=== PATIENT | female | born 1995 | race Caucasian/White ===

== ENCOUNTER → 2017-01-15 | Outpatient (CLI) | payer BC ==
[~2017-01-15] MED LIST: BCPILLS PO; ESCI1TAB10 PO
--- NOTE | 2017-01-15 09:39 | DIAGNOSTIC IMAGING REPORT ---
EXAMINATION: PELVIC ULTRASOUND CLINICAL HISTORY: AMENORRHEA PELVIC PAIN COMPARISON STUDY: None FINDINGS: The uterus measured 5.9 cm. It is retroflexed in configuration.. The endometrial stripe measured 8 mm. The right ovary measured 4.0 cm maximum with a 2.5 cm cyst. Normal vascular flow. The left ovary measured 3.2 cm with normal vascular flow. There is no ultrasonographic evidence of ovarian torsion. It should be noted that ovarian torsion can be present with normal Doppler ultrasonographic findings. There was no evidence of pathologic free pelvic fluid. IMPRESSION: 2.5 cm right ovarian cyst. Retroflexed uterus. Otherwise negative study Electronically signed by: Shailesh Rawls M.D. 01/15/2017 9:37 AM Dictated Date/Time: 01/15/2017 9:36 AM
== END | disposition home or self-care (01) ==
LOC: C.ULTR 08:56
PROVIDERS: ATTEND Nurse Practitioner Family
DX: N91.2 Amenorrhea, unspecified (principal); N94.10 Unspecified dyspareunia; N83.201 Unspecified ovarian cyst, right side; N85.4 Malposition of uterus

== ENCOUNTER → 2017-03-05 | Outpatient (CLI) | payer BC ==
--- NOTE | 2017-03-05 08:35 | DIAGNOSTIC IMAGING REPORT ---
EXAMINATION: PELVIC ULTRASOUND CLINICAL HISTORY: OVARIAN CYST CYST COMPARISON STUDY: 01/15/2017 FINDINGS: The uterus measured 5.5 cm. Retroflexed configuration.. The endometrial stripe measured 6 mm. The right ovary measured 3.2 cm with several small sub-5 mm follicular cyst.. The left ovary measured 3.3 cm with a complex 1.7 x 2.0 cm cyst. There is no ultrasonographic evidence of ovarian torsion. It should be noted that ovarian torsion can be present with normal Doppler ultrasonographic findings. There was no evidence of pathologic free pelvic fluid. IMPRESSION: 1. Near complete resolution of the patient's previous described right ovarian cyst. Several small follicular cyst. 2. Interval development of a 2 cm complex left ovarian cyst. 3. A retroflexed uterus Electronically signed by: Shailesh Rawls M.D. 03/05/2017 8:33 AM Dictated Date/Time: 03/05/2017 8:31 AM
== END | disposition home or self-care (01) ==
LOC: C.ULTR 07:52
PROVIDERS: ATTEND Nurse Practitioner Family
DX: N83.201 Unspecified ovarian cyst, right side (principal)

== ENCOUNTER → 2017-03-24 | Outpatient (CLI) | payer BC ==
--- NOTE | 2017-03-24 13:49 | DIAGNOSTIC IMAGING REPORT ---
PELVIC ULTRASOUND CLINICAL HISTORY: Ovarian cyst. COMPARISON STUDY: Pelvic ultrasound March 05, 2017. TECHNIQUE: Transabdominal and transvaginal sonography of the pelvis was performed. FINDINGS: The uterus measures 6.8 x 3.1 x 3.9 cm. Endometrium measures 5 mm in thickness. The right ovary measures 2.9 x 1.8 x 1.7 cm and the left ovary measures 2.4 x 1.6 x 1.7 cm. The left ovarian cystic lesion shown on exam of March 05, 2017 has resolved. There is color flow within each ovary. IMPRESSION: Normal pelvic ultrasound. Electronically signed by: Petye Jones M.D. 03/24/2017 1:48 PM Dictated Date/Time: 03/24/2017 1:45 PM
== END | disposition home or self-care (01) ==
LOC: C.ULTR 13:12
PROVIDERS: ATTEND Nurse Practitioner Family
DX: N83.202 Unspecified ovarian cyst, left side (principal); R10.32 Left lower quadrant pain; N94.10 Unspecified dyspareunia

== ENCOUNTER 2020-08-05 07:39 | Inpatient (IN) ==
[2020-08-05] MEDS ORDERED: MAGNESIUM SULFATE / D5W 1 GM/100 ML BAG IV ONE (07:52)
[2020-08-05] MEDS ORDERED: methylPREDNISolone 125 MG/2 ML VIAL IV STA (07:54)
[2020-08-05] MEDS ORDERED: LEVALBUTEROL TARTRATE 15 GM HFA.AER.AD INH STA (08:01)
[2020-08-05] MEDS ORDERED: TIOTROPIUM BROMIDE 5 PUFF/90 MCG INH INH STA (08:01)
[2020-08-05 08:34] LABS: Basophils # (auto) 0.02 K/uL (0-0.2); Basophils % (auto) 0.1 %; Eosinophils # (auto) 0.07 K/uL (0-0.5); Eosinophils % (auto) 0.3 %; Hemoglobin 15.7 g/dL (12.0-16.0); Immature Granulocytes # (auto) 0.06 K/uL (0.00-0.02); Immature Granulocytes % (auto) 0.3 %; Lymphocytes # (auto) 1.85 K/uL (1.2-3.4); Lymphocytes % (auto) 8.9 %; Mean Corpuscular Hemoglobin 31.5 pg (25-34); Mean Corpuscular Hgb Conc 34.1 g/dL (32-36); Mean Corpuscular Volume 92.2 fL (80-100); Mean Platelet Volume 10.5 fL (7.4-10.4); Monocytes # (auto) 2.58 K/uL (0.11-0.59); Monocytes % (auto) 12.4 %; Neutrophils # (auto) 16.26 K/uL (1.4-6.5); Platelet Count 264 K/uL (130-400); RDW Coefficient of Variation 13.7 % (11.5-14.5); RDW Standard Deviation 46.1 fL (36.4-46.3); Red Blood Count 4.99 M/uL (4.2-5.4); White Blood Count 20.84 K/uL (4.8-10.8)
[2020-08-05] MEDS ORDERED: UMECLIDINIUM BROMIDE 62.5MCG/BLISTER 7 PUFFS/INHALER INH STA (08:41)
[2020-08-05 08:45] LABS: INR 1.1 (0.9-1.1); Partial Thromboplastin Ratio 0.9; Partial Thromboplastin Time 24.6 Seconds (21.0-31.0); Prothrombin Time 11.5 Seconds (9.0-12.0)
--- NOTE | 2020-08-05 08:48 | XRay Report ---
XR chest 1V portable HISTORY: 24 years-old Female SEPSIS acute sepsis COMPARISON: Chest radiograph 01/31/2020 TECHNIQUE: Portable AP view of the chest FINDINGS: Cardiomediastinal and hilar silhouettes are within normal limits. No pneumothorax, pleural effusion, airspace consolidation or overt pulmonary edema. Bones of the chest appear grossly intact. Mid thorac ic dextroscoliosis. IMPRESSION: No acute process. ACT 112: Negative or not required by law. The above report was generated using voice recognition software. It may contain grammatical, syntax o r spelling errors. Electronically signed by: Nikhil Godinez M.D. 08/05/2020 8:46 AM
[2020-08-05 08:57] LABS: Alanine Aminotransferase 30 U/L (12-78); Albumin Level 4.3 gm/dl (3.4-5.0); Aspartate Aminotransferase 30 U/L (15-37); BUN Creatinine Ratio 19.7 (10-20); Blood Urea Nitrogen 17 mg/dl (7-18); Calcium 9.7 mg/dl (8.5-10.1); Carbon Dioxide 24 mmol/L (21-32); Chloride 107 mmol/L (98-107); Creatinine Clr Calc Pharmacy 89.3 ml/min; Est GFR (African American) 108.1; Est GFR (Non-African American) 93.2; Glucose 81 mg/dl (70-99); Magnesium 2.3 mg/dl (1.8-2.4); Potassium 3.9 mmol/L (3.5-5.1); Sodium 139 mmol/L (136-145)
[2020-08-05 09:01] LABS: Albumin Globulin Ratio 1.2 (0.9-2); Alkaline Phosphatase 53 U/L (45-117); Bilirubin,Total 0.7 mg/dl (0.2-1); Globulin 3.6 gm/dl (2.5-4.0); Total Protein 7.9 gm/dl (6.4-8.2); Troponin I < 0.015 ng/ml (0-0.045)
[2020-08-05] MEDS ORDERED: ALBUT/IPRATROP 3MG/0.5MG NEB 3 ML VIAL NEB ONE (09:27)
--- NOTE | 2020-08-05 10:52 | History & Physical Report ---
Date of Service August 05, 2020 Assessment & Plan (1) Acute respiratory failure with hypoxia: 2nd to severe asthma exacerbation. NC O2 to keep sats 92% or greater. Steroids. nebs. pulmonary toilet. COVID negative. Check rapid flu and rapid RSV. (2) Asthma with exacerbation: Severe exacerbation. Underlying allergies likely playing a role. Occupational exposure to various solvents also likely contributing. Tobacco exposure (father) at home likely worsening her symptoms. Can't rule out viral process. Plan - * 2mg/kg/day of IV solumedrol (40mg IV q8h) * duonebs q4h * mucinex BID * flutter valve * incentive spirometry * defer on antibiotics -- procalcitonin negative, cxr negative for complicating pneumonia * place on telemetry (3) Uncontrolled severe persistent asthma: As mentioned above numerous triggers are present at home and her workplace. She will need referral to pulmonary and allergy post-d/c for regular asthma care, allergy testing, etc. 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 Start controller agent with fluticasone/vilanterol. Continue singulair. Scheduled nebs. Pulmonary toilet. If she does not improve with above measures then pulmonary consult while hospitalized. (4) Allergic rhinitis: Continue singulair. Consider antihistamine. (5) Occupational exposure to chemicals: see above (6) Anxiety disorder: Cont fluoxetine. Cont buspar. add xanax 0.25mg q8h prn for hospital use only. (7) Leukocytosis: 2nd to IM steroids given at local urgent care yesterday? Procalcitonin negative. no Pneumonia on cxr. afebrile. follow. (8) DVT prophylaxis: heparin 5000 BID check urine HCG IV fluids - NS w/ KCL repeat labs am father updated by phone this evening History of Present Illness Chief Complaint: difficulty breathing Primary Care Provider: ZACHARY Martinez 24yo female with history of asthma dating back to age 3 and allergic rhinitis presents with cough productive of yellow sputum and increasing shortness of breathing with wheezing. Has been ill with asthma symptoms for about 1 month, but much worse in the last 2-3 days. No fevers or chills. No obvious COVID exposures or travel. Saw a local urgent care yesterday for the same symptoms - given IM steroids and sent home on PO steroids but never started the latter. Has been using albuterol on a daily basis since a visit for her asthma in our ER in 06/2020. Records show she received a short prednisone course at that time. Has nocturnal cough which prompts her to use the albuterol at night, but also uses albuterol frequently during the day time. Records also show another ER visit in January 2020 for her asthma. She does not smoke, but her father smokes cigarettes. She states he does so outside the home. The family does have a dog. Allergies Allergy/AdvReac Type Severity Reaction Status Date / Time CATS,DOGS,DUST Allergy Unknown HIVES Uncoded 07/05/20 13:45 Home Medications Medication Instructions Recorded Confirmed Type albuterol sulfate 2 puffs INH Q4H PRN #8 gm 01/31/20 08/05/20 Rx fluoxetine 40 mg PO QAM 01/31/20 08/05/20 History buspirone 10 mg tablet 10 mg PO BID 05/14/20 08/05/20 History albuterol sulfate 2.5 mg INHALATION UD 07/05/20 08/05/20 History L. acidophilus-L. rhamnosus 1 cap PO DAILY 08/05/20 08/05/20 History [Probiotic] montelukast 10 mg PO HS 08/05/20 08/05/20 History multivitamin 1 tab PO QAM 08/05/20 08/05/20 History Past Med/Surg History Medical History (Updated 08/05/20 @ 21:14 by Herminio Nieves) Allergic rhinitis Anxiety disorder Asthma Surgical History (Updated 08/05/20 @ 11:05 by Herminio Nieves) H/O wisdom tooth extraction Family History (Updated 08/05/20 @ 11:07 by Herminio Nieves) Father Dyslipidemia Myxoma of heart Tobacco dependency Denies family history of Asthma Social History (Updated 08/05/20 @ 11:08 by Herminio Nieves) Smoking Status: Never smoker Hx Alcohol Use: Yes Alcohol type: wine Alcohol Intake Frequency: Monthly or Less Hx Substance Use: No Communication Ability: Effective Director Of Software Development Required: No Beliefs That Will Affect Care: None marital status: Single Current Living Situation: Parent Current Living Situation Comment: father - in [place] current occupational status: employed current occupation: works at [employer]. Uses solvents at work. How many Children do You have: 0 Other Information That Helps Us Care for You: No Feels Safe at Home: Yes Safety Concerns: Feels Safe At This Time Assistive Devices: Oxygen - Continuous Review of Systems Constitutional: no fever, no chills, no body aches, no fatigue and no anorexia Eyes: no worsening vision Ear, Nose, Mouth, Throat: + nasal congestion; no sore throat no loss of taste or smell Respiratory: + cough, + dyspnea, + dyspnea on exertion, + sputum production and + wheezing Cardiovascular: + chest pain; no edema Gastrointestinal: + abdominal pain (with coughing); no nausea and no vomiting Genitourinary: LMP 3 weeks ago Musculoskeletal: no myalgia Integumentary: no rash Neurologic: no localized weakness Psychiatric: + anxiety Endocrine: denies diabetes Hematologic / Lymphatic: no easy bleeding Physical Exam Constitutional: + acute distress (mild tachypnea, but can talk in complete sentences ); not obese and no altered mental status Eyes: PERRL ENMT: Mouth: + oropharynx abnormality (cobblestoning posterior wall ) Neck: trachea midline, no thyromegaly Respiratory: + cough and + tachypneic; no retractions Auscultation: + diminished lung sounds (bases ) and + wheezes (extensive b/l, all lung segments); no crackles expiratory phase prolonged Cardiovascular: Rate/Rhythm: regular rhythm and + tachycardic Heart Sounds: normal S1 and normal S2; no murmur Vessels: posterior tibial pulses present and dorsalis pedis pulses present; no JVD Extremities: no edema Gastrointestinal (Abdomen): normal bowel sounds, soft, nontender, no hepatosp lenomegaly Musculoskeletal: no cyanosis or clubbing, extremities motor strength 5/5 Skin: no rashes, warm and dry Neurologic: moves all extremities; no focal motor deficits Psychiatric: Orientation: alert and oriented x 3 Lymphatic: no cervical lymphadenopathy Results & Data Results & Data ([facility]) Vital Signs (Past 12 Hours) Vital Signs Temp Pulse Pulse Resp BP Pulse Ox 08/05/20 10:31 135 H 22 96 08/05/20 10:30 122 H 20 152/85 H 95 08/05/20 10:01 104 H 22 97 08/05/20 10:00 100 H 20 132/88 96 08/05/20 09:52 88 18 91 08/05/20 09:31 108 H 24 93 08/05/20 09:30 112 H 20 158/97 H 92 08/05/20 09:01 130 H 23 93 08/05/20 09:00 20 133/89 93 08/05/20 08:38 97 08/05/20 08:37 104 H 22 94 08/05/20 08:31 119 H 22 94 08/05/20 08:30 114 H 20 132/109 H 93 08/05/20 08:29 23 154/102 H 94 08/05/20 08:27 104 H 20 95 08/05/20 07:47 37.2 C 116 H 24 133/87 87 L Laboratory Results Laboratory Results - last 24 hr 08/05/20 08/05/20 08/05/20 08:18 08:18 08:18 WBC 20.84 H RBC 4.99 Hgb 15.7 Hct 46.0 MCV 92.2 MCH 31.5 MCHC 34.1 RDW Std Deviation 46.1 RDW Coeff of Noé 13.7 Plt Count 264 MPV 10.5 H Immature Gran % (Auto) 0.3 Neut % (Auto) 78.0 Lymph % (Auto) 8.9 [place] % (Auto) 12.4 Eos % (Auto) 0.3 Baso % (Auto) 0.1 Neut # (Auto) 16.26 H Lymph # (Auto) 1.85 [place] # (Auto) 2.58 H Eos # (Auto) 0.07 Baso # (Auto) 0.02 Immature Gran # (Auto) 0.06 H PT 11.5 INR 1.1 APTT 24.6 PTT Ratio 0.9 Sodium 139 Potassium 3.9 Chloride 107 Carbon Dioxide 24 Anion Gap 8.0 BUN 17 Creatinine 0.86 Est Cr Clr Drug Dosing 89.3 Est GFR ( Amer) 108.1 Est GFR (Non-Af Amer) 93.2 BUN/Creatinine Ratio 19.7 Glucose 81 Lactate Calcium 9.7 Magnesium 2.3 Total Bilirubin 0.7 AST 30 ALT 30 Alkaline Phosphatase 53 Troponin I < 0.015 Total Protein 7.9 Albumin 4.3 Globulin 3.6 Albumin/Globulin Ratio 1.2 Procalcitonin COVID-19 Eval Order SARS-CoV-2, RNA, NAAT 08/05/20 08/05/20 08/05/20 08:18 08:18 08:30 WBC RBC Hgb Hct MCV MCH MCHC RDW Std Deviation RDW Coeff of Noé Plt Count MPV Immature Gran % (Auto) Neut % (Auto) Lymph % (Auto) [place] % (Auto) Eos % (Auto) Baso % (Auto) Neut # (Auto) Lymph # (Auto) [place] # (Auto) Eos # (Auto) Baso # (Auto) Immature Gran # (Auto) PT INR APTT PTT Ratio Sodium Potassium Chloride Carbon Dioxide Anion Gap BUN Creatinine Est Cr Clr Drug Dosing Est GFR ( Amer) Est GFR (Non-Af Amer) BUN/Creatinine Ratio Glucose Lactate 1.3 Calcium Magnesium Total Bilirubin AST ALT Alkaline Phosphatase Troponin I Total Protein Albumin Globulin Albumin/Globulin Ratio Procalcitonin < 0.05 COVID-19 Eval [facility] SARS-CoV-2, RNA, NAAT 08/05/20 08:30 WBC RBC Hgb Hct MCV MCH MCHC RDW Std Deviation RDW Coeff of Noé Plt Count MPV Immature Gran % (Auto) Neut % (Auto) Lymph % (Auto) [place] % (Auto) Eos % (Auto) Baso % (Auto) Neut # (Auto) Lymph # (Auto) [place] # (Auto) Eos # (Auto) Baso # (Auto) Immature Gran # (Auto) PT INR APTT PTT Ratio Sodium Potassium Chloride Carbon Dioxide Anion Gap BUN Creatinine Est Cr Clr Drug Dosing Est GFR ( Amer) Est GFR (Non-Af Amer) BUN/Creatinine Ratio Glucose Lactate Calcium Magnesium Total Bilirubin AST ALT Alkaline Phosphatase Troponin I Total Protein Albumin Globulin Albumin/Globulin Ratio Procalcitonin COVID-19 Eval Order SARS-CoV-2, RNA, NAAT NEGATIVE Diagnostic Findings cxr: no infiltrates EKG: NSR, no ST changes Code Status & VTE Plan Code Status full VTE Prophylaxis Plan VTE Prophylaxis will be ordered: Yes PG Care Time/CCT Total # of Minutes Spent Total Time Spent with Patient: Total time spent is greater than 50% in coordi nation of care (as documented) at patient's floor/unit and/or counseling patient: Coding Level of Care Code 85791 Initial Inpt Care Lvl 3 Diagnoses Acute respiratory failure with hypoxia J96.01 Asthma with exacerbation J45.51 Asthma severity: severe Asthma persistence: persistent Uncontrolled severe persistent asthma J45.50 Allergic rhinitis J30.89 Allergic rhinitis trigger: other Allergic rhinitis seasonality: unspecified Occupational exposure to chemicals Z77.098 Anxiety disorder F41.9 Leukocytosis D72.829 DVT prophylaxis Z29.9 (1) Asthma with exacerbation Asthma severity: severe Asthma persistence: persistent Qualified Code(s): J45.51 - Severe persistent asthma with (acute) exacerbation (2) Allergic rhinitis Allergic rhinitis trigger: other Allergic rhinitis seasonality: unspecified Qualified Code(s): J30.89 - Other allergic rhinitis
--- NOTE | 2020-08-05 11:11 | Electrocardiogram Report ---
Test Reason : Blood Pressure : / mmHG Vent. Rate : 089 BPM Atrial Rate : 089 BPM P-R Int : 108 ms QRS Dur : 070 ms QT Int : 352 ms P-R-T Axes : 048 058 056 degrees QTc Int : 428 ms Poor data quality, interpretation may be adversely affected Sinus rhythm with sinus arrhythmia Otherwise normal ECG When compared with ECG of 31-JAN-2020 13:34, No significant change was found Confirmed by Christiano Dos Santos ([id number]) on 08/05/2020 11:11:04 AM Referred By: REFERRED SELF Confirmed By:Vaughn Dos Santos
[2020-08-05] MEDS ORDERED: ALBUTEROL HFA 8 GM INHALER INH PRN (12:33)
[2020-08-05] MEDS ORDERED: ACETAMINOPHEN 325 MG TAB PO PRN (12:33)
[2020-08-05] MEDS: ALBUT/IPRATROP 3MG/0.5MG NEB 3 ML VIAL NEB SCH ×3 (13:58→20:35)
[2020-08-05] MEDS: methylPREDNISolone 40 MG in SYRINGE 0 ML IV SCH ×2 (14:02→21:20)
[2020-08-05] MEDS: NSS + 20MEQ KCL 20 MEQ/1,000 ML BAG IV SCH ×2 (14:02→23:46)
[2020-08-05] MEDS: guaiFENesin 600 MG TABCR PO SCH ×2 (16:55→22:24)
[2020-08-05] MEDS: FAMOTIDINE 20 MG TAB PO SCH ×2 (16:55→22:24)
[2020-08-05 17:47] LABS: Appearance Urine Clear (Clear); Bilirubin Urine Negative (Negative); Blood Urine Negative (Negative); Color Urine Yellow; Glucose Urine UA Negative (Negative); Ketones Urine 1+ (Negative); Leukocyte Esterase Urine Negative (Negative); Nitrite Urine Negative (Negative); Protein Urine Negative (Negative); Specific Gravity Urine 1.008 (1.000-1.030); Urobilinogen Urine Negative (Negative)
[2020-08-05 17:48] LABS: Pregnancy Test, Urine Negative (Negative)
[2020-08-05 18:52] LABS: Influenza A virus by PCR Negative (Negative); Influenza B virus by PCR Negative (Negative); RSV by PCR Negative (Negative)
[2020-08-05] MEDS ORDERED: LEVALBUTEROL 1.25MG/0.5ML NEB NEB SCH (19:30)
[2020-08-05] MEDS: LEVALBUTEROL HCL 1.25 MG/3 ML NEB NEB SCH (20:15)
[2020-08-05] MEDS ORDERED: busPIRone 5 MG TAB PO SCH (21:00)
[2020-08-05] MEDS: HEPARIN SOD 5,000 UNIT/0.5 ML VIAL SQ SCH (21:19)
[2020-08-05] MEDS: FLUTICASONE/VILANTEROL 200/25MCG 14 PUFFS/INHALER INH SCH (21:19)
[2020-08-05] MEDS: MONTELUKAST SODIUM 10 MG TABLET PO SCH (21:20)
[2020-08-06] MEDS: LEVALBUTEROL HCL 1.25 MG/3 ML NEB NEB SCH ×4 (00:17→20:21)
[2020-08-06] MEDS: methylPREDNISolone 40 MG in SYRINGE 0 ML IV SCH ×3 (06:08→20:49)
[2020-08-06 06:53] LABS: Hematocrit (blood only) 44.2 % (37-47); Hemoglobin 14.7 g/dL (12.0-16.0); Mean Corpuscular Hemoglobin 31.1 pg (25-34); Mean Corpuscular Hgb Conc 33.3 g/dL (32-36); Mean Corpuscular Volume 93.6 fL (80-100); Mean Platelet Volume 10.3 fL (7.4-10.4); Platelet Count 228 K/uL (130-400); RDW Coefficient of Variation 13.8 % (11.5-14.5); RDW Standard Deviation 47.6 fL (36.4-46.3); Red Blood Count 4.72 M/uL (4.2-5.4); White Blood Count 10.56 K/uL (4.8-10.8)
[2020-08-06 07:18] LABS: BUN Creatinine Ratio 16.4 (10-20); Creatinine Clr Calc Pharmacy 90.4 ml/min; Est GFR (African American) 109.6; Est GFR (Non-African American) 94.6; Potassium 4.1 mmol/L (3.5-5.1)
[2020-08-06] MEDS: FLUTICASONE/VILANTEROL 200/25MCG 14 PUFFS/INHALER INH SCH (08:15)
[2020-08-06] MEDS: FAMOTIDINE 20 MG TAB PO SCH ×2 (08:16→20:50)
[2020-08-06] MEDS: MULTIVITAMIN TAB PO SCH (08:16)
[2020-08-06] MEDS: busPIRone 5 MG TAB PO SCH ×3 (08:16→20:50)
[2020-08-06] MEDS: guaiFENesin 600 MG TABCR PO SCH ×2 (08:16→20:49)
[2020-08-06] MEDS: ADVANCED PROBIOTIC 1250 MG CAPSULE PO SCH (08:17)
[2020-08-06] MEDS: FLUoxetine HCL 20 MG CAP PO SCH (08:17)
[2020-08-06] MEDS: HEPARIN SOD 5,000 UNIT/0.5 ML VIAL SQ SCH ×2 (08:19→20:06)
--- NOTE | 2020-08-06 11:12 | Emergency Department Note ---
History of Present Illness General Chief complaint: Respiratory Problems Stated complaint: ASTHMA FLARE UP Time Seen by Provider: 08/05/20 07:51 Source: patient, RN notes reviewed and old records reviewed Mode of arrival: ambulatory Limitations: no limitations History of Present Illness Provider complaint: Asthma excaerbation Onset (ago): day(s) 3 Location: chest Radiation: non-radiation Severity: moderate Pain Consistency: + intermittent Maximum Pain Intensity: 2 Current Pain Intensity: 2 Quality: + aching Relieved By: + immobilization Exacerbated By: + movement Associated symptoms: no fever/chills, no headaches, no nausea/vomiting and no weakness Treatments prior to arrival: other (Solumedrol) This is a 24-year-old female who presents emergency department with an asthma exacerbation. The patient reports she went to [facility] yesterday and received Solu-Medrol for her asthma exacerbation. She reports she was to start prednisone today however became short of breath before she could fill at the pharmacy. Patient reports exertion makes the shortness of breath worse however rest makes it better. Home Medications Medication Instructions Recorded Confirmed Type albuterol sulfate 2 puffs INH Q4H PRN #8 gm 01/31/20 08/05/20 Rx fluoxetine 40 mg PO QAM 01/31/20 08/05/20 History buspirone 10 mg tablet 10 mg PO BID 05/14/20 08/05/20 History albuterol sulfate 2.5 mg INHALATION UD 07/05/20 08/05/20 History L. acidophilus-L. rhamnosus 1 cap PO DAILY 08/05/20 08/05/20 History [Probiotic] montelukast 10 mg PO HS 08/05/20 08/05/20 History multivitamin 1 tab PO QAM 08/05/20 08/05/20 History Allergies Allergy/AdvReac Type Severity Reaction Status Date / Time CATS,DOGS,DUST Allergy Unknown HIVES Uncoded 07/05/20 13:45 Past Med/Surg History Medical History Allergic rhinitis Anxiety disorder Asthma Surgical History H/O wisdom tooth extraction Family History Father Dyslipidemia Myxoma of heart Tobacco dependency Denies family history of Asthma Social History Smoking Status: Never smoker Hx Alcohol Use: Yes Alcohol type: wine Alcohol Intake Frequency: Monthly or Less Hx Substance Use: No Communication Ability: Effective Stopboard Assembler Required: No Beliefs That Will Affect Care: None marital status: Single Current Living Situation: Parent Current Living Situation Comment: father - in [place] current occupational status: employed current occupation: works at [employer]. Uses solvents at work. How many Children do You have: 0 Other Information That Helps Us Care for You: No Feels Safe at Home: Yes Safety Concerns: Feels Safe At This Time Assistive Devices: Oxygen - Continuous Review of Systems A total of 10 systems reviewed and were otherwise negative Physical Exam VITAL SIGNS - Vital signs and nursing notes were reviewed. GENERAL - 24-year-old female appearing stated age who is in moderate distress. Communicates well with provider and answers questions appropriately. SKIN - Without rashes. HEAD - NC/AT. EYES - PERRL with EOMI bilaterally. Sclera anicteric. Palpebral conjunctiva pink and moist with no injection noted. EARS - No deformities of external structures noted on gross examination bilaterally. No pain elicited with palpation of the tragus bilaterally. External auditory canals without discharge or otorrhea. Tympanic membranes pearly honeycutt without retraction or bulging. No fluid or purulent material visualized behind the TM. Handle of malleus, umbo, cone of light, pars tensa/flaccid all easily visualized. NOSE - Midline and without cyanosis. No epistaxis or purulent drainage noted. Septum midline without deviation or septal hematoma noted. MOUTH/OROPHARYNX - Without perioral cyanosis. Buccal mucosa pink and moist and without leukoplakia. Tongue midline with equal elevation of palate bilaterally. No tonsillar hypertrophy, erythema, or exudates noted. dentition noted. NECK - Neck with FROM. Supple to palpation. lymphadenopathy noted. No nuchal rigidity. LUNGS -diffuse wheezing present in all lung george. CARDIAC - RRR with S1/S2. No murmur, rubs, or gallops appreciated. ABDOMEN - Abdominal contour without pulsations or visible masses. BS normoactive all four quadrants. No tenderness, palpable masses, hepatosplenomegaly, or ascites noted. EXTREMITIES - No clubbing or peripheral cyanosis. No pretibial edema present. +3/5 radial, posterior tibial, and dorsalis pedis pulses palpated throughout. +5/5 strength noted in UE/LE bilaterally. NEUROLOGIC - Cranial nerves II through XII grossly intact. Sensory intact to light touch throughout. Patellar reflexes +2/4. PSYCH - A&Ox3 and cooperates fully with examiner. Pt is very pleasant and interacts well with examiner. Course Administered Medications Acetaminophen (Acetaminophen 325 Mg Tab) 650 mg PO Q4H PRN PRN Reason: Pain or Fever Stop: 09/04/20 12:32 Last Admin: 08/05/20 14:07 Dose: 650 mg Documented by: [id number] Buspirone HCl (Buspirone 5 Mg Tab) 10 mg PO TID [facility] Stop: 09/05/20 08:59 Last Admin: 08/06/20 08:16 Dose: 10 mg Documented by: [id number] Famotidine (Famotidine 20 Mg Tab) 20 mg PO BID [facility] Stop: 09/04/20 12:32 Last Admin: 08/06/20 08:16 Dose: 20 mg Documented by: [id number] Admin: 08/05/20 22:24 Dose: 20 mg Documented by: [id number] Admin: 08/05/20 16:55 Dose: 20 mg Documented by: [id number] Fluoxetine HCl (Fluoxetine Hcl 20 Mg Cap) 40 mg PO QAM [facility] Stop: 09/05/20 08:59 Last Admin: 08/06/20 08:17 Dose: 40 mg Documented by: [id number] Fluticasone/Vilanterol (Fluticasone/Vilanterol 200/25mcg 14 Puffs/Inhaler) 1 puffs INH DAILY [facility] Stop: 09/04/20 20:59 Last Admin: 08/06/20 08:15 Dose: 1 puffs Documented by: [id number] Admin: 08/05/20 21:19 Dose: 1 puffs Documented by: [id number] Guaifenesin (Guaifenesin 600 Mg Tabcr) 1,200 mg PO Q12 [facility] Stop: 09/04/20 12:32 Last Admin: 08/06/20 08:16 Dose: 1,200 mg Documented by: [id number] Admin: 08/05/20 22:24 Dose: 1,200 mg Documented by: [id number] Admin: 08/05/20 16:55 Dose: 1,200 mg Documented by: [id number] Heparin Sodium (Porcine) (Heparin Sod 5,000 Unit/0.5 Ml Vial) 5,000 units SQ Q12 [facility] Stop: 09/04/20 20:59 Last Admin: 08/06/20 08:19 Dose: Not Given Documented by: [id number] Admin: 08/05/20 21:19 Dose: Not Given Documented by: [id number] Methylprednisolone 40 mg/ (Syringe) 0.64 mls @ 1.5 mls/min IV Q8H [facility] Stop: 09/04/20 14:29 Last Admin: 08/06/20 06:08 Dose: 1.5 mls/min Documented by: [id number] Admin: 08/05/20 21:20 Dose: 1.5 mls/min Documented by: [id number] Admin: 08/05/20 14:02 Dose: 1.5 mls/min Documented by: [id number] Lactobacillus Acidoph/Casei/Rhamnos (Advanced Probiotic 1250 Mg Capsule) 2 cap PO DAILY [facility] Stop: 09/05/20 08:59 Last Admin: 08/06/20 08:17 Dose: 2 cap Documented by: [id number] Levalbuterol HCl (Levalbuterol Hcl 1.25 Mg/3 Ml Neb) 1.25 mg NEB Q6R [facility] Stop: 09/04/20 19:29 Last Admin: 08/06/20 06:59 Dose: 1.25 mg Documented by: [id number] Admin: 08/06/20 00:17 Dose: 1.25 mg Documented by: [id number] Admin: 08/05/20 20:15 Dose: 1.25 mg Documented by: [id number] Montelukast Sodium (Montelukast Sodium 10 Mg Tablet) 10 mg PO HS [facility] Stop: 09/04/20 20:59 Last Admin: 08/05/20 21:20 Dose: 10 mg Documented by: [id number] Multivitamins (Multivitamin Tab) 1 tab PO QAM [facility] Stop: 09/05/20 08:59 Last Admin: 08/06/20 08:16 Dose: 1 tab Documented by: [id number] Discontinued Medications Albuterol (Albut/Ipratrop 3mg/0.5mg Neb 3 Ml Vial) 12 ml NEB ONE ONE Stop: 08/05/20 09:28 Last Admin: 08/05/20 09:52 Dose: 12 ml Documented by: [id number] Albuterol (Albut/Ipratrop 3mg/0.5mg Neb 3 Ml Vial) 3 ml NEB Q4R [facility] Stop: 09/04/20 13:59 Last Admin: 08/05/20 20:35 Dose: Not Given Documented by: [id number] Admin: 08/05/20 14:07 Dose: Not Given Documented by: [id number] Admin: 08/05/20 13:58 Dose: 3 ml Documented by: [id number] Buspirone HCl (Buspirone 5 Mg Tab) 10 mg PO BID [facility] Stop: 09/04/20 20:59 Last Admin: 08/05/20 19:10 Dose: 10 mg Documented by: [id number] Magnesium Sulfate/Dextrose (Magnesium Sulfate / D5w) 1 gm in 100 mls @ 50 mls/hr IV ONE ONE Stop: 08/05/20 09:51 Last Infusion: 08/05/20 10:41 Dose: 0 mls/hr Documented by: [id number] Admin: 08/05/20 08:25 Dose: 50 mls/hr Documented by: [id number] Potassium Chloride/Sodium Chloride (Normal Saline W/20 Meq Kcl) 20 meq in 1,000 mls @ 100 mls/hr IV .Q10H [facility] Stop: 08/06/20 08:59 Last Infusion: 08/06/20 09:59 Dose: 0 mls/hr Documented by: [id number] Admin: 08/05/20 23:46 Dose: 100 mls/hr Documented by: [id number] Infusion: 08/05/20 23:46 Dose: 100 mls/hr Documented by: [id number] Admin: 08/05/20 14:02 Dose: 100 mls/hr Documented by: [id number] Levalbuterol HCl (Levalbuterol Tartrate 15 Gm Hfa.Aer.Ad) 2 puffs INH NOW STA Stop: 08/05/20 08:02 Last Admin: 08/05/20 09:01 Dose: 2 puffs Documented by: [id number] Levalbuterol HCl (Levalbuterol 1.25mg/0.5ml Neb) 1.25 mg NEB Q6R [facility] Stop: 09/04/20 19:29 Last Admin: 08/05/20 20:36 Dose: Not Given Documented by: [id number] Methylprednisolone (Methylprednisolone 125 Mg/2 Ml Vial) 125 mg IV NOW STA Stop: 08/05/20 07:55 Last Admin: 08/05/20 08:24 Dose: 125 mg Documented by: [id number] Tiotropium [place] (Tiotropium [place] 5 Puff/90 Mcg Inh) 1 puffs INH NOW STA Stop: 08/05/20 08:02 Last Admin: 08/05/20 09:01 Dose: Not Given Documented by: [id number] Umeclidinium [place] (Umeclidinium [place] 62.5mcg/Blister 7 Puffs/Inhaler) 1 puffs INH NOW STA Stop: 08/05/20 08:42 Last Admin: 08/05/20 09:02 Dose: 1 puffs Documented by: [id number] Medical Decision Making Differential Diagnosis Reactive airway disease, pneumonia, pneumothorax, COPD, CHF, infections, cardiac ischemia, pulmonary embolism, musculoskeletal, gastrointestinal, as well as other pathologies. Medical Records Attestation: I reviewed the patient's medical records. Home Medications Current Medication List: was personally reviewed by me Laboratory Data Attestation: I reviewed the patient's lab results. Result diagrams: 08/06/20 06:27 08/06/20 06:27 Lab Results 08/05/20 08/05/20 08/05/20 Range/Units 08:18 08:18 08:18 WBC 20.84 H (4.8-10.8) K/uL RBC 4.99 (4.2-5.4) M/uL Hgb 15.7 (12.0-16.0) g/dL Hct 46.0 (37-47) % MCV 92.2 (80-100) fL MCH 31.5 (25-34) pg MCHC 34.1 (32-36) g/dL RDW Std Deviation 46.1 (36.4-46.3) fL RDW Coeff of Noé 13.7 (11.5-14.5) % Plt Count 264 (130-400) K/uL MPV 10.5 H (7.4-10.4) fL Immature Gran % (Auto) 0.3 % Neut % (Auto) 78.0 % Lymph % (Auto) 8.9 % [place] % (Auto) 12.4 % Eos % (Auto) 0.3 % Baso % (Auto) 0.1 % Neut # (Auto) 16.26 H (1.4-6.5) K/uL Lymph # (Auto) 1.85 (1.2-3.4) K/uL [place] # (Auto) 2.58 H (0.11-0.59) K/uL Eos # (Auto) 0.07 (0-0.5) K/uL Baso # (Auto) 0.02 (0-0.2) K/uL Immature Gran # (Auto) 0.06 H (0.00-0.02) K/uL PT 11.5 (9.0-12.0) Seconds INR 1.1 (0.9-1.1) APTT 24.6 (21.0-31.0) Seconds PTT Ratio 0.9 Sodium 139 (136-145) mmol/L Potassium 3.9 (3.5-5.1) mmol/L Chloride 107 (98-107) mmol/L Carbon Dioxide 24 (21-32) mmol/L Anion Gap 8.0 (3-11) BUN 17 (7-18) mg/dl Creatinine 0.86 (0.6-1.2) mg/dl Est Cr Clr Drug Dosing 89.3 ml/min Est GFR ( Amer) 108.1 Est GFR (Non-Af Amer) 93.2 BUN/Creatinine Ratio 19.7 (10-20) Glucose 81 (70-99) mg/dl Lactate (0.4-2.0) mmol/L Calcium 9.7 (8.5-10.1) mg/dl Magnesium 2.3 (1.8-2.4) mg/dl Total Bilirubin 0.7 (0.2-1) mg/dl AST 30 (15-37) U/L ALT 30 (12-78) U/L Alkaline Phosphatase 53 (45-117) U/L Troponin I < 0.015 (0-0.045) ng/ml Total Protein 7.9 (6.4-8.2) gm/dl Albumin 4.3 (3.4-5.0) gm/dl Globulin 3.6 (2.5-4.0) gm/dl Albumin/Globulin Ratio 1.2 (0.9-2) Procalcitonin (0-0.5) ng/ml COVID-19 Eval Order SARS-CoV-2, RNA, NAAT (NEGATIVE) 08/05/20 08/05/20 08/05/20 Range/Units 08:18 08:18 08:30 WBC (4.8-10.8) K/uL RBC (4.2-5.4) M/uL Hgb (12.0-16.0) g/dL Hct (37-47) % MCV (80-100) fL MCH (25-34) pg MCHC (32-36) g/dL RDW Std Deviation (36.4-46.3) fL RDW Coeff of Noé (11.5-14.5) % Plt Count (130-400) K/uL MPV (7.4-10.4) fL Immature Gran % (Auto) % Neut % (Auto) % Lymph % (Auto) % [place] % (Auto) % Eos % (Auto) % Baso % (Auto) % Neut # (Auto) (1.4-6.5) K/uL Lymph # (Auto) (1.2-3.4) K/uL [place] # (Auto) (0.11-0.59) K/uL Eos # (Auto) (0-0.5) K/uL Baso # (Auto) (0-0.2) K/uL Immature Gran # (Auto) (0.00-0.02) K/uL PT (9.0-12.0) Seconds INR (0.9-1.1) APTT (21.0-31.0) Seconds PTT Ratio Sodium (136-145) mmol/L Potassium (3.5-5.1) mmol/L Chloride (98-107) mmol/L Carbon Dioxide (21-32) mmol/L Anion Gap (3-11) BUN (7-18) mg/dl Creatinine (0.6-1.2) mg/dl Est Cr Clr Drug Dosing ml/min Est GFR ( Amer) Est GFR (Non-Af Amer) BUN/Creatinine Ratio (10-20) Glucose (70-99) mg/dl Lactate 1.3 (0.4-2.0) mmol/L Calcium (8.5-10.1) mg/dl Magnesium (1.8-2.4) mg/dl Total Bilirubin (0.2-1) mg/dl AST (15-37) U/L ALT (12-78) U/L Alkaline Phosphatase (45-117) U/L Troponin I (0-0.045) ng/ml Total Protein (6.4-8.2) gm/dl Albumin (3.4-5.0) gm/dl Globulin (2.5-4.0) gm/dl Albumin/Globulin Ratio (0.9-2) Procalcitonin < 0.05 (0-0.5) ng/ml COVID-19 Eval [facility] SARS-CoV-2, RNA, NAAT (NEGATIVE) 08/05/20 Range/Units 08:30 WBC (4.8-10.8) K/uL RBC (4.2-5.4) M/uL Hgb (12.0-16.0) g/dL Hct (37-47) % MCV (80-100) fL MCH (25-34) pg MCHC (32-36) g/dL RDW Std Deviation (36.4-46.3) fL RDW Coeff of Noé (11.5-14.5) % Plt Count (130-400) K/uL MPV (7.4-10.4) fL Immature Gran % (Auto) % Neut % (Auto) % Lymph % (Auto) % [place] % (Auto) % Eos % (Auto) % Baso % (Auto) % Neut # (Auto) (1.4-6.5) K/uL Lymph # (Auto) (1.2-3.4) K/uL [place] # (Auto) (0.11-0.59) K/uL Eos # (Auto) (0-0.5) K/uL Baso # (Auto) (0-0.2) K/uL Immature Gran # (Auto) (0.00-0.02) K/uL PT (9.0-12.0) Seconds INR (0.9-1.1) APTT (21.0-31.0) Seconds PTT Ratio Sodium (136-145) mmol/L Potassium (3.5-5.1) mmol/L Chloride (98-107) mmol/L Carbon Dioxide (21-32) mmol/L Anion Gap (3-11) BUN (7-18) mg/dl Creatinine (0.6-1.2) mg/dl Est Cr Clr Drug Dosing ml/min Est GFR ( Amer) Est GFR (Non-Af Amer) BUN/Creatinine Ratio (10-20) Glucose (70-99) mg/dl Lactate (0.4-2.0) mmol/L Calcium (8.5-10.1) mg/dl Magnesium (1.8-2.4) mg/dl Total Bilirubin (0.2-1) mg/dl AST (15-37) U/L ALT (12-78) U/L Alkaline Phosphatase (45-117) U/L Troponin I (0-0.045) ng/ml Total Protein (6.4-8.2) gm/dl Albumin (3.4-5.0) gm/dl Globulin (2.5-4.0) gm/dl Albumin/Globulin Ratio (0.9-2) Procalcitonin (0-0.5) ng/ml COVID-19 Eval Order SARS-CoV-2, RNA, NAAT NEGATIVE (NEGATIVE) Imaging Data Radiologist's Impression: [facility], [id number] XRay Report Patient: SUMEET GREER Date: 08/05/20#: [id number][address] ID:[id number]: Date: 1995[facility] Zip: [place], [place] [address]Utd: 24Location: EDSex: FRoom/Bed:Att Phy:Diagnosis: ASTHMA FLARE UPPri Phy: Kat Orta CRNPService Date: 08/05/20Fa Phy:Interpreting Phy: Brodie GodinezAdmit Phy: Ordering Phy: Dru Felipe MD cc: ~ XR chest 1V portable HISTORY: 24 years-old Female SEPSIS acute sepsis COMPARISON: Chest radiograph 01/31/2020 TECHNIQUE: Portable AP view of the chest FINDINGS: Cardiomediastinal and hilar silhouettes are within normal limits. No pneumothorax, pleural effusion, airspace consolidation or overt pulmonary edema. Bones of the chest appear grossly intact. Mid thoracic dextroscoliosis. IMPRESSION: No acute process. ACT 112: Negative or not required by law. The above report was generated using voice recognition software. It may contain grammatical, syntax or spelling errors. Electronically signed by: Nikhil Godinez M.D. 08/05/2020 8:46 AM Dictated: 08/05/20844Transcribed: 08/05/20844 ECG Data Attestation: I personally reviewed and interpreted this ECG as follows: Indication: + SOB/dyspnea Rate (beats per minute): 89 Rhythm: + sinus with SA ECG Intervals/blocks: + Normal QT-c (428) ECG [place]: + Normal ECG ST segments: no ST depression and no ST elevation Comparison ECG Date: from (01/31/2020) Change: no significant change MDM Narrative Patient was seen and evaluated as above in room A3. Review was performed of nursing notes and vital signs. I did review pertinent previous visits and patient history. After obtaining a thorough history and physical examination the above work up was performed. This is a 24-year-old female who presents the emergency department with inc reasing shortness of breath. Patient was unable to get her prednisone filled. She is hypoxic and is currently on oxygen here in the emergency department. She was given an hour-long breathing treatment as well as Xopenex breathing treatments. She was started on Solu-Medrol here as well as magnesium. Due to the patient still having difficulties I did discuss the case with the hospitalist service who did agreed admit the patient. She does not have an elevation in troponin her EKG shows no evidence of ischemia. An order was placed for continuous cardiac monitoring. The monitor shows a rate of 100 with Normal SInus rhythm. The patient was evaluated during a period of high volume and high acuity while the hospital was at overcapacity during the global COVID-19 pandemic, and that diagnosis was suspected/considered upon their initial presentation. Their evaluation, treatment and testing was consistent with current guidelines for patients who present with complaints or symptoms that may be related to COVID- 19. Impression & Plan Asthma with exacerbation, Uncontrolled severe persistent asthma Discharge Plan Visit Data Chief Complaint: Respiratory Problems Stated Complaint: ASTHMA FLARE UP ED Provider: Dru Felipe Discharge Problem: Asthma with exacerbation, Uncontrolled severe persistent asthma Patient Disposition: Admitted As Inpatient Discharge Instructions Interventions: ED Discharge Assessment Last Done: 08/05/20 12:24 Discharge Problem: Asthma with exacerbation Qualifiers: Asthma severity: unspecified severity Asthma persistence: unspecified Qualified Code(s): J45.901 - Unspecified asthma with (acute) exacerbation
[2020-08-06] MEDS: ONDANSETRON INJ 2 MG/ML 2 ML VIAL IV PRN (20:49)
[2020-08-06] MEDS: ALPRAZolam 0.25 MG TABLET PO PRN (20:49)
[2020-08-06] MEDS: MONTELUKAST SODIUM 10 MG TABLET PO SCH (20:50)
--- NOTE | 2020-08-06 22:31 | Hospitalist Progress Note ---
Date of Service August 06, 2020 Assessment & Plan (1) Acute respiratory failure with hypoxia: 2nd to severe asthma exacerbation. Patient does not appear to be taking mainatance asthma meds at home. She would like benfit from not being around smokers. Unsure if father is interested in quiting. NC O2 to keep sats 92% or greater. will continue Steroids. nebs. continue maintanence inhaler: steroid and beta agonist pulmonary toilet. COVID negative. (2) Asthma with exacerbation: Severe exacerbation. Underlying allergies likely playing a role. Occupational exposure to various solvents also likely contributing. Tobacco exposure (father) at home likely worsening her symptoms. Can't rule out viral process. Plan - * 2mg/kg/day of IV solumedrol (40mg IV q8h) * duonebs q4h * mucinex BID * flutter valve * incentive spirometry * defer on antibiotics -- procalcitonin negative, cxr negative for complicating pneumonia * place on telemetry (3) Uncontrolled severe persistent asthma: As mentioned above numerous triggers are present at home and her workplace. She will need referral to pulmonary and allergy post-d/c for regular asthma care, allergy testing, etc. 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 Start controller agent with fluticasone/vilanterol. Continue singulair. Scheduled nebs. Pulmonary toilet. Patient appears to be improving. (4) Allergic rhinitis: Continue singulair. Consider antihistamine. (5) Occupational exposure to chemicals: see above (6) Anxiety disorder: Cont fluoxetine. Cont buspar. add xanax 0.25mg q8h prn for hospital use only. (7) Leukocytosis: 2nd to IM steroids given at local urgent care yesterday? Procalcitonin negative. no Pneumonia on cxr. afebrile. follow. (8) DVT prophylaxis: heparin 5000 BID check urine HCG IV fluids - NS w/ KCL repeat labs am father updated by phone this evening Admission and Anticipated Discharge Date Admission Date: August 05, 2020 Subjective This is a pleasant 24 yo female who reports feeling better. She states her chest feels somewhat congestive and it is diffuclt for her to bring things up. She reports her father does not smoke in the house, but the house does smell like smoke. She continues to require oxygen via nasal cannula. She does not take resuce inhalers. She reports she goes to the ER about 3 times in past year and this is her first admission. Review of Systems Review of Systems: All systems reviewed & are unremarkable except as noted in HPI & below Physical Exam Physical Exam: Constitutional: not obese and no altered mental status Eyes: PERRL ENMT: Mouth: + oropharynx abnormality (cobblestoning posterior wall ) Neck: trachea midline, no thyromegaly Respiratory: Auscultation: + diminished lung sounds (bases ) and + wheezes: mild bilaterally ; no crackles expiratory phase prolonged Cardiovascular: Rate/Rhythm: regular rhythm and + tachycardic Heart Sounds: normal S1 and normal S2; no murmur Vessels: posterior tibial pulses present and dorsalis pedis pulses present; no JVD Extremities: no edema Gastrointestinal (Abdomen): normal bowel sounds, soft, nontender, no hepatosplenomegaly Musculoskeletal: no cyanosis or clubbing, extremities motor strength 5/5 Skin: no rashes, warm and dry Neurologic: moves all extremities; no focal motor deficits Psychiatric: Orientation: alert and oriented x 3 Lymphatic: no cervical lymphadenopathy Results & Data Results & Data ([facility]) Vital Signs (Past 12 Hours) Vital Signs Temp Pulse Pulse Pulse Resp BP Pulse Ox 08/06/20 20:24 70 18 97 08/06/20 19:37 37.0 C 79 20 134/86 94 08/06/20 16:00 36.8 C 75 18 150/91 H 95 08/06/20 15:50 82 08/06/20 13:24 115 H 18 96 08/06/20 11:52 36.8 C 78 18 138/86 95 PG Care Time/CCT Total # of Minutes Spent Total Time Spent with Patient: Total time spent is greater than 50% in coordination of care (as documented) at patient's floor/unit and/or counseling patient: Coding Level of Care Code 95332 Subseq Hosp Care Lvl 3 Diagnoses Acute respiratory failure with hypoxia J96.01 Asthma with exacerbation J45.901 Asthma persistence: unspecified Asthma severity: unspecified severity Uncontrolled severe persistent asthma J45.50 Allergic rhinitis J30.89 Allergic rhinitis seasonality: unspecified Allergic rhinitis trigger: other Occupational exposure to chemicals Z77.098 Anxiety disorder F41.9 Leukocytosis D72.829 DVT prophylaxis Z29.9 (1) Asthma with exacerbation Asthma persistence: unspecified Asthma severity: unspecified severity Misael lified Code(s): J45.901 - Unspecified asthma with (acute) exacerbation (2) Allergic rhinitis Allergic rhinitis seasonality: unspecified Allergic rhinitis trigger: other Qualified Code(s): J30.89 - Other allergic rhinitis
[2020-08-07] MEDS: LEVALBUTEROL HCL 1.25 MG/3 ML NEB NEB SCH ×4 (01:01→19:50)
[2020-08-07] MEDS: methylPREDNISolone 40 MG in SYRINGE 0 ML IV SCH ×3 (05:59→21:49)
[2020-08-07] MEDS: FLUTICASONE/VILANTEROL 200/25MCG 14 PUFFS/INHALER INH SCH (08:24)
[2020-08-07] MEDS: guaiFENesin 600 MG TABCR PO SCH ×2 (08:24→20:29)
[2020-08-07] MEDS: HEPARIN SOD 5,000 UNIT/0.5 ML VIAL SQ SCH ×2 (08:24→20:29)
[2020-08-07] MEDS: busPIRone 5 MG TAB PO SCH ×3 (08:24→20:29)
[2020-08-07] MEDS: FLUoxetine HCL 20 MG CAP PO SCH (08:25)
[2020-08-07] MEDS: MULTIVITAMIN TAB PO SCH (08:25)
[2020-08-07] MEDS: ADVANCED PROBIOTIC 1250 MG CAPSULE PO SCH (08:25)
[2020-08-07] MEDS: FAMOTIDINE 20 MG TAB PO SCH ×2 (08:25→20:29)
[2020-08-07] MEDS: ONDANSETRON INJ 2 MG/ML 2 ML VIAL IV PRN ×2 (13:43→22:19)
[2020-08-07] MEDS: ALPRAZolam 0.25 MG TABLET PO PRN (19:09)
[2020-08-07] MEDS: MONTELUKAST SODIUM 10 MG TABLET PO SCH (20:29)
--- NOTE | 2020-08-07 23:15 | Hospitalist Progress Note ---
Date of Service August 07, 2020 Assessment & Plan (1) Acute respiratory failure with hypoxia: 2nd to severe asthma exacerbation. Patient appears to have 2-3 episodes in the past year of oral glucocorticoid. It appears she only takes intermittent doses of her asthma meds. She may beneift from inhaled steroid and LABA. She would like benefit from not being around smokers. er father smokes. Unsure if father is interested in quiting. May provide informtation to daughter so she can show to her father in regards to smoking. NC O2 to keep sats 92% or greater. will continue Steroids. nebs. continue maintanence inhaler: steroid and beta agonist pulmonary toilet. COVID negative. (2) Asthma with exacerbation: Severe exacerbation. Underlying allergies likely playing a role. Occupational exposure to various solvents also likely contributing. Tobacco exposure (father) at home likely worsening her symptoms. Can't rule out viral process. Plan - * 2mg/kg/day of IV solumedrol (40mg IV q8h) * duonebs q4h * mucinex BID * flutter valve * incentive spirometry * defer on antibiotics -- procalcitonin negative, cxr negative for complicating pneumonia * place on telemetry (3) Uncontrolled severe persistent asthma: would consider this mild persistent asthma. As mentioned above numerous triggers are present at home and her workplace. She will need referral to pulmonary and allergy post-d/c for regular asthma care, allergy testing, etc. 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 Start controller agent with fluticasone/vilanterol. Continue singulair. Scheduled nebs. Pulmonary toilet. Patient appears to be improving. (4) Allergic rhinitis: Continue singulair. Consider antihistamine. (5) Occupational exposure to chemicals: see above (6) Anxiety disorder: Cont fluoxetine. Cont buspar. add xanax 0.25mg q8h prn for hospital use only. (7) Leukocytosis: 2nd to IM steroids given at local urgent care yesterday? Procalcitonin negative. no Pneumonia on cxr. afebrile. follow. (8) DVT prophylaxis: heparin 5000 BID Admission and Anticipated Discharge Date Admission Date: August 05, 2020 Subjective Patient reports to be breathing better today. She has no new complaints. She is still wheezing and not back to her baseline Review of Systems Review of Systems: All systems reviewed & are unremarkable except as noted in HPI & below Physical Exam Physical Exam: Constitutional: not obese and no altered mental status Eyes: PERRL ENMT: Mouth: + oropharynx abnormality (cobblestoning posterior wall ) Neck: trachea midline, no thyromegaly Respiratory: Auscultation: + diminished lung sounds (bases ) and + decreased wheezes: mild bilaterally ; no crackles expiratory phase prolonged Cardiovascular: Rate/Rhythm: regular rhythm and + tachycardic Heart Sounds: normal S1 and normal S2; no murmur Vessels: posterior tibial pulses present and dorsalis pedis pulses present; no JVD Extremities: no edema Gastrointestinal (Abdomen): normal bowel sounds, soft, nontender, no hepatosplenomegaly Musculoskeletal: no cyanosis or clubbing, extremities motor strength 5/5 Skin: no rashes, warm and dry Neurologic: moves all extremities; no focal motor deficits Psychiatric: Orientation: alert and oriented x 3 Lymphatic: no cervical lymphadenopathy Results & Data Results & Data ([facility]) Vital Signs (Past 12 Hours) Vital Signs Temp Pulse Pulse Pulse Resp BP BP 08/07/20 23:11 36.9 C 59 L 18 142/77 H 08/07/20 16:30 36.8 C 75 20 142/90 H 08/07/20 16:18 36.9 C 74 20 138/84 08/07/20 16:17 64 08/07/20 13:11 86 18 08/07/20 11:37 36.8 C 68 16 126/77 Pulse Ox 08/07/20 23:11 97 08/07/20 16:30 96 08/07/20 16:18 98 08/07/20 16:17 08/07/20 13:11 95 08/07/20 11:37 98 PG Care Time/CCT Total # of Minutes Spent Total Time Spent with Patient: Total time spent is greater than 50% in coordination of care (as documented) at patient's floor/unit and/or counseling patient: Coding Level of Care Code 81020 Subseq Hosp Care Lvl 3 Diagnoses Acute respiratory failure with hypoxia J96.01 Asthma with exacerbation J45.901 Asthma severity: unspecified severity Asthma persistence: unspecified Uncontrolled severe persistent asthma J45.50 Allergic rhinitis J30.89 Allergic rhinitis trigger: other Allergic rhinitis seasonality: unspecified Occupational exposure to chemicals Z77.098 Anxiety disorder F41.9 Leukocytosis D72.829 DVT prophylaxis Z29.9 (1) Asthma with exacerbation Asthma severity: unspecified severity Asthma persistence: unspecified Qualified Code(s): J45.901 - Unspecified asthma with (acute) exacerbation (2) Allergic rhinitis Allergic rhinitis trigger: other Allergic rhinitis seasonality: unspecified Qualified Code(s): J30.89 - Other allergic rhinitis
[2020-08-08] MEDS: methylPREDNISolone 40 MG in SYRINGE 0 ML IV SCH ×2 (06:22→14:15)
[2020-08-08 07:00] LABS: Hematocrit (blood only) 47.4 % (37-47); Hemoglobin 15.9 g/dL (12.0-16.0); Mean Corpuscular Hemoglobin 31.3 pg (25-34); Mean Corpuscular Hgb Conc 33.5 g/dL (32-36); Mean Corpuscular Volume 93.3 fL (80-100); Mean Platelet Volume 10.9 fL (7.4-10.4); Platelet Count 218 K/uL (130-400); RDW Coefficient of Variation 13.2 % (11.5-14.5); RDW Standard Deviation 45.2 fL (36.4-46.3); Red Blood Count 5.08 M/uL (4.2-5.4); White Blood Count 7.42 K/uL (4.8-10.8)
[2020-08-08] MEDS: LEVALBUTEROL HCL 1.25 MG/3 ML NEB NEB SCH ×4 (07:12→20:23)
[2020-08-08 07:23] LABS: BUN Creatinine Ratio 25.6 (10-20); Creatinine Clr Calc Pharmacy 88.2 ml/min; Est GFR (African American) 117.9; Est GFR (Non-African American) 101.8; Potassium 4.2 mmol/L (3.5-5.1)
[2020-08-08] MEDS: FLUTICASONE/VILANTEROL 200/25MCG 14 PUFFS/INHALER INH SCH (08:13)
[2020-08-08] MEDS: FLUoxetine HCL 20 MG CAP PO SCH (08:13)
[2020-08-08] MEDS: busPIRone 5 MG TAB PO SCH ×3 (08:13→21:04)
[2020-08-08] MEDS: MULTIVITAMIN TAB PO SCH (08:14)
[2020-08-08] MEDS: HEPARIN SOD 5,000 UNIT/0.5 ML VIAL SQ SCH ×2 (08:14→21:06)
[2020-08-08] MEDS: FAMOTIDINE 20 MG TAB PO SCH ×2 (08:14→21:04)
[2020-08-08] MEDS: ADVANCED PROBIOTIC 1250 MG CAPSULE PO SCH (08:14)
[2020-08-08] MEDS: guaiFENesin 600 MG TABCR PO SCH ×2 (08:14→21:04)
[2020-08-08] MEDS: ONDANSETRON INJ 2 MG/ML 2 ML VIAL IV PRN (12:59)
--- NOTE | 2020-08-08 15:05 | Hospitalist Progress Note ---
Date of Service August 08, 2020 Assessment & Plan (1) Asthma with exacerbation: Severe exacerbation. Underlying allergies likely playing a role. Occupational exposure to various solvents also likely contributing. Tobacco exposure (father) at home likely worsening her symptoms. Can't rule out viral process. - Continue: * Prednisone 40 mg daily * Xopenex Q6h * Mucinex BID * Flutter valve & incentive spirometry * Defer on antibiotics - procalcitonin was negative on 08/05 & 08/08. CXR was negative on 08/05. (2) Uncontrolled severe persistent asthma: Would consider this mild persistent asthma. As mentioned above numerous triggers are present at home and her workplace. - She will need referral to pulmonary and allergy post-d/c for regular asthma care, allergy testing, etc. - Occupational exposure will be challenging to eliminate - she will need to mask, speak with her [employer] officer, etc. - Start controller agent with fluticasone/vilanterol. - Continue Singulair. (3) Allergic rhinitis: - Continue Singulair. - Consider antihistamine. (4) Occupational exposure to chemicals: See above (5) Anxiety disorder: No anxiety noted in interview today. - Continue fluoxetine & buspirone - Added Xanax PRN for hospital use only. (6) DVT prophylaxis: Heparin 5,000 units SQ Q12h Admission and Anticipated Discharge Date Admission Date: August 05, 2020 Subjective Feeling better today. Still with shortness of breath and wheezing, but improved. Reports no fevers/chills, chest pain, abdominal pain, nausea, or vomiting. Physical Exam Constitutional: WD/WN, vitals as above Eyes: EOM intact bilaterally; no conjunctival abnormality ENMT: external ear and nose normal, oropharynx normal Neck: trachea midline, no thyromegaly normal visual inspection Respiratory: no respiratory distress Auscultation: + wheezes Cardiovascular: RRR, no murmur, no edema Gastrointestinal (Abdomen): Inspection/Auscultation: abdomen normal to inspection; abdomen not distended Musculoskeletal: no cyanosis or clubbing, extremities motor strength 5/5 Skin: no rashes, warm and dry Neurologic: moves all extremities and awake Psychiatric: Orientation: alert, oriented to person and cooperative Results & Data Results & Data ([facility]) Vital Signs (Past 12 Hours) Vital Signs Temp Pulse Pulse Resp BP Pulse Ox 08/08/20 14:26 67 18 95 08/08/20 11:37 36.8 C 75 18 149/90 H 95 08/08/20 10:39 58 L 08/08/20 08:04 36.8 C 65 16 150/89 H 97 08/08/20 07:13 91 H 16 97 08/08/20 03:00 36.7 C 76 18 132/77 96 PG Care Time/CCT Total # of Minutes Spent Total Time Spent with Patient: Total time spent is greater than 50% in coordination of care (as documented) at patient's floor/unit and/or counseling patient: Coding Level of Care Code 26124 Subseq Hosp Care Lvl 2 Diagnoses Asthma with exacerbation J45.901 Asthma severity: unspecified severity Asthma persistence: unspecified Uncontrolled severe persistent asthma J45.50 Allergic rhinitis J30.89 Allergic rhinitis trigger: other Allergic rhinitis seasonality: unspecified Occupational exposure to chemicals Z77.098 Anxiety disorder F41.9 DVT prophylaxis Z29.9 (1) Asthma with exacerbation Asthma severity: unspecified severity Asthma persistence: unspecified Qualified Code(s): J45.901 - Unspecified asthma with (acute) exacerbation (2) Allergic rhinitis Allergic rhinitis trigger: other Allergic rhinitis seasonality: unspecified Qualified Code(s): J30.89 - Other allergic rhinitis
[2020-08-08] MEDS ORDERED: ONDANSETRON INJ 2 MG/ML 2 ML VIAL IV STA (16:41)
[2020-08-08] MEDS ORDERED: Nursing to Pharmacy Communication SCH (16:45)
[2020-08-08] MEDS: MONTELUKAST SODIUM 10 MG TABLET PO SCH (21:04)
[2020-08-08] MEDS: ALPRAZolam 0.25 MG TABLET PO PRN (21:17)
[2020-08-09] MEDS: LEVALBUTEROL HCL 1.25 MG/3 ML NEB NEB SCH ×2 (00:55→07:14)
[2020-08-09] MEDS ORDERED: predniSONE 50 MG TAB PO SCH (09:00)
[2020-08-09] MEDS: FLUTICASONE/VILANTEROL 200/25MCG 14 PUFFS/INHALER INH SCH (09:17)
[2020-08-09] MEDS: ADVANCED PROBIOTIC 1250 MG CAPSULE PO SCH (09:18)
[2020-08-09] MEDS: FLUoxetine HCL 20 MG CAP PO SCH (09:18)
[2020-08-09] MEDS: busPIRone 5 MG TAB PO SCH (09:19)
[2020-08-09] MEDS: guaiFENesin 600 MG TABCR PO SCH (09:19)
[2020-08-09] MEDS: MULTIVITAMIN TAB PO SCH (09:19)
[2020-08-09] MEDS: FAMOTIDINE 20 MG TAB PO SCH (09:20)
[2020-08-09] MEDS: HEPARIN SOD 5,000 UNIT/0.5 ML VIAL SQ SCH (09:20)
--- NOTE | 2020-08-09 16:03 | Discharge Summary ---
Date of Service August 09, 2020 Admission HPI Per Admitting Provider 24yo female with history of asthma dating back to age 3 and allergic rhinitis presents with cough productive of yellow sputum and increasing shortness of breathing with wheezing. Has been ill with asthma symptoms for about 1 month, but much worse in the last 2-3 days. No fevers or chills. No obvious COVID exposures or travel. Saw a local urgent care yesterday for the same symptoms - given IM steroids and sent home on PO steroids but never started the latter. Has been using albuterol on a daily basis since a visit for her asthma in our ER in 06/2020. Records show she received a short prednisone course at that time. Has nocturnal cough which prompts her to use the albuterol at night, but also uses albuterol frequently during the day time. Records also show another ER visit in January 2020 for her asthma. She does not smoke, but her father smokes cigarettes. She states he does so outside the home. The family does have a dog. Principal Diagnosis Asthma exacerbation Discharge Exam Constitutional WD/WN, vitals as above Eyes EOM intact bilaterally; no conjunctival abnormality ENMT external ear and nose normal, oropharynx normal Neck trachea midline, no thyromegaly normal visual inspection Respiratory no respiratory distress Auscultation: + wheezes Cardiovascular RRR, no murmur, no edema Gastrointestinal (Abdomen) Inspection/Auscultation: abdomen normal to inspection; abdomen not distended Musculoskeletal no cyanosis or clubbing, extremities motor strength 5/5 Skin no rashes, warm and dry Neurologic moves all extremities and awake Psychiatric Orientation: alert, oriented to person and cooperative Discharge Data Allergies Allergy/AdvReac Type Severity Reaction Status Date / Time CATS,DOGS,DUST Allergy Unknown HIVES Uncoded 07/05/20 13:45 Consultations 08/05/20 10:12 ED Decision to Admit Stat Hospital Course (1) Asthma with exacerbation: Severe exacerbation. Underlying allergies likely playing a role. Occupational exposure to various solvents also likely contributing. Tobacco exposure (father) at home likely worsening her symptoms. Can't rule out viral process. - Continue: * Prednisone 40 mg daily taper on discharge. * Xopenex Q6h * Mucinex BID * Flutter valve & incentive spirometry * Defer on antibiotics - procalcitonin was negative on 08/05 & 08/08. CXR was negative on 08/05. Long discussion with patient regarding asthma therapy. First, she needs to be on a maintenance inhaler. Discussed multiple times that this is to be used every day and is NOT a rescue medication. Also discussed reducing triggers such as cigarette smoke, candles in the home, and work-place exposure to solder and solvents. She was given 2 N95s to use and asked to discuss further prevention with her work. - Will follow up with pulmonary and allergy. (2) Uncontrolled severe persistent asthma: Would consider this mild persistent asthma. As mentioned above numerous triggers are present at home and her workplace. - She will need referral to pulmonary and allergy post-d/c for regular asthma care, allergy testing, etc. - Occupational exposure will be challenging to eliminate - she will need to mask, speak with her [employer]SHA officer, etc. - Start controller agent with fluticasone/vilanterol. - Continue Singulair. (3) Allergic rhinitis: - Continue Singulair. - Consider antihistamine. (4) Occupational exposure to chemicals: See above (5) Anxiety disorder: No anxiety noted in interview today. - Continue fluoxetine & buspirone - Added Xanax PRN for hospital use only. (6) DVT prophylaxis: Heparin 5,000 units SQ Q12h Total Time Total Time Spent Total Time Spent (In Minutes): 35 Discharge Plan Discharge Items Patient Disposition: Home - Self-Care Reason For Visit: ACUTE HYPOXIC RESP FAILURE,2ND ASTHMA EXACERBATION Discharge Diagnosis: Asthma exacerbation Activity: Resume your previous activity Non-emergency contact: Primary Care Provider and Senior Reliability Engineer Call non-emergency contact if: your symptoms worsen Follow-up/Referrals: Zenon Roger MD [Physician] - (Please see Dr. Roger in the next week or two to get established with pulmonology and to be sure your asthma symptoms are improving. Dr. Roger's office will contact patient to schedule appointment.) Kat Orta CRNP [Primary Care Provider] - 08/13/20 2:50 pm Jacki Mcgovern MD [Physician] - 08/21/20 11:15 am (Please see Dr. Mcgovern in the next month or so for allergy testing.) Diet: Regular Addtl Attending Provider Instructions: You were admitted to the hospital with an asthma exacerbation. This has been occurring more frequently, possibly due to many possible reasons. I think that your solvents at work, home candles, father's smoking, and outdoor allergens are all playing a role. I would like you to start taking a daily maintenance inhaler. This is called Breo and is used once a day EVERY DAY. It is meant to make every day a little better. It is NOT a rescue inhaler, so if you are short of breath, you will still need to use your albuterol inhaler or Xopenex nebulizer. Please talk with your work about wearing an N95 mask. This is a mask that helps filter out more particles and should more effectively block the solvent from getting to your lungs and causing inflammation. Additionally, burning the candles less in your room, and staying away from any second-hand smoke will all also be important. There are also masks that are certified as "KN95." This is a [place] standard and are presently authorized by the FDA during the pandemic. You will have to use your best judgement when looking for N95 or KN95 masks because there are lots out there right now that seem to be coming from less reputable sites. Please talk with your work first. They should have a reputable supplier and be willing to accommodate a reason request to protect your lungs and health while at work. Finally, there are PAPR machines that are available online. These machines filter the air with an electronic system; however, they are quite expensive. Pending Studies at Discharge: No Stand-Alone Forms: My [facility], Work/School Release (Inpt), Smoking Cessation Medications and DC Order Prescriptions: New levalbuterol HCl 1.25 mg/3 mL Solution For Nebulization 1.25 mg NEB Q6R PRN (Reason: shortness of breath or wheezing) Qty: 90 RF: 0 Breo Ellipta 200-25 mcg/dose Blister With Device 1 ea inhalation DAILY Qty: 28 RF: 0 prednisone 20 mg tablet 20 mg PO DAILY Qty: 11 RF: 0 Continued buspirone 10 mg tablet 10 mg PO BID RF: 0 multivitamin Tablet 1 tab PO QAM RF: 0 montelukast 10 mg tablet 10 mg PO HS RF: 0 Probiotic 15 billion cell Capsule 1 cap PO DAILY RF: 0 fluoxetine 40 mg capsule 40 mg PO QAM RF: 0 albuterol sulfate 90 mcg/actuation HFA aerosol inhaler 2 puffs INH Q4H PRN (Reason: shortness of breath or wheezing) Qty: 8 RF: 0 Discontinued albuterol sulfate 2.5 mg /3 mL (0.083 %) solution for nebulization 2.5 mg inhalation UD RF: 0 Discharge Orders: Discharge Order (Routine); Ordered 08/09/20 Ordered By: Lane Purvis Admission Data Admit Date/Time: 08/05/20 11:16 Attending Provider: Lane Purvis Admit Provider: Herminio Nieves Primary Care Provider: Kat Orta Other Providers: Herminio Nieves Other Interventions: Discharge Summary Assessment (RN) Last Done: 08/09/20 09:23 Coding Level of Care Code D/C Day Management >30 mins Diagnoses Asthma with exacerbation J45.901 Asthma severity: unspecified severity Asthma persistence: unspecified Uncontrolled severe persistent asthma J45.50 Allergic rhinitis J30.89 Allergic rhinitis trigger: other Allergic rhinitis seasonality: unspecified Occupational exposure to chemicals Z77.098 Anxiety disorder F41.9 DVT prophylaxis Z29.9
== END 2020-08-09 09:51 | disposition home or self-care (01) | DRG 202 ==
LOC: ED 07:39 → SUATTDRO 11:16 → 2N 11:16

== ENCOUNTER 2021-11-18 14:45 | Inpatient (IN) ==
[2021-11-18] MEDS ORDERED: ALBUT/IPRATROP 3MG/0.5MG NEB 3 ML VIAL ONE (15:02)
[2021-11-18] MEDS ORDERED: ALBUT/IPRATROP 3MG/0.5MG NEB 3 ML VIAL INH STA (15:04)
[2021-11-18] MEDS ORDERED: LORazepam 0.5 MG TAB ONE (15:08)
--- NOTE | 2021-11-18 15:18 | Emergency Department Note ---
History of Present Illness General Chief complaint: Asthma Stated complaint: ASTHMA ATTACK Time Seen by Provider: 11/18/21 15:05 History of Present Illness This is a 26-year-old female that presents to the emergency department via private vehicle accompanied by mother with complaints of "asthma attack". The patient has a history of asthma which was diagnosed at age 3. Patient notes that this past Wednesday while at work a coworker accidentally spilled De-limer which was a liquid. She states that she was helping clean this up. She was wearing gloves. Shortly thereafter she began with an asthma exacerbation. She was seen here and evaluated. She was discharged home and doing well. Then today around 2 PM she notes return of symptoms. This was associated with wheezing and shortness of breath. She has tried her rescue inhaler without relief. She feels increasingly anxious now noting the rescue inhaler use. She is requesting something for her anxiety as well as to help her breathe. Patient denies any chest pain. No fevers or chills. Patient denies chance of . Mother at bedside does much of the talking as the patient is conversationally dyspneic. Patient is answering with her hands and in 1-2 word sentences. Home Medications Medication Instructions Recorded Confirmed Type multivitamin 1 tab PO QAM 08/05/20 11/18/21 History montelukast 10 mg tablet 10 mg PO HS #90 tab 08/25/21 11/18/21 Rx levalbuterol HCl 1.25 mg/3 mL 1.25 mg INHALATION Q4H PRN #75 ml 09/16/21 11/18/21 Rx solution for nebulization duloxetine 20 mg capsule,delayed 20 mg PO DAILY cap 10/23/21 11/18/21 History release (Cymbalta) lorazepam 0.5 mg tablet (Ativan) 0.5 mg PO DAILY PRN #30 tab 10/23/21 11/18/21 Rx albuterol sulfate 90 mcg/actuation 2 inh INH Q4H PRN #8 gm 10/28/21 11/18/21 Rx aerosol inhaler Allergies Allergy/AdvReac Type Severity Reaction Status Date / Time CATS,DOGS,DUST Allergy Unknown HIVES Uncoded 11/18/21 16:55 Past Med/Surg History Medical History Allergic rhinitis Allergic rhinitis Anxiety disorder Asthma Depression Idiopathic scoliosis Peripheral eosinophilia Surgical History H/O wisdom tooth extraction Family History Father Dyslipidemia Myxoma of heart Tobacco dependency Other Cancer Diabetes Heart disease Lung disease Denies family history of Asthma Social History Smoking Status: Never smoker Tobacco Type: Cigarettes Years Smoked: 1; Cigarettes Per Day: 2; Number of Years Since Quit: 2; Second Hand Exposure: No; Hx Alcohol Use: No Hx Substance Use: No Preferred Language: Israeli Communication Ability: Effective Hearing Ability: Normal Machine Deburrer Required: No Beliefs That Will Affect Care: None marital status: Single Current Living Situation: Significant Other Current Living Situation Comment: Lives with boyfriend current occupational status: employed current occupation: [employer] How many Children do You have: 0 Feels Safe at Home: Yes Childhood Exposure to Second-Hand Smoke: Yes caffeine: Yes Dental Care, Regularly: Yes Physical Activity Frequency: Daily Seatbelt Use: sometimes Sunscreen Use: Yes Assistive Devices: None Review of Systems A total of 10 systems reviewed and were otherwise negative Physical Exam Vital Signs Vital Signs - 24 hr 11/18/21 15:00 11/18/21 15:06 11/18/21 15:48 Temperature 36.3 C L Temperature Source Oral Pulse Rate 139 H 132 H 126 H Pulse Rate [Apical] 111 H Pulse Rhythm Regular Regular Respiratory Rate 26 H 26 H 20 Respiratory Effort / Characteristics Short of Breath Blood Pressure 171/100 H Blood Pressure [Right Arm] Blood Pressure Mean 123 Blood Pressure Mean [Right Arm] Blood Pressure Position Sitting Pulse Oximetry 89 L 98 Oxygen Delivery Method Other Nasal Cannula Oxygen Flow Rate 10 6 Sepsis Recent Fever Within 48 Hours No Sepsis New/Unexplained Change in Mental Status No Sepsis Action Taken by Nursing No Action Required 11/18/21 15:52 11/18/21 17:00 Temperature Temperature Source Pulse Rate Pulse Rate [Apical] 113 H 90 Pulse Rhythm Respiratory Rate 16 24 Respiratory Effort / Characteristics Spontaneous Blood Pressure Blood Pressure [Right Arm] 143/78 H Blood Pressure Mean Blood Pressure Mean [Right Arm] 99 Blood Pressure Position Pulse Oximetry 97 99 Oxygen Delivery Method Nasal Cannula Nasal Cannula Oxygen Flow Rate 5 3 Sepsis Recent Fever Within 48 Hours Sepsis New/Unexplained Change in Mental Status Sepsis Action Taken by Nursing VITAL SIGNS - Vital signs and nursing notes were reviewed. Tachycardic, hypoxic GENERAL - 26-year-old female appearing her stated age who is in no acute distress. Patient is conversationally dyspneic. SKIN - Without rashes. No meningeal or petechial rash HEAD - NC/AT. EYES - PERRL with EOMI bilaterally. EARS - No deformities of external structures noted on gross examination bilaterally. NOSE - Midline and without cyanosis. No epistaxis or purulent drainage noted. MOUTH/OROPHARYNX - Without perioral cyanosis. Buccal mucosa pink and moist and without leukoplakia. Tongue midline with equal elevation of palate bilaterally. No tonsillar hypertrophy, erythema, or exudates noted. Good dentition noted. No drooling, stridor, trismus or tripoding NECK - Neck with FROM. LUNGS -diffuse expiratory and inspiratory wheeze noted bilaterally. Decreased breath sounds noted bilaterally. Patient currently using DuoNeb. CARDIAC - RRR with S1/S2. No murmur, rubs, or gallops appreciated. EXTREMITIES - No clubbing or peripheral cyanosis. NEUROLOGIC - Cranial nerves II through XII grossly intact. Sensory intact to light touch throughout. PSYCH - A&O, and cooperates fully with examiner. Pt is very pleasant and interacts well with examiner. Course Administered Medications Discontinued Medications Albuterol (Albut/Ipratrop 3mg/0.5mg Neb 3 Ml Vial) Confirm Administered Dose 3 ml .ROUTE .STK-MED ONE Stop: 11/18/21 15:03 Last Admin: 11/18/21 15:04 Dose: 3 ml Documented by: [id number] Albuterol (Albut/Ipratrop 3mg/0.5mg Neb 3 Ml Vial) 3 ml INH NOW STA Stop: 11/18/21 15:05 Last Admin: 11/18/21 15:05 Dose: Not Given Documented by: [id number] Albuterol (Albut/Ipratrop 3mg/0.5mg Neb 3 Ml Vial) 12 ml NEB ONE ONE; Protocol Stop: 11/18/21 15:35 Last Admin: 11/18/21 15:51 Dose: 12 ml Documented by: [id number] Lorazepam (Lorazepam 0.5 Mg Tab) Confirm Administered Dose 0.5 mg .ROUTE .STK- MED ONE Stop: 11/18/21 15:09 Last Admin: 11/18/21 15:11 Dose: 0.5 mg Documented by: [id number] Methylprednisolone (Methylprednisolone 125 Mg/2 Ml Vial) 60 mg IV NOW STA Stop: 11/18/21 15:54 Last Admin: 11/18/21 16:15 Dose: 60 mg Documented by: [id number] Medical Decision Making Laboratory Data Result diagrams: 11/18/21 15:30 11/18/21 15:30 Lab Results 11/18/21 11/18/21 11/18/21 Range/Units 15:30 15:30 15:30 WBC 10.02 (4.8-10.8) K/uL RBC 4.81 (4.2-5.4) M/uL Hgb 15.3 (12.0-16.0) g/dL Hct 44.6 (37-47) % MCV 92.7 (80-100) fL MCH 31.8 (25-34) pg MCHC 34.3 (32-36) g/dL RDW Std Deviation 44.3 (36.4-46.3) fL RDW Coeff of Noé 13.0 (11.5-14.5) % Plt Count 331 (130-400) K/uL MPV 10.7 H (7.4-10.4) fL Immature Gran % (Auto) 0.3 % Neut % (Auto) 44.7 % Lymph % (Auto) 29.0 % [place] % (Auto) 9.0 % Eos % (Auto) 16.4 % Baso % (Auto) 0.6 % Neut # (Auto) 4.48 (1.4-6.5) K/uL Lymph # (Auto) 2.91 (1.2-3.4) K/uL [place] # (Auto) 0.90 H (0.11-0.59) K/uL Eos # (Auto) 1.64 H (0-0.5) K/uL Baso # (Auto) 0.06 (0-0.2) K/uL Immature Gran # (Auto) 0.03 H (0.00-0.02) K/uL VBG pH (7.36-7.41) VBG pCO2 (38-50) mmHg VBG pO2 mmHg VBG HCO3 mmol/L VBG O2 Saturation % VBG Base Excess mEq/L Barometric Pressure mm/Hg Sodium 137 (136-145) mmol/L Potassium 4.0 (3.5-5.1) mmol/L Chloride 106 (98-107) mmol/L Carbon Dioxide 22 (21-32) mmol/L Anion Gap 9 (3-11) BUN 14 (6-23) mg/dl Creatinine 0.97 (0.6-1.2) mg/dl Est Cr Clr Drug Dosing Not Reportable Est GFR ( Amer) 92.1 ml/min Est GFR (Non-Af Amer) 79.5 ml/min BUN/Creatinine Ratio 14.4 (10-20) Glucose 119 H (70-99(Fasting)) mg/dl Calcium 9.3 (8.5-10.1) mg/dl Magnesium 2.1 (1.7-2.4) mg/dl Total Bilirubin 0.6 (0.2-1.0) mg/dl AST 21 (13-39) U/L ALT 14 (7-52) U/L Alkaline Phosphatase 35 (34-104) U/L Troponin I < 0.03 (0-0.04) ng/ml Total Protein 7.2 (6.0-8.3) gm/dl Albumin 4.7 (3.4-5.0) gm/dl Globulin 2.5 (2.5-4.0) gm/dl Albumin/Globulin Ratio 1.9 (0.9-2) TSH 1.977 (0.300-4.500) uIu/ml HCG, Qual (Negative) SARS-CoV-2, RNA, NAAT (NEGATIVE) 11/18/21 11/18/21 11/18/21 Range/Units 15:30 15:49 16:12 WBC (4.8-10.8) K/uL RBC (4.2-5.4) M/uL Hgb (12.0-16.0) g/dL Hct (37-47) % MCV (80-100) fL MCH (25-34) pg MCHC (32-36) g/dL RDW Std Deviation (36.4-46.3) fL RDW Coeff of Noé (11.5-14.5) % Plt Count (130-400) K/uL MPV (7.4-10.4) fL Immature Gran % (Auto) % Neut % (Auto) % Lymph % (Auto) % [place] % (Auto) % Eos % (Auto) % Baso % (Auto) % Neut # (Auto) (1.4-6.5) K/uL Lymph # (Auto) (1.2-3.4) K/uL [place] # (Auto) (0.11-0.59) K/uL Eos # (Auto) (0-0.5) K/uL Baso # (Auto) (0-0.2) K/uL Immature Gran # (Auto) (0.00-0.02) K/uL VBG pH 7.35 L (7.36-7.41) VBG pCO2 46 (38-50) mmHg VBG pO2 42 mmHg VBG HCO3 25 mmol/L VBG O2 Saturation 74.0 % VBG Base Excess -0.9 mEq/L Barometric Pressure 733.1 mm/Hg Sodium (136-145) mmol/L Potassium (3.5-5.1) mmol/L Chloride (98-107) mmol/L Carbon Dioxide (21-32) mmol/L Anion Gap (3-11) BUN (6-23) mg/dl Creatinine (0.6-1.2) mg/dl Est Cr Clr Drug Dosing Est GFR ( Amer) ml/min Est GFR (Non-Af Amer) ml/min BUN/Creatinine Ratio (10-20) Glucose (70-99(Fasting)) mg/dl Calcium (8.5-10.1) mg/dl Magnesium (1.7-2.4) mg/dl Total Bilirubin (0.2-1.0) mg/dl AST (13-39) U/L ALT (7-52) U/L Alkaline Phosphatase (34-104) U/L Troponin I (0-0.04) ng/ml Total Protein (6.0-8.3) gm/dl Albumin (3.4-5.0) gm/dl Globulin (2.5-4.0) gm/dl Albumin/Globulin Ratio (0.9-2) TSH (0.300-4.500) uIu/ml HCG, Qual Negative (Negative) SARS-CoV-2, RNA, NAAT NEGATIVE (NEGATIVE) Imaging Data Radiologist's Impression: Chest X-Ray 03/15/22 15:04 SINGLE VIEW CHEST CLINICAL HISTORY: Dyspnea FINDINGS: An AP, portable, upright chest radiograph is compared to study dated 11/11/2021. The cardiomediastinal silhouette is unremarkable. The lungs and pleural spaces are clear. No pneumothorax is seen. The bony thorax is grossly intact. There is mild thoracic scoliosis. Bilateral nipple piercings are noted. IMPRESSION: No active disease in the chest. ACT 112: Negative or not required by law. Electronically signed by: Eddie Calvillo M.D. 11/18/2021 4:04 PM MDM Narrative Patient was seen and evaluated as above in room D08 and then formally in room C04. Review was performed of nursing notes and vital signs. I did review pertinent previous visits and patient history. After obtaining a thorough history and physical examination the above work up was performed. Patient presents to us today with a history of asthma and feels as though she is experiencing an asthma exacerbation. Clinically I would agree with this. She has wheezing diffusely. She is conversationally dyspneic. Audible wheezing appreciated in the room. She is hypoxic. She is tachycardic after using her albuterol rescue inhaler. Patient was seen during a period of high volume and acuity. Patient already had undergone DuoNeb breathing treatment per nursing protocol. Patient notes a history of asthma and states this feels identical to previous exacerbations. She has been hospitalized for this before but never intubated. Options of care were discussed with the patient. Despite the 3 mL DuoNeb treat ment the patient was still feeling very short of breath. She still had wheezing. She was still requiring oxygen. An hour-long DuoNeb was felt to be warranted. It is felt that the benefit outweighs the risk at the present time. Patient was then reevaluated by undergoing the hour-long DuoNeb with much improvement. She was feeling less anxious. The wheezing was beginning to improve. She was able to speak in full sentences. I do believe that inpatient management is warranted noting the patient's hypoxia, wheezing, and persistence of wheezing despite initial DuoNeb and rescue inhaler use. An EKG was also performed on the patient while she was here that revealed sinus tachycardia at a rate of [address] elevation. There is some underlying baseline artifact expected given the scenario. Do not suspect ACS. Chest x-ray negative for acute process. As the patient was finishing her hour-long DuoNeb she was feeling much better. Heart rate was improving. She still had some mild wheeze.I do think proceeding with inpatient management is reasonable. Patient happy and amenable to plan of care. I discussed this with the case management team and the hospitalist was consulted. Please refer to further documentation regarding her stay. Do not suspect ACS, PE, dissection or other emergent process beyond that of asthma exacerbation. Patient noted that she did have s ome mild discomfort in the ribs with her increased work of breathing earlier and was ordered some p.o. acetaminophen. Do not suspect PE. Case was discussed with the attending physician. An order was placed for continuous cardiac monitoring. The monitor shows a rate of 118 with sinus tachycardia. Indication was asthma exacerbation with dyspnea requiring oxygen. I attest that I have personally reviewed the patient medication list. GCS: 15 In the evaluation and treatment of this patient the following differential diagnoses were entertained: ACS, [place], PE, pericarditis, pneumothorax, COVID-19, asthma exacerbation, among others Impression & Plan Asthma with exacerbation, Hypoxia Discharge Plan Visit Data Chief Complaint: Asthma Stated Complaint: ASTHMA ATTACK ED Provider: Shailesh Santiago ED Midlevel Provider: Chinedu Elizabeth Discharge Problem: Asthma with exacerbation, Hypoxia Patient Disposition: Admitted As Inpatient Condition: Good Forms Stand Alone Forms: My [facility] Care-n-Share Prescriptions Prescriptions: No Action montelukast 10 mg tablet 10 mg PO HS Qty: 90 RF: 1 levalbuterol HCl 1.25 mg/3 mL solution for nebulization 1.25 mg inhalation Q4H PRN (Reason: shortness of breath or wheezing) Qty: 75 RF: 0 lorazepam [Ativan] 0.5 mg tablet 0.5 mg PO DAILY PRN (Reason: anxiety) Qty: 30 RF: 0 albuterol sulfate 90 mcg/actuation HFA aerosol inhaler 2 inh INH Q4H PRN (Reason: shortness of breath or wheezing) Qty: 8 RF: 4 duloxetine [Cymbalta] 20 mg capsule,delayed release(DR/EC) 20 mg PO DAILY RF: 0 multivitamin Tablet 1 tab PO QAM RF: 0 Referrals Referrals: Mallika Galan MD [Primary Care Provider] -
[2021-11-18] MEDS ORDERED: ALBUT/IPRATROP 3MG/0.5MG NEB 3 ML VIAL NEB ONE (15:34)
[2021-11-18] MEDS ORDERED: methylPREDNISolone 125 MG/2 ML VIAL IV STA (15:53)
[2021-11-18 16:01] LABS: Base Excess VBG -0.9 mEq/L; pH VBG 7.35 (7.36-7.41)
--- NOTE | 2021-11-18 16:06 | XRay Report ---
SINGLE VIEW CHEST CLINICAL HISTORY: Dyspnea FINDINGS: An AP, portable, upright chest radiograph is compared to study dated 11/11/2021. The cardiome diastinal silhouette is unremarkable. The lungs and pleural spaces are clear. No pneumothorax is seen . The bony thorax is grossly intact. There is mild thoracic scoliosis. Bilateral nipple piercings are noted. IMPRESSION: No active disease in the chest. ACT 112: Negative or not required by law. Electronically signed by: Eddie Calvillo M.D. 11/18/2021 4:04 PM
[2021-11-18 16:21] LABS: Basophils # (auto) 0.06 K/uL (0-0.2); Basophils % (auto) 0.6 %; Eosinophils # (auto) 1.64 K/uL (0-0.5); Eosinophils % (auto) 16.4 %; Hematocrit (blood only) 44.6 % (37-47); Hemoglobin 15.3 g/dL (12.0-16.0); Immature Granulocytes # (auto) 0.03 K/uL (0.00-0.02); Immature Granulocytes % (auto) 0.3 %; Lymphocytes # (auto) 2.91 K/uL (1.2-3.4); Mean Corpuscular Hemoglobin 31.8 pg (25-34); Mean Corpuscular Hgb Conc 34.3 g/dL (32-36); Mean Corpuscular Volume 92.7 fL (80-100); Mean Platelet Volume 10.7 fL (7.4-10.4); Neutrophils # (auto) 4.48 K/uL (1.4-6.5); Neutrophils % (auto) 44.7 %; Platelet Count 331 K/uL (130-400); RDW Standard Deviation 44.3 fL (36.4-46.3); Red Blood Count 4.81 M/uL (4.2-5.4); White Blood Count 10.02 K/uL (4.8-10.8)
[2021-11-18 16:43] LABS: Troponin I < 0.03 ng/ml (0-0.04)
[2021-11-18 16:45] LABS: Alanine Aminotransferase 14 U/L (7-52); Albumin Globulin Ratio 1.9 (0.9-2); Albumin Level 4.7 gm/dl (3.4-5.0); Alkaline Phosphatase 35 U/L (34-104); Anion Gap 9 (3-11); Aspartate Aminotransferase 21 U/L (13-39); BUN Creatinine Ratio 14.4 (10-20); Bilirubin,Total 0.6 mg/dl (0.2-1.0); Blood Urea Nitrogen 14 mg/dl (6-23); Calcium 9.3 mg/dl (8.5-10.1); Carbon Dioxide 22 mmol/L (21-32); Chloride 106 mmol/L (98-107); Est GFR (African American) 92.1 ml/min; Est GFR (Non-African American) 79.5 ml/min; Globulin 2.5 gm/dl (2.5-4.0); Glucose 119 mg/dl (70-99(Fasting)); Magnesium 2.1 mg/dl (1.7-2.4); Sodium 137 mmol/L (136-145); Total Protein 7.2 gm/dl (6.0-8.3)
[2021-11-18 16:48] LABS: Pregnancy Test, Serum Negative (Negative)
[2021-11-18] MEDS ORDERED: ACETAMINOPHEN 325 MG TAB PO STA (17:59)
--- NOTE | 2021-11-18 18:46 | Billing Data ---
Date of Service November 18, 2021 Coding Level of Care Code INT OBSERVATION CARE 70M LVL 3
--- NOTE | 2021-11-18 19:13 | History & Physical Report ---
Date of Service November 18, 2021 Assessment & Plan (1) Asthma exacerbation: Plan: Patient is a 26-year-old female with past medical history of anxiety and asthma presenting to the hospital for treatment for asthma exacerbation. Patient has received DuoNeb treatment x2 and is currently stable. Patient is being admitted to the hospital overnight for observation and additional DuoNeb treatment as needed. Asthma exacerbation -Admit to hospital under observation under the care of Dr. Worrell -DuoNeb therapy every 2 hours as needed for wheezing/shortness of breath -Start prednisone 60 mg p.o. daily with plan to send her home with steroids -Discussed long-term maintenance therapy in morning, consider something more affordable such as fluticasone -Continue home montelukast Anxiety disorder -Continue home duloxetine and Ativan CODE STATUS: Full code Disposition: MedSurg with telemetry Diet: Regular diet DVT prophylaxis: None (2) Anxiety disorder: History of Present Illness Chief Complaint: Asthma exacerbation Primary Care Provider: Mallika Galan MD Patient is a 26-year-old female with past medical history of asthma and anxiety presenting to the hospital for the chief complaint of asthma exacerbation. 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 While she was there she was cleaning with a cleaning agent that required mixing in water. When it was mixed in the water it seemed to aerosolized which had irritated her airway and was the start of her most recent exacerbation. She had gone to the emergency room shortly after and at that time she was given a DuoNeb treatment as well as IV steroids. Her breathing had improved and she was sent home with a steroid burst pack for which she was instructed not to take if she was feeling better, so she did not take this medication. She had gone a couple of days without any complaints, however, when she had woken up this morning she had felt that she was a little short of breath with chest tightness. She did eventually go to work and while at work she did have worsening of her shortness of breath and began audibly wheezing which did not improve with her inhaler. When she came into the ED she was given a DuoNeb treatment which she initially responded well, when the DuoNeb treatment was discontinued her exacerbation returned and she began having shortness of breath once again. She was then started on hour-long DuoNeb course. At this point a shared decision-making was done with the emergency medicine provider who deemed that the best course of action at this time was be admitted to the hospital for further observation and treatment. At the time of visiting the patient in the ED, her breathing had improved significantly and she felt that she was comfortable at this time. She was on 3 L of oxygen nasal cannula but when I removed the oxygen her saturation remained above 95%, however, oxygen was replaced before leaving interview. Patient has been utilizing her levalbuterol inhaler approximately 6 times a day between exacerbations. She used to be on Breo Ellipta for maintenance therapy starting in the beginning of 2020 but she was only able to fill it for 4 months as it would cost her $400 a month and she could no longer afford it. In the ED patient did have a VBG, x-ray, CBC, BMP, TSH, troponin, test, and Covid test. All of these tests were ultimately negative except for chest x-ray which did show hyperinflation. Patient is COVID vaccinated without booster. Patient is a full code. Allergies Allergy/AdvReac Type Severity Reaction Status Date / Time CATS,DOGS,DUST Allergy Unknown HIVES Uncoded 11/18/21 16:55 Home Medications Medication Instructions Recorded Confirmed Type multivitamin 1 tab PO QAM 08/05/20 11/18/21 History montelukast 10 mg tablet 10 mg PO HS #90 tab 08/25/21 11/18/21 Rx levalbuterol HCl 1.25 mg/3 mL 1.25 mg INHALATION Q4H PRN #75 ml 09/16/21 11/18/21 Rx solution for nebulization duloxetine 20 mg capsule,delayed 20 mg PO DAILY cap 10/23/21 11/18/21 History release (Cymbalta) lorazepam 0.5 mg tablet (Ativan) 0.5 mg PO DAILY PRN #30 tab 10/23/21 11/18/21 Rx albuterol sulfate 90 mcg/actuation 2 inh INH Q4H PRN #8 gm 10/28/21 11/18/21 Rx aerosol inhaler fluticasone 250 mcg-salmeterol 50 1 inh INHALATION BID #60 ea 11/19/21 Rx mcg/dose blistr powdr for inhalation (Advair Diskus) prednisone 20 mg tablet 60 mg PO DAILY 5 Days #15 tab 11/19/21 Rx Past Med/Surg History Medical History Allergic rhinitis Allergic rhinitis Anxiety disorder Asthma Depression Idiopathic scoliosis Peripheral eosinophilia Surgical History H/O wisdom tooth extraction Family History Father Dyslipidemia Myxoma of heart Tobacco dependency Other Cancer Diabetes Heart disease Lung disease Denies family history of Asthma Social History Smoking Status: Never smoker Tobacco Type: Cigarettes Years Smoked: 1; Cigarettes Per Day: 2; Number of Years Since Quit: 2; Second Hand Exposure: No; Hx Alcohol Use: No Hx Substance Use: Yes Preferred Language: Emirati Communication Ability: Effective Hearing Ability: Normal Scoop Filler Required: No Beliefs That Will Affect Care: None marital status: Single Current Living Situation: Spouse Current Living Situation Comment: Lives with boyfriend current occupational status: employed current occupation: [employer] How many Children do You have: 0 Feels Safe at Home: Yes Childhood Exposure to Second-Hand Smoke: Yes caffeine: Yes Dental Care, Regularly: Yes Physical Activity Frequency: Daily Seatbelt Use: sometimes Sunscreen Use: Yes Assistive Devices: None Review of Systems Review of Systems: All systems reviewed & are unremarkable except as noted in HPI & below Physical Exam Constitutional: WD/WN, vitals as above Eyes: PERRL, conjunctivae normal, anicteric sclerae Neck: trachea midline, no thyromegaly Respiratory: normal respiratory effort Auscultation: + wheezes (Diffuse) Cardiovascular: Rate/Rhythm: regular rhythm and + tachycardic Gastrointestinal (Abdomen): normal bowel sounds, soft, nontender, no hepatosplenomegaly Musculoskeletal: Head/Neck/Chest: normocephalic and head atraumatic Skin: no rashes, warm and dry Neurologic: moves all extremities Psychiatric: A+Ox3, euthymic affect Affect: + anxious affect Results & Data Results & Data ([facility]) Vital Signs (Past 12 Hours) Vital Signs Temp Pulse Pulse Resp BP BP Pulse Ox 11/18/21 17:00 90 24 143/78 H 99 11/18/21 15:52 113 H 16 97 11/18/21 15:48 126 H 111 H 20 11/18/21 15:06 132 H 26 H 98 11/18/21 15:00 36.3 C L 139 H 26 H 171/100 H 89 L Code Status & VTE Plan VTE Prophylaxis Plan VTE Prophylaxis will be ordered: Yes Supervising Physician Co-Signing Physician Notes I personally examined the patient and verified all cheng points of history and exam, discussed case, and agree with decision making with Dr Redman dyspnea - got better for a little after ER visit last week but then back and bad. can't afford breo so hasn't been on maintenance. notes she's been on steroids a LOT in the last year. really wants to get on maintenance treatment she can afford and follow through with vitals noted nad heent nc at mmm lungs surprisingly clear mildly coarse but no r/r/w good effort no accessory muscles no conversational dyspnea asthma exacerbation -steroids, bronchodilators -work on setting up chronic management otherwise as above (1) Anxiety disorder Anxiety disorder type: generalized anxiety disorder Qualified Code(s): F41.1 - Generalized anxiety disorder
[2021-11-18] MEDS ORDERED: LORazepam 0.5 MG TAB PO PRN (20:33)
[2021-11-18] MEDS ORDERED: MONTELUKAST SODIUM 10 MG TABLET PO SCH (21:00)
[2021-11-19] MEDS: ALBUT/IPRATROP 3MG/0.5MG NEB 3 ML VIAL NEB PRN ×2 (02:06→06:16)
[2021-11-19] MEDS ORDERED: LORazepam 2 MG/1 ML VIAL IV STA (07:41)
[2021-11-19] MEDS ORDERED: LEVALBUTEROL HCL 1.25 MG/3 ML NEB NEB PRN (07:42)
[2021-11-19] MEDS ORDERED: XOPENEX/ATROVENT 1.25mg/0.5MG NEB COMBO NEB PRN ×2 (07:49→07:54)
[2021-11-19] MEDS ORDERED: LEVALBUTEROL 1.25MG/0.5ML NEB INH PRN (08:00)
[2021-11-19] MEDS ORDERED: IPRATROPIUM BROMIDE NEB SOLN 0.02% 2.5 ML VIAL INH PRN (08:00)
[2021-11-19] MEDS ORDERED: predniSONE 20 MG TAB PO SCH ×2 (09:00)
[2021-11-19] MEDS ORDERED: methylPREDNISolone 40 MG in SYRINGE 0 ML IV SCH (09:00)
[2021-11-19] MEDS ORDERED: DULoxetine HCL 20 MG CAP PO SCH (09:00)
[2021-11-19] MEDS ORDERED: FLUTICASONE FUROATE 200MCG 14 PUFFS/INHALER INH SCH (10:30)
[2021-11-19] MEDS ORDERED: ACETAMINOPHEN 325 MG TAB PO PRN (12:18)
[2021-11-19] MEDS ORDERED: methylPREDNISolone 40 MG in SYRINGE 0 ML IV STA (14:45)
--- NOTE | 2021-11-19 16:24 | Discharge Summary ---
Date of Service November 19, 2021 Admission HPI Per Admitting Provider Patient is a 26-year-old female with past medical history of asthma and anxiety presenting to the hospital for the chief complaint of asthma exacerbation. 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 While she was there she was cleaning with a cleaning agent that required mixing in water. When it was mixed in the water it seemed to aerosolized which had irritated her airway and was the start of her most recent exacerbation. She had gone to the emergency room shortly after and at that time she was given a DuoNeb treatment as well as IV steroids. Her breat shanita had improved and she was sent home with a steroid burst pack for which she was instructed not to take if she was feeling better, so she did not take this medication. She had gone a couple of days without any complaints, however, when she had woken up this morning she had felt that she was a little short of breath with chest tightness. She did eventually go to work and while at work she did have worsening of her shortness of breath and began audibly wheezing which did not improve with her inhaler. When she came into the ED she was given a DuoNeb treatment which she initially responded well, when the DuoNeb treatment was discontinued her exacerbation returned and she began having shortness of breath once again. She was then started on hour-long DuoNeb course. At this point a shared decision-making was done with the emergency medicine provider who deemed that the best course of action at this time was be admitted to the hospital for further observation and treatment. At the time of visiting the patient in the ED, her breathing had improved significantly and she felt that she was comfortable at this time. She was on 3 L of oxygen nasal cannula but when I removed the oxygen her saturation remained above 95%, however, oxygen was replaced before leaving interview. Patient has been utilizing her levalbuterol inhaler approximately 6 times a day between exacerbations. She used to be on Breo Ellipta for maintenance therapy starting in the beginning of 2020 but she was only able to fill it for 4 months as it would cost her $400 a month and she could no longer afford it. In the ED patient did have a VBG, x-ray, CBC, BMP, TSH, troponin, test, and Covid test. All of these tests were ultimately negative except for chest x-ray which did show hyperinflation. Patient is COVID vaccinated without booster. Patient is a full code. Principal Diagnosis asthma exacerbation Discharge Exam gen aaox3 pleasant nad heent nc at mmm lungs w faint scattered wheeze but good air entry throughout no accessory muscles no conversational dyspnea good effort skin no rashes no pallor or icterus neuro no focal deficits Discharge Data Allergies Allergy/AdvReac Type Severity Reaction Status Date / Time CATS,DOGS,DUST Allergy Unknown HIVES Uncoded 11/18/21 16:55 Consultations 11/18/21 17:04 ED Decision to Admit Stat Hospital Course (1) Asthma exacerbation: acute exac on chronic (?moderate - hard to stage since she's had a hard time getting maintenance inhalers) asthma -now improving, stable for home, wants to go home ---> prednisone / albuterol to manage current flare ---> advair set up / vetted by case management for maintenance inhaler that should be affordable - asked pt to reach out of for whatever reason it is not; continue albuterol prn. seems to have allergic focus -- will also refer to allergy -stable for home outpt management moving forward Total Time Total Time Spent Total Time Spent (In Minutes): <30 Discharge Plan Discharge Items Patient Disposition: Home - Self-Care Reason For Visit: ASTHMA EXACERBATION Discharge Diagnosis: Asthma exacerbation Condition on Discharge: Good Activity: Per Instructions section Non-emergency contact: Primary Care Provider Call non-emergency contact if: you have any medication questions Follow-up/Referrals: Pushpa Patel PA-C [Physician Product Management Manager] - 12/31/21 10:30 am (Allergy & Immunology) Mallika Galan MD [Primary Care Provider] - 11/27/21 11:30 am Diet: Regular Addtl Attending Provider Instructions: You were seen in the hospital for asthma exacerbation. While you are here you received breathing treatments to help improve your wheezing and shortness of breath. It was discovered that you really did not have a maintenance asthma medication, so we are working with your insurance company as well as with our nurse navigator to send you home with a maintenance medication that you will be able to afford. Advair was a medication that came to our minds as both a medica tion that has the active ingredients we want you to use for maintenance as well as being affordable. We will also be sending you home with steroids for the next 5 days to help calm your airway inflammation and hopefully reduce the risk of additional episodes of asthma exacerbation. You will be sent home with taking 60 mg of prednisone every day for 5 days. We recommend that you follow- up with your primary care provider within 1 week for further recommendations. Would also like you to be referred to an asthma specialist to continue working with you and your asthma. Ideally we would like you to be on your maintenance medication every day and having at home only use your rescue inhaler a few times per week. It has been a pleasure to be a part of your care and we wish you the best in bot h your health and recovery. Pending Studies at Discharge: No Stand-Alone Forms: My [facility] Medications and DC Order Prescriptions: New prednisone 20 mg tablet 60 mg PO DAILY 5 Days Qty: 15 RF: 0 fluticasone propion-salmeterol [Advair Diskus] 250-50 mcg/dose blister with device 1 inh inhalation BID Qty: 60 RF: 2 Continued montelukast 10 mg tablet 10 mg PO HS Qty: 90 RF: 1 levalbuterol HCl 1.25 mg/3 mL solution for nebulization 1.25 mg inhalation Q4H PRN (Reason: shortness of breath or wheezing) Qty: 75 RF: 0 lorazepam [Ativan] 0.5 mg tablet 0.5 mg PO DAILY PRN (Reason: anxiety) Qty: 30 RF: 0 albuterol sulfate 90 mcg/actuation HFA aerosol inhaler 2 inh INH Q4H PRN (Reason: shortness of breath or wheezing) Qty: 8 RF: 4 duloxetine [Cymbalta] 20 mg capsule,delayed release(DR/EC) 20 mg PO DAILY RF: 0 multivitamin Tablet 1 tab PO QAM RF: 0 Discharge Orders: Discharge Order (Routine); Ordered 11/19/21 Ordered By: Clyde Pérez/Other Patient Handouts: Asthma Avoid Triggers Ch, Acute Severe Asthma Admission Data Admit Date/Time: 11/18/21 19:15 Attending Provider: Diogenes Worrell Admit Provider: Dago Redman Primary Care Provider: Mallika Galan Other Providers: Herminoi Nieves Other Interventions: Discharge Summary Assessment (RN) Last Done: 11/19/21 15:02 Coding Level of Care Code D/C DAY MANAGEMENT <30 MINS Diagnoses Asthma exacerbation J45.901
--- NOTE | 2021-11-19 16:27 | Billing Data ---
Date of Service November 18, 2021 Coding Level of Care Code 57598 Initial Inpt Care Lvl 3 Comment disregard initial obs - was admit instead
--- NOTE | 2021-11-19 21:27 | Electrocardiogram Report ---
Test Reason : Blood Pressure : / mmHG Vent. Rate : 113 BPM Atrial Rate : 133 BPM P-R Int : 128 ms QRS Dur : 058 ms QT Int : 294 ms P-R-T Axes : 067 067 040 degrees QTc Int : 403 ms Poor data quality, interpretation may be adversely affected Sinus tachycardia with sinus arrhythmia Possible Left atrial enlargement Abnormal ECG When compared with ECG of 14-SEP-2021 14:09, Questionable change in initial forces of Septal leads Confirmed by Robert Fontanez ([id number]) on 11/19/2021 9:27:23 PM Referred By: REFERRED SELF Confirmed By:Robert Fontanez
[2021-11-20] MEDS ORDERED: PNEUMOCOCCAL POLYSACCHARIDES 25 MCG/0.5 ML VIAL/SYR IM ONE (20:48)
== END 2021-11-19 17:03 | disposition home or self-care (01) | DRG 203 ==
LOC: 2N 14:45 → ED 14:45 → 2N 19:55
DX: T65.891D Toxic effect of other specified substances, accidental (unintentional), subsequent encounter; Z79.899 Other long term (current) drug therapy; J45.901 Unspecified asthma with (acute) exacerbation; F41.9 Anxiety disorder, unspecified

== ENCOUNTER 2022-04-29 10:13 | Inpatient (IN) ==
--- NOTE | 2022-04-29 10:52 | Emergency Department Note ---
Impression & Plan Anxiety and depression ED Provider Note NAME: SUMEET GREER AGE: 26 SEX: F : 1995 ARRIVES VIA: Walk-In INFORMANT: Patient ED PROVIDER(S): Diogenes Mckeon DO CHIEF COMPLAINT: anxiety and depression HPI: Patient is a 26-year-old female with a past medical history of asthma, depression and anxiety that presents to the ER for not wanting to live. She n otes she is very frustrated with her asthma as she is in here multiple times before. She feels like her life is controlled by her asthma which is completely uncontrolled. She was seen here over the weekend and had her symptoms for the asthma which has now resolved but she feels very jittery worked up anxious. She admits to feeling very depressed. She denies wanting to kill her self but does admit to wanting to be found with her asthma which includes dying. ROS: See above HPI for pertinent positives & negatives. A total of 10 systems reviewed and were otherwise negative. PAST MEDICAL HISTORY:See Below PAST SURGICAL HISTORY:See Below FAMILY HISTORY:See Below SOCIAL HISTORY:See Below HOME MEDICATIONS:See Below ALLERGIES:See Below VITALS:See Below PHYSICAL EXAMINATION: GENERAL: Sitting up in bed, alert, well appearing, well nourished, no distress, non-toxic EYE EXAM: normal conjunctiva. OROPHARYNX: no exudate, no erythema, lips, buccal mucosa, and tongue normal and mucous membranes are moist NECK: supple, no nuchal rigidity, no adenopathy, non-tender LUNGS: Clear to auscultation. Normal chest wall mechanics HEART: no murmurs, S1 normal and S2 normal ABDOMEN: abdomen soft, non-tender, normo-active bowel sounds, no masses, no rebound or guarding. BACK: Back is symmetrical on inspection and there is no deformity, no midline tenderness, no CVA tenderness. SKIN: no rashes and no bruising UPPER EXTREMITIES: upper extremities are grossly normal. LOWER EXTREMITIES: No pitting edema. NEURO EXAM: Normal sensorium, cranial nerves II-XII grossly intact, normal speech, no gross weakness of arms, no gross weakness of legs. PSYCH: Admits to depression anxiety. Extremely tearful and frustrated with life. Admits to wanting to . Denies any active plan. MEDICAL DECISION MAKING: Patient is a 26-year-old female who presents ER with past medical history of asthma, anxiety and depression for not wanting to live. IV was established blood work was obtained. Labs show no significant leukocytosis or anemia. BMP along with LFTs bilirubin and TSH was unremarkable. UA was unremarkable. Tox was negative with exception of benzos and marijuana. Alcohol negative. COVID- negative. She has no chest pain or shortness of breath. On exam she has no wheezing. Patient was discussed with our psychiatric care managers and evaluated by 3 S. admitted for further work-up. Start Time: 1015 Reason: Patient with PMHx of depression underwent ED Observation for depression. Fam Hx: Depression SocHx: See Below Assessment(s): Reevaluated multiple times Summary: As described above Disposition: 04/29/2022 at 1515 Total Time: 5hrs Triage Nursing notes reviewed. Limited review of prior medical records performed Vital Signs: reviewed and remarkable for no significant abnormalities Differential diagnosis: Mood disorder, infection, hypoglycemia, electrolyte abnormalities, cardiac sources, intracerebral event, toxicologic, trauma, neurologic, as well as other pathologies. ER treatment provided: See below Diagnostics interpreted by me: ECG: none Laboratory studies: As stated above and show below. Imaging studies: See below Consultation(s): none Procedures: none Critical Care: None Past Med/Surg History Medical History Acute respiratory failure with hypoxia Asthma COVID-19 Idiopathic scoliosis Lymphadenopathy, axillary Lymphadenopathy, inguinal Peripheral eosinophilia Surgical History H/O wisdom tooth extraction Family History Father Dyslipidemia Myxoma of heart Tobacco dependency Other Cancer Diabetes Heart disease Lung disease Denies family history of Asthma Social History Smoking Status: Never smoker Tobacco Type: Cigarettes Years Smoked: 1; Cigarettes Per Day: 2; Number of Years Since Quit: 2; Second Hand Exposure: No; Hx Alcohol Use: No Hx Substance Use: Yes Preferred Language: Divehi Communication Ability: Effective Hearing Ability: Normal Seat Coverer Required: No Beliefs That Will Affect Care: None marital status: Single Current Living Situation: Spouse Current Living Situation Comment: Lives with boyfriend current occupational status: employed current occupation: [employer] How many Children do You have: 0 Feels Safe at Home: Yes Childhood Exposure to Second-Hand Smoke: Yes caffeine: Yes Dental Care, Regularly: Yes Physical Activity Frequency: Daily Seatbelt Use: sometimes Sunscreen Use: Yes Assistive Devices: None Allergies Allergies Allergy/AdvReac Type Severity Reaction Status Date / Time escitalopram [From Lexapro] AdvReac Unknown Verified 04/26/22 17:42 CATS,DOGS,DUST Allergy Unknown HIVES Uncoded 04/26/22 17:42 Home Meds Previous Rx's Medication Instructions Recorded levalbuterol HCl 1.25 mg/3 mL 1.25 mg (3 mL) inhalation Q4H PRN 12/09/21 solution for nebulization shortness of breath or wheezing #75 mL montelukast 10 mg tablet 10 mg PO HS #90 tabs 12/31/21 levalbuterol tartrate 45 2 inh inhalation Q6H PRN shortness 01/23/22 mcg/actuation aerosol inhaler of breath or wheezing #15 grams (Xopenex HFA) sertraline 50 mg tablet 50 mg PO DAILY #30 tabs 02/09/22 lorazepam 0.5 mg tablet (Ativan) 0.5 mg PO DAILY PRN anxiety #30 03/19/22 tabs fluticasone 500 mcg-salmeterol 50 1 inh inhalation BID #60 ea 04/26/22 mcg/dose blistr powdr for inhalation (Advair Diskus) tiotropium bromide 1.25 2 inh inhalation DAILY #4 grams 04/26/22 mcg/actuation mist for inhalation (Spiriva Respimat) Results & Data (ED) Vital Signs Vital Signs - 24 hr 04/29/22 10:20 Temperature 36.5 C Temperature Source Temporal Artery Scan Pulse Rate 123 H Pulse Rhythm Regular Pulse Strength Normal Respiratory Rate 20 Respiratory Effort / Characteristics Non-Labored Spontaneous Respiratory Depth Normal Blood Pressure 165/96 H Blood Pressure Mean 119 Blood Pressure Position Sitting Pulse Oximetry 97 Oxygen Delivery Method Room Air Sepsis Recent Fever Within 48 Hours No Sepsis New/Unexplained Change in Mental Status N/A Sepsis Action Taken by Nursing No Action Required Laboratory Data Result diagrams: 04/29/22 10:51 04/29/22 10:51 Lab Results 08/24/22 08/24/22 08/24/22 Range/Units 10:46 10:46 10:46 WBC (4.8-10.8) K/ul RBC (3.93-5.22) M/uL Hgb (12.0-16.0) g/dl Hct (34.1-44.9) % MCV (80.0-100.0) fL MCH (25.0-34.0) pg MCHC (32.0-36.0) g/dL RDW Std Deviation (36.4-46.3) fL RDW Coeff of Noé (11.5-14.5) % Plt Count (130-400) K/uL MPV (9.4-12.3) fL Immature Gran % (Auto) % Neut % (Auto) % Lymph % (Auto) % [place] % (Auto) % Eos % (Auto) % Baso % (Auto) % Neut # (Auto) (1.4-6.5) K/uL Lymph # (Auto) (1.2-3.4) K/uL [place] # (Auto) (0.24-0.82) K/uL Eos # (Auto) (0-0.50) K/uL Baso # (Auto) (0-0.2) K/uL Immature Gran # (Auto) (0.00-0.02) K/uL Sodium (136-145) mmol/L Potassium (3.5-5.1) mmol/L Chloride (98-107) mmol/L Carbon Dioxide (21-32) mmol/L Anion Gap (3-11) BUN (6-23) mg/dl Creatinine (0.6-1.2) mg/dl Est Cr Clr Drug Dosing ml/min Est GFR ( Amer) ml/min Est GFR (Non-Af Amer) ml/min BUN/Creatinine Ratio (10-20) Glucose (70-99(Fasting)) mg/dl Calcium (8.5-10.1) mg/dl Total Bilirubin (0.2-1.0) mg/dl AST (13-39) U/L ALT (7-52) U/L Alkaline Phosphatase (34-104) U/L Total Protein (6.0-8.3) gm/dl Albumin (3.4-5.0) gm/dl Globulin (2.5-4.0) gm/dl Albumin/Globulin Ratio (0.9-2) TSH (0.300-4.500) uIu/ml Urine Color Yellow Urine Appearance Clear (Clear) Urine pH 6.0 (4.5-7.5) Ur Specific [place] 1.020 (1.000-1.030) Urine Protein Negative (Negative) Urine Glucose (UA) Negative (Negative) Urine Ketones 1+ H (Negative) Urine Blood Trace H (Negative) Urine Nitrite Negative (Negative) Urine Bilirubin Negative (Negative) Urine Urobilinogen Negative (Negative) Ur Leukocyte Esterase Negative (Negative) Urine WBC (Auto) 1-5 (0-5) /hpf Urine RBC (Auto) 0-4 (0-4) /hpf U Hyaline Cast (Auto) 1-5 (0-5) /lpf U Epithel Cells (Auto) >30 H (0-5) /lpf Urine Bacteria (Auto) 1+ H (Negative) POC Ur Test (NEG) Salicylates (3.0-30) mg/dl Urine Opiates Screen Neg (Neg) Ur Methadone, Qual Neg (Neg) Acetaminophen (10-30) ug/ml Urine Barbiturates Neg (Neg) Ur Phencyclidine (PCP) Neg (Neg) U Amphetamin/Meth Scrn Neg (Neg) MDMA (Ecstasy) Screen Neg (Neg) U Benzodiazepines Scrn Pos H (Neg) Ur Cocaine Metabolite Neg (Neg) U Marijuana (THC) Screen Pos H (Neg) Ethyl Alcohol mg/dL (<10.0) mg/dl SARS-CoV-2, RNA, NAAT NEGATIVE (NEGATIVE) 04/29/22 04/29/22 04/29/22 Range/Units 10:51 10:51 10:51 WBC 7.02 (4.8-10.8) K/ul RBC 5.10 (3.93-5.22) M/uL Hgb 15.5 (12.0-16.0) g/dl Hct 45.2 H (34.1-44.9) % MCV 88.6 (80.0-100.0) fL MCH 30.4 (25.0-34.0) pg MCHC 34.3 (32.0-36.0) g/dL RDW Std Deviation 41.4 (36.4-46.3) fL RDW Coeff of Noé 12.7 (11.5-14.5) % Plt Count 290 (130-400) K/uL MPV 10.1 (9.4-12.3) fL Immature Gran % (Auto) 0.1 % Neut % (Auto) 67.6 % Lymph % (Auto) 21.9 % [place] % (Auto) 7.8 % Eos % (Auto) 1.3 % Baso % (Auto) 1.3 % Neut # (Auto) 4.74 (1.4-6.5) K/uL Lymph # (Auto) 1.54 (1.2-3.4) K/uL [place] # (Auto) 0.55 (0.24-0.82) K/uL Eos # (Auto) 0.09 (0-0.50) K/uL Baso # (Auto) 0.09 (0-0.2) K/uL Immature Gran # (Auto) 0.01 (0.00-0.02) K/uL Sodium 140 (136-145) mmol/L Potassium 3.5 (3.5-5.1) mmol/L Chloride 105 (98-107) mmol/L Carbon Dioxide 25 (21-32) mmol/L Anion Gap 10 (3-11) BUN 16 (6-23) mg/dl Creatinine 0.86 (0.6-1.2) mg/dl Est Cr Clr Drug Dosing 88.2 ml/min Est GFR ( Amer) 106.6 ml/min Est GFR (Non-Af Amer) 91.9 ml/min BUN/Creatinine Ratio 18.6 (10-20) Glucose 83 (70-99(Fasting)) mg/dl Calcium 9.5 (8.5-10.1) mg/dl Total Bilirubin 0.8 (0.2-1.0) mg/dl AST 23 (13-39) U/L ALT 14 (7-52) U/L Alkaline Phosphatase 42 (34-104) U/L Total Protein 7.8 (6.0-8.3) gm/dl Albumin 4.9 (3.4-5.0) gm/dl Globulin 2.9 (2.5-4.0) gm/dl Albumin/Globulin Ratio 1.7 (0.9-2) TSH 2.222 (0.300-4.500) uIu/ml Urine Color Urine Appearance (Clear) Urine pH (4.5-7.5) Ur Specific [place] (1.000-1.030) Urine Protein (Negative) Urine Glucose (UA) (Negative) Urine Ketones (Negative) Urine Blood (Negative) Urine Nitrite (Negative) Urine Bilirubin (Negative) Urine Urobilinogen (Negative) Ur Leukocyte Esterase (Negative) Urine WBC (Auto) (0-5) /hpf Urine RBC (Auto) (0-4) /hpf U Hyaline Cast (Auto) (0-5) /lpf U Epithel Cells (Auto) (0-5) /lpf Urine Bacteria (Auto) (Negative) POC Ur Test (NEG) Salicylates (3.0-30) mg/dl Urine Opiates Screen (Neg) Ur Methadone, Qual (Neg) Acetaminophen (10-30) ug/ml Urine Barbiturates (Neg) Ur Phencyclidine (PCP) (Neg) U Amphetamin/Meth Scrn (Neg) MDMA (Ecstasy) Screen (Neg) U Benzodiazepines Scrn (Neg) Ur Cocaine Metabolite (Neg) U Marijuana (THC) Screen (Neg) Ethyl Alcohol mg/dL (<10.0) mg/dl SARS-CoV-2, RNA, NAAT (NEGATIVE) 04/29/22 04/29/22 04/29/22 Range/Units 10:51 10:51 10:54 WBC (4.8-10.8) K/ul RBC (3.93-5.22) M/uL Hgb (12.0-16.0) g/dl Hct (34.1-44.9) % MCV (80.0-100.0) fL MCH (25.0-34.0) pg MCHC (32.0-36.0) g/dL RDW Std Deviation (36.4-46.3) fL RDW Coeff of Noé (11.5-14.5) % Plt Count (130-400) K/uL MPV (9.4-12.3) fL Immature Gran % (Auto) % Neut % (Auto) % Lymph % (Auto) % [place] % (Auto) % Eos % (Auto) % Baso % (Auto) % Neut # (Auto) (1.4-6.5) K/uL Lymph # (Auto) (1.2-3.4) K/uL [place] # (Auto) (0.24-0.82) K/uL Eos # (Auto) (0-0.50) K/uL Baso # (Auto) (0-0.2) K/uL Immature Gran # (Auto) (0.00-0.02) K/uL Sodium (136-145) mmol/L Potassium (3.5-5.1) mmol/L Chloride (98-107) mmol/L Carbon Dioxide (21-32) mmol/L Anion Gap (3-11) BUN (6-23) mg/dl Creatinine (0.6-1.2) mg/dl Est Cr Clr Drug Dosing ml/min Est GFR ( Amer) ml/min Est GFR (Non-Af Amer) ml/min BUN/Creatinine Ratio (10-20) Glucose (70-99(Fasting)) mg/dl Calcium (8.5-10.1) mg/dl Total Bilirubin (0.2-1.0) mg/dl AST (13-39) U/L ALT (7-52) U/L Alkaline Phosphatase (34-104) U/L Total Protein (6.0-8.3) gm/dl Albumin (3.4-5.0) gm/dl Globulin (2.5-4.0) gm/dl Albumin/Globulin Ratio (0.9-2) TSH (0.300-4.500) uIu/ml Urine Color Urine Appearance (Clear) Urine pH (4.5-7.5) Ur Specific [place] (1.000-1.030) Urine Protein (Negative) Urine Glucose (UA) (Negative) Urine Ketones (Negative) Urine Blood (Negative) Urine Nitrite (Negative) Urine Bilirubin (Negative) Urine Urobilinogen (Negative) Ur Leukocyte Esterase (Negative) Urine WBC (Auto) (0-5) /hpf Urine RBC (Auto) (0-4) /hpf U Hyaline Cast (Auto) (0-5) /lpf U Epithel Cells (Auto) (0-5) /lpf Urine Bacteria (Auto) (Negative) POC Ur Test NEG (NEG) Salicylates < 3.0 L (3.0-30) mg/dl Urine Opiates Screen (Neg) Ur Methadone, Qual (Neg) Acetaminophen < 3 L (10-30) ug/ml Urine Barbiturates (Neg) Ur Phencyclidine (PCP) (Neg) U Amphetamin/Meth Scrn (Neg) MDMA (Ecstasy) Screen (Neg) U Benzodiazepines Scrn (Neg) Ur Cocaine Metabolite (Neg) U Marijuana (THC) Screen (Neg) Ethyl Alcohol mg/dL < 10.0 (<10.0) mg/dl SARS-CoV-2, RNA, NAAT (NEGATIVE) Discharge Plan Visit Data Chief Complaint: Mental Health Evaluation Stated Complaint: MENTAL HEALTH/ASTHMA ED Provider: Diogenes Mckeon Discharge Problem: Anxiety and depression
[2022-04-29 11:18] LABS: Basophils # (auto) 0.09 K/uL (0-0.2); Basophils % (auto) 1.3 %; Eosinophils # (auto) 0.09 K/uL (0-0.50); Eosinophils % (auto) 1.3 %; Hematocrit (blood only) 45.2 % (34.1-44.9); Hemoglobin 15.5 g/dl (12.0-16.0); Immature Granulocytes # (auto) 0.01 K/uL (0.00-0.02); Immature Granulocytes % (auto) 0.1 %; Lymphocytes # (auto) 1.54 K/uL (1.2-3.4); Lymphocytes % (auto) 21.9 %; Mean Corpuscular Hemoglobin 30.4 pg (25.0-34.0); Mean Corpuscular Hgb Conc 34.3 g/dL (32.0-36.0); Mean Corpuscular Volume 88.6 fL (80.0-100.0); Mean Platelet Volume 10.1 fL (9.4-12.3); Monocytes # (auto) 0.55 K/uL (0.24-0.82); Monocytes % (auto) 7.8 %; Neutrophils # (auto) 4.74 K/uL (1.4-6.5); Neutrophils % (auto) 67.6 %; Platelet Count 290 K/uL (130-400); RDW Coefficient of Variation 12.7 % (11.5-14.5); RDW Standard Deviation 41.4 fL (36.4-46.3); White Blood Count 7.02 K/ul (4.8-10.8)
[2022-04-29 11:19] LABS: Appearance Urine Clear (Clear); Bacteria Urine Automated 1+ (Negative); Bilirubin Urine Negative (Negative); Blood Urine Trace (Negative); Color Urine Yellow; Epithelial Cell Urine Auto >30 /lpf (0-5); Glucose Urine UA Negative (Negative); Ketones Urine 1+ (Negative); Leukocyte Esterase Urine Negative (Negative); Nitrite Urine Negative (Negative); Protein Urine Negative (Negative); RBC Urine Automated 0-4 /hpf (0-4); Urobilinogen Urine Negative (Negative)
[2022-04-29 12:32] LABS: Albumin Globulin Ratio 1.7 (0.9-2); Albumin Level 4.9 gm/dl (3.4-5.0); BUN Creatinine Ratio 18.6 (10-20); Bilirubin,Total 0.8 mg/dl (0.2-1.0); Calcium 9.5 mg/dl (8.5-10.1); Creatinine Clr Calc Pharmacy 88.2 ml/min; Est GFR (African American) 106.6 ml/min; Est GFR (Non-African American) 91.9 ml/min; Globulin 2.9 gm/dl (2.5-4.0); Potassium 3.5 mmol/L (3.5-5.1); Total Protein 7.8 gm/dl (6.0-8.3)
[2022-04-29 12:33] LABS: Acetaminophen < 3 ug/ml (10-30); Salicylate < 3.0 mg/dl (3.0-30)
[2022-04-29 13:49] LABS: Amphetamines+Metham, Urine Neg (Neg); Barbiturates, Urine Neg (Neg); Benzodiazepine, Urine Pos (Neg); Cocaine, Urine Neg (Neg); MDMA (Ecstacy), Urine Neg (Neg); Methadone, Urine Neg (Neg); Opiate, Urine Neg (Neg); Phencyclidine, Urine Neg (Neg)
[2022-04-29] MEDS ORDERED: BISMUTH SUBSALICYLATE LIQD 236 ML PO PRN (14:23)
[2022-04-29] MEDS ORDERED: MAGNESIUM HYDROXIDE SUSP 30 ML UDC PO PRN (14:23)
[2022-04-29] MEDS ORDERED: SODIUM CHLORIDE 0.65% NA SOLN 45 ML (OCEAN) PRN (14:23)
[2022-04-29] MEDS ORDERED: ACETAMINOPHEN 325 MG TAB PO PRN (14:23)
[2022-04-29] MEDS ORDERED: hydrOXYzine HCl 25 MG TAB PO PRN (14:23)
[2022-04-29] MEDS ORDERED: ALUMINUM/MAGNESIUM SUSP 30 ML UDC PO PRN (14:23)
[2022-04-29] MEDS ORDERED: LEVALBUTEROL HCL 1.25 MG/3 ML NEB INH PRN (16:34)
[2022-04-29] MEDS ORDERED: LEVALBUTEROL TARTRATE 15 GM HFA.AER.AD INH PRN (16:34)
[2022-04-29] MEDS ORDERED: LORazepam 0.5 MG TAB PO PRN (16:34)
[2022-04-29] MEDS ORDERED: methylPREDNISolone 4 MG TAB, 6 DAY TAPER PO SCH (16:45)
[2022-04-29] MEDS: methylPREDNISolone 4 MG TAB, 6 DAY TAPER PO SCH ×2 (18:24→21:26)
[2022-04-29] MEDS: FLUTICASONE/SALMETEROL (ADVAIR) 500/50 INH 14 PUFF INH SCH (21:26)
[2022-04-29] MEDS: MONTELUKAST SODIUM 10 MG TABLET PO SCH (21:27)
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
[2022-04-30] MEDS: FLUTICASONE/SALMETEROL (ADVAIR) 500/50 INH 14 PUFF INH SCH ×2 (08:47→21:25)
[2022-04-30] MEDS: methylPREDNISolone 4 MG TAB, 6 DAY TAPER PO SCH ×4 (08:48→21:25)
[2022-04-30] MEDS: SPIRIVA RESPIMAT INH SCH (08:49)
[2022-04-30] MEDS ORDERED: SERTRALINE HCL 50 MG TABLET PO SCH (09:00)
[2022-04-30] MEDS ORDERED: SERTRALINE HCL 50 MG TABLET PO ONE (10:49)
[2022-04-30] MEDS: hydrOXYzine HCl 25 MG TAB PO PRN (11:44)
[2022-04-30] MEDS: MONTELUKAST SODIUM 10 MG TABLET PO SCH (21:25)
[2022-04-30] MEDS: MIRTAZAPINE TAB 15 MG TAB PO SCH (21:29)
[2022-05-01] MEDS: SERTRALINE HCL 50 MG TABLET PO SCH (08:33)
[2022-05-01] MEDS: methylPREDNISolone 4 MG TAB, 6 DAY TAPER PO SCH ×3 (08:38→17:11)
[2022-05-01] MEDS: FLUTICASONE/SALMETEROL (ADVAIR) 500/50 INH 14 PUFF INH SCH ×2 (08:38→21:40)
[2022-05-01] MEDS: SPIRIVA RESPIMAT INH SCH (08:38)
--- NOTE | 2022-05-01 08:57 | Psychiatric Progress Note ---
Date of Service May 01, 2022 Impression / Recommendations Impression The patient is a 26 year old with a history of depression, anxiety and asthma who was admitted for worsening anxiety, depression, SI and inability to function impacted by need for multiple inhalers and steroid use. Diagnostically consistent with PAIGE with panic attacks, anxiety secondary to medical condition of asthma likely exacerbated by worsening asthma attacks and steroid use/inhalers as well as MDD with anxious distress. The patient is deemed unstable and requires psychiatric hospitalization for diagnostic clarification, safety and stabilization, medication management and development of further coping skills. 05/01/22: Still with anxiety and depression but responding well to first night with mirtazapine with some lessening of anxiety and improving sleep. Tolerating increase in sertraline. Needs family meeting with her boyfriend. (1) Recurrent severe major depressive disorder with anxiety: (2) Generalized anxiety disorder with panic attacks: (3) Anxiety disorder due to general medical condition with panic attack: (4) Uncontrolled severe persistent asthma: Plan 05/01/22: Continue with current medications and tx plan. Needs family meeting. 04/30/22: The patient was [facility] on q15 min checks (behavioral with suicide precautions) for safety. The patient will participate in group, recreational, and milieu therapies and will be offered additional individual and family sessions as clinically appropriate. -Increase sertraline to 75mg -Start mirtazapine 7.5mg qhs -Ativan 0.5mg daily prn -Consideration for allergy shots to help with asthma/PCP follow-up Inventory Assets Strengths: supportive family, employed, willing to engage with treatment, willing to seek help Needs: safety and stabilization, medication adjustment, additional coping skills, incr eased outpatient services, additional resources for management of asthma Suicide Risk Level Suicide Risk Level: Moderate (q15 min suicide checks) Suicide Risk Level Comments: Moderate due to severe anxiety with panic attacks and depression and intermittent SI prior to admission but feels safe in the hospital, able to safety contract and agrees to let nursing/staff know should they develop plan, intent or feel unable to remain safe. Risk Factors Assessment : Yes Do You Have Access To A Gun?: Yes (guns are locked up and pt does not have code) Health Problems: Yes Mental Health Diagnoses: Yes Substance Use Disorders: No Previous Attempt: No Family History of Suicide: No Previous Psychiatric Hospitalization: No Hopelessness: Yes Protective Factors Assessment Employed: Yes ([employer]) Stable Relationships: Yes Supportive Family: Yes Good Rapport with Provider: Yes Interval History Identifying Information SUMEET GREER is a 26-year-old F who currently lives in [place] with her boyfriend, has a history of depression, anxiety and asthma, and was admitted on 04/29/22 14:23 on a 201 voluntary commitment for inability to function with increased anxiety, depression and SI. Chief Complaint "The mirtazapine really helped". Review of Systems Sleep Information Total Hours of Sleep: 7.75 Meal Information Percent Meal Consumed - Breakfast: 70 Percent Meal Consumed - Lunch: 50 Percent Meal Consumed - Dinner: 50 Subjective Subjective Patient was seen & assessed and interval progress reviewed with treatment team nursing and social work. Slept well overnight noting that "that was the best sleep I've had in a long time". No side effects from mirtazapine nor higher dose of sertraline. Had less anxiety this morning on awakening and was able to eat "for the first time in ages". No nausea and no diarrhea today. Finding the coping skills helpful. Still with some depression and anxiety but working on "shifting my thoughts from being negative". Physical Exam Psychiatric Orientation: alert and oriented x 3 Apperance: appropriately dressed and appropriately groomed Eye Contact: good eye contact Motor Behavior: no abnormal motor movements Speech: normal rate/rhythm/volume of speech Affect: + anxious affect Mood: + depressed mood and + anxious mood Thought Process: goal directed thought process Thought Content: reality based without delusions Suicidal Thoughts: denies suicidal thoughts Homicidal Thoughts: denies homicidal thoughts Hallucinations: no auditory hallucinations and no visual hallucinations Cognition: recent memory grossly intact, remote memory grossly intact, attention grossly intact and language grossly intact Estimated Intelligence: consistent with education level Insight: + fair insight Judgement: + fair judgement Vital Signs (Past 24 Hours) Last Vital Signs Temp 36.8 C 05/01/22 06:54 Pulse 60 05/01/22 06:54 Resp 16 05/01/22 06:54 BP 123/76 05/01/22 06:54 Pulse Ox 96 04/29/22 15:26 O2 Del Method 04/29/22 15:26 Results & Data ([facility]) Current Inpatient Medications Current Inpatient Medications: Current Inpatient Medications Acetaminophen (Acetaminophen 325 Mg Tab) 650 mg PO Q4H PRN PRN Reason: Headache or Minor Fever Stop: 05/29/22 14:22 Last Admin: 04/29/22 18:57 Dose: 650 mg Al Hydrox/Mg Hydrox/Simethicone (Aluminum/Magnesium Susp 30 Ml Udc) 30 ml PO Q4H PRN PRN Reason: GI Upset Stop: 05/29/22 14:22 Bismuth Subsalicylate (Bismuth Subsalicylate Liqd 236 Ml) 15 ml PO PRN PRN PRN Reason: Loose Stool Stop: 05/29/22 14:22 Hydroxyzine HCl (Hydroxyzine Hcl 25 Mg Tab) 50 mg PO HSZ PRN PRN Reason: Insomnia Stop: 05/29/22 14:22 Hydroxyzine HCl (Hydroxyzine Hcl 25 Mg Tab) 25 mg PO Q4H PRN PRN Reason: Anxiety Stop: 05/29/22 14:22 Last Admin: 04/30/22 11:44 Dose: 25 mg Levalbuterol HCl (Levalbuterol Hcl 1.25 Mg/3 Ml Neb) 1.25 mg INH Q4H PRN; Protocol PRN Reason: shortness of breath or wheezing Stop: 05/29/22 16:33 Levalbuterol HCl (Levalbuterol Tartrate 15 Gm Hfa.Aer.Ad) 2 puffs INH Q6H PRN PRN Reason: shortness of breath or wheezin Stop: 05/29/22 16:33 Last Admin: 04/29/22 19:09 Dose: 2 puffs Lorazepam (Lorazepam 0.5 Mg Tab) 0.5 mg PO DAILY PRN PRN Reason: anxiety Stop: 05/29/22 16:33 Last Admin: 04/29/22 22:15 Dose: 0.5 mg Magnesium Hydroxide (Magnesium Hydroxide Susp 30 Ml Udc) 30 ml PO DAILY PRN PRN Reason: Constipation Stop: 05/29/22 14:22 Methylprednisolone (Methylprednisolone 4 Mg Tab, 6 Day Taper) 1 each PO ACHS CATY Stop: 05/29/22 17:14 Last Admin: 05/01/22 08:38 Dose: 1 each Mirtazapine (Mirtazapine Tab 15 Mg Tab) 7.5 mg PO HS CATY Stop: 05/30/22 21:59 Last Admin: 04/30/22 21:29 Dose: 7.5 mg Montelukast Sodium (Montelukast Sodium 10 Mg Tablet) 10 mg PO HS CATY Stop: 05/29/22 21:59 Last Admin: 04/30/22 21:25 Dose: 10 mg Spiriva Respimat: Non-Formulary Patient's Own Med 2 each INH DAILY CATY Stop: 05/30/22 08:59 Last Admin: 05/01/22 08:38 Dose: 1 inhaler Fluticasone/Salmeterol (Fluticasone/Salmeterol (Advair) 500/50 Inh 14 Puff) 1 puffs INH BID CATY Stop: 05/29/22 20:59 Last Admin: 05/01/22 08:38 Dose: 1 puffs Sertraline HCl (Sertraline Hcl 50 Mg Tablet) 75 mg PO DAILY CATY Stop: 05/31/22 08:59 Last Admin: 05/01/22 08:33 Dose: 75 mg Sodium Chloride (Sodium Chloride 0.65% Na Soln 45 Ml ([place])) 1 - 2 sprays NA PRN PRN PRN Reason: Nasal Dryness/Congestion Stop: 05/29/22 14:22 Mental Health & Subst Abuse Tx Therapist Name of Therapist: None Sand Analyst Name of Sand Analyst: None Post Discharge Appointments Primary Care Physician Name Of Family Doctor: Dr Galan
[2022-05-01] MEDS: MONTELUKAST SODIUM 10 MG TABLET PO SCH (21:40)
[2022-05-01] MEDS: MIRTAZAPINE TAB 15 MG TAB PO SCH (21:40)
[2022-05-02 09:02] LABS: 7-Aminoclonaz, Confirm NEGATIVE ng/mL (<25); Hydro-Alp Ur, GC/MS 115 ng/mL (<25); Hydroxyethylflurazepam, Conf NEGATIVE ng/mL (<50); Hydroxymidazolam Ur, GC/MS NEGATIVE ng/mL (<50); Hydroxytriazolam NEGATIVE ng/mL (<50); Lorazepam, Ur GC/MS NEGATIVE ng/mL (<50); Marijuana Quant, GCMS Urine 639 ng/mL (<5); Nordiazepam, Confirm NEGATIVE ng/mL (<50); Oxazepam Ur, GC/MS NEGATIVE ng/mL (<50); Temazepam, Confirm NEGATIVE ng/mL (<50)
[2022-05-02] MEDS: hydrOXYzine HCl 25 MG TAB PO PRN (09:07)
[2022-05-02] MEDS: SERTRALINE HCL 50 MG TABLET PO SCH (09:08)
[2022-05-02] MEDS: SPIRIVA RESPIMAT INH SCH (10:01)
[2022-05-02] MEDS: FLUTICASONE/SALMETEROL (ADVAIR) 500/50 INH 14 PUFF INH SCH (10:01)
--- NOTE | 2022-05-02 10:17 | Discharge Summary ---
Date of Service May 02, 2022 History of Present Illness Ingrid presents for psychiatric admission for worsening depression and anxiety in the context of uncontrollable asthma on multiple inhalers and current steroid taper. She had a panic attack last night after admission. She finds that mornings are most difficult for her and has felt incredible overwhelmed by anxiety which has lead to depression and SI. She feels "crippled with fear all the time" because her asthma can come on suddenly and she worries about needing to be near enough to a hospital if she can't breath and notes that then she ends up being on prednisone and "that makes me feel even more crazy" due to medication side effects. She notes the frustration of seeing pulmonology specialists and getting extensive medical workups for her asthma but it remains uncontrolled. Confirmed the information she provided to the retail sales manager regarding recent symptoms: "reports extreme anxiety and increasing depression. She has been having multiple panic attacks daily with a constant general anxiety. Pt has a hx of asthma which has been difficult to get under control recently. She reports that her anxiety has heightened to the point that she cannot function. She is not going to work, not eating and having great difficulty sleeping. She reports her asthma diagnosis, and not being able to find the correct medications, as her main stressor. She states she has become obsessed with a fear of having an asthma attack and cannot get passed these thoughts. She is very tearful and states I wish I was , however she denies a plan or intent. Pt works at [employer] but has been missing work due to her insurmountable anxiety. She is not sleeping more than 3 hours per night which she believes is also worsening her anxiety and depression. She reports an inability to eat and has been losing weight as a result." She endorses depressive symptoms including tearfulness, anhedonia, decreased motivation, self-guilt, helplessness, hopelessness, decreased energy, decreased appetite, and decreased sleep. Passive SI has been occurring for the last 7 years especially when her asthma worsens due to "not wanting to live like this". She also endorses symptoms of anxiety including generalized worries, shakiness, somatic symptoms GI distress, easily overwhelmed and panic attacks. She is currently prescribed sertraline 50mg qd (has been on for about 1 month, no side effects but also no benefit) and ativan 0.5mg daily prn for panic attacks (used to use it once every 3 days but in the last few days when asthma worsened the panic attacks worsened and she's needed to take it up to three times per day). Psychiatric ROS notable for no current nor history of symptoms of nena, psychosis, hx PTSD but no current symptoms, OCD nor eating disorder, hx of self- harm when on steroids but otherwise never in the past. Physical Exam Vital Signs (Past 24 Hours) Last Vital Signs Temp 36.9 C 05/02/22 06:42 Pulse 70 05/02/22 06:42 Resp 16 05/02/22 06:42 BP 130/81 05/02/22 06:42 Pulse Ox 96 04/29/22 15:26 O2 Del Method 04/29/22 15:26 See admission H&P and DOD summary. 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 In short, patient was engaged with the social/therapeutic milieu of the unit, safety was maintained and the patient was cooperative with care. Medication changes included initiation of mirtazapine 7.5mg qhs for insomnia/nausea/anxiety/appetite, increase of sertraline to 75mg daily and start of Vistaril 25mg BID prn for anxiety/insomnia and they tolerated this well. A family session was held and safety plan was completed prior to discharge. Given the impact of asthma exacerbations on anxiety and known side effects of prednisone/inhaler impact on mood/anxiety I strongly encourage further workup and exploration of treatment options for her asthma, including possibility for allergy shots as this could significantly improve her quality of life and reduce some of her anxiety. She is also going to start outpatient therapy to help manage anxiety symptoms related to fears about further asthma exacerbations/panic attacks. She did not desire a new script for lorazepam given concerns about addictive potential and family history of substance use but discussed that in the future this could be used if necessary (would limit scripts to a few pills per month for severe panic attacks). If sleep worsens could increase mirtazapine to 15mg qhs. If anxiety worsens or does not improve enough in the next 4-6 weeks with sertraline increase and outpatient therapy then consider further titration to 100mg daily. She actively and insightfully participated in safety planning and in discussions about ways to seek support and recognizing warning signs and utilizing coping skills. Reviewed mobile apps that could be used for additional ways to have their safety plan and contacts easily available and for reducing panic attacks. Reviewed importance of seeking emergency care should SI occur in the future or should she feel unsafe in the future which she agrees to do. On the day of discharge she stated her mood was "good, a little nervous about going home but I'm ready" and remained future-oriented including spending time with her boyfriend, seeing her animals, seeing her family, returning to work and engaging in aftercare appointments for therapy and with her primary care physician. Day of Discharge Assessment Today the patient voices readiness for discharge. They note improvement in mood and anxiety. They deny thoughts of harm to self or others. Thoughts are organized and they are clinically improved from admission. There is no evidence of psychosis. They improved in the hospital with support and medication adjustments. They agree to take medications as prescribed and keep follow-up appointments. At the time of the discharge they are deemed to be stable and appropriate for outpatient level of care. They are not deemed to be at imminent risk of harm to self or others. They are aware of emergency and crisis services. Knows to call 911 or go to nearest emergency care center if in a crisis which cannot be handled as an outpatient. Transition of Care Transition Of Care Record: was reviewed with the patient Advance Directives Advance Directives Information Provided: Yes Advance Directives: No Mental Health Advance Directive: No Advance Directives on File: No Living Will: No Power of Wood Tile Installer: No Advance Directives Reason:: Declines as Mental Health Visit. Suicide Risk Level Suicide Risk Level Comments: Acute risk is low given improvement in mood and denial of SI, lack of access to lethal means, improvement in sleep, hopefulness and improvement in appetite. Chronic risk is low given few non-modifiable risk factors, resiliency and multiple protective factors. Counseled on ways to reduce acute and chronic risk including engaging with outpatient providers, using safety plan if needed, utilizing supports, taking medication, and using coping skills. Modifiable risk factors of depression and panic attacks were addressed during hospitalization through development of new coping skills, family meeting, safety planning, and medication adjustments. Risk Factors Assessment : Yes Do You Have Access To A Gun?: Yes (guns are locked up and pt does not have code) Health Problems: Yes Mental Health Diagnoses: Yes Substance Use Disorders: No Previous Attempt: No Family History of Suicide: No Previous Psychiatric Hospitalization: No Hopelessness: No Protective Factors Assessment Employed: Yes ([employer]) Stable Relationships: Yes Supportive Family: Yes Good Rapport with Provider: Yes Discharge Data Lab Results 04/29/22 04/29/22 04/29/22 10:46 10:46 10:46 WBC RBC Hgb Hct MCV MCH MCHC RDW Std Deviation RDW Coeff of Noé Plt Count MPV Immature Gran % (Auto) Neut % (Auto) Lymph % (Auto) [place] % (Auto) Eos % (Auto) Baso % (Auto) Neut # (Auto) Lymph # (Auto) [place] # (Auto) Eos # (Auto) Baso # (Auto) Immature Gran # (Auto) Sodium Potassium Chloride Carbon Dioxide Anion Gap BUN Creatinine Est Cr Clr Drug Dosing Est GFR ( Amer) Est GFR (Non-Af Amer) BUN/Creatinine Ratio Glucose Calcium Total Bilirubin AST ALT Alkaline Phosphatase Total Protein Albumin Globulin Albumin/Globulin Ratio TSH Urine Color Yellow Urine Appearance Clear Urine pH 6.0 Ur Specific [place] 1.020 Urine Protein Negative Urine Glucose (UA) Negative Urine Ketones 1+ H Urine Blood Trace H Urine Nitrite Negative Urine Bilirubin Negative Urine Urobilinogen Negative Ur Leukocyte Esterase Negative Urine WBC (Auto) 1-5 Urine RBC (Auto) 0-4 U Hyaline Cast (Auto) 1-5 U Epithel Cells (Auto) >30 H Urine Bacteria (Auto) 1+ H POC Ur Test Salicylates Urine Opiates Screen Neg Ur Methadone, Qual Neg Acetaminophen Urine Barbiturates Neg Ur Phencyclidine (PCP) Neg U Amphetamin/Meth Scrn Neg MDMA (Ecstasy) Screen Neg U OH-Alprazolam Confrm U Benzodiazepines Scrn Pos H 7-Amino Clonazepam Ur Nordiazepam Confirm U OH-ethylflurazepam U Lorazepam Cnf GC/MS U Oxazepam Confm GC/MS Ur Temazepam Confirm U OH-Triazolam Confirm U OH-Midazolam Confirm Ur Cocaine Metabolite Neg U Marijuana (THC) Screen Pos H U Marijuana THC Carboxy Drug Screen Comment Ethyl Alcohol mg/dL SARS-CoV-2, RNA, NAAT NEGATIVE 04/29/22 04/29/22 04/29/22 10:46 10:51 10:51 WBC 7.02 RBC 5.10 Hgb 15.5 Hct 45.2 H MCV 88.6 MCH 30.4 MCHC 34.3 RDW Std Deviation 41.4 RDW Coeff of Noé 12.7 Plt Count 290 MPV 10.1 Immature Gran % (Auto) 0.1 Neut % (Auto) 67.6 Lymph % (Auto) 21.9 [place] % (Auto) 7.8 Eos % (Auto) 1.3 Baso % (Auto) 1.3 Neut # (Auto) 4.74 Lymph # (Auto) 1.54 [place] # (Auto) 0.55 Eos # (Auto) 0.09 Baso # (Auto) 0.09 Immature Gran # (Auto) 0.01 Sodium 140 Potassium 3.5 Chloride 105 Carbon Dioxide 25 Anion Gap 10 BUN 16 Creatinine 0.86 Est Cr Clr Drug Dosing 88.2 Est GFR ( Amer) 106.6 Est GFR (Non-Af Amer) 91.9 BUN/Creatinine Ratio 18.6 Glucose 83 Calcium 9.5 Total Bilirubin 0.8 AST 23 ALT 14 Alkaline Phosphatase 42 Total Protein 7.8 Albumin 4.9 Globulin 2.9 Albumin/Globulin Ratio 1.7 TSH Urine Color Urine Appearance Urine pH Ur Specific [place] Urine Protein Urine Glucose (UA) Urine Ketones Urine Blood Urine Nitrite Urine Bilirubin Urine Urobilinogen Ur Leukocyte Esterase Urine WBC (Auto) Urine RBC (Auto) U Hyaline Cast (Auto) U Epithel Cells (Auto) Urine Bacteria (Auto) POC Ur Test Salicylates Urine Opiates Screen Ur Methadone, Qual Acetaminophen Urine Barbiturates Ur Phencyclidine (PCP) U Amphetamin/Meth Scrn MDMA (Ecstasy) Screen U OH-Alprazolam Confrm 115 H U Benzodiazepines Scrn 7-Amino Clonazepam NEGATIVE Ur Nordiazepam Confirm NEGATIVE U OH-ethylflurazepam NEGATIVE U Lorazepam Cnf GC/MS NEGATIVE U Oxazepam Confm GC/MS NEGATIVE Ur Temazepam Confirm NEGATIVE U OH-Triazolam Confirm NEGATIVE U OH-Midazolam Confirm NEGATIVE Ur Cocaine Metabolite U Marijuana (THC) Screen U Marijuana THC Carboxy 639 H Drug Screen Comment SEE NOTE Ethyl Alcohol mg/dL SARS-CoV-2, RNA, NAAT 04/29/22 04/29/22 04/29/22 10:51 10:51 10:51 WBC RBC Hgb Hct MCV MCH MCHC RDW Std Deviation RDW Coeff of Noé Plt Count MPV Immature Gran % (Auto) Neut % (Auto) Lymph % (Auto) [place] % (Auto) Eos % (Auto) Baso % (Auto) Neut # (Auto) Lymph # (Auto) [place] # (Auto) Eos # (Auto) Baso # (Auto) Immature Gran # (Auto) Sodium Potassium Chloride Carbon Dioxide Anion Gap BUN Creatinine Est Cr Clr Drug Dosing Est GFR ( Amer) Est GFR (Non-Af Amer) BUN/Creatinine Ratio Glucose Calcium Total Bilirubin AST ALT Alkaline Phosphatase Total Protein Albumin Globulin Albumin/Globulin Ratio TSH 2.222 Urine Color Urine Appearance Urine pH Ur Specific [place] Urine Protein Urine Glucose (UA) Urine Ketones Urine Blood Urine Nitrite Urine Bilirubin Urine Urobilinogen Ur Leukocyte Esterase Urine WBC (Auto) Urine RBC (Auto) U Hyaline Cast (Auto) U Epithel Cells (Auto) Urine Bacteria (Auto) POC Ur Test Salicylates < 3.0 L Urine Opiates Screen Ur Methadone, Qual Acetaminophen < 3 L Urine Barbiturates Ur Phencyclidine (PCP) U Amphetamin/Meth Scrn MDMA (Ecstasy) Screen U OH-Alprazolam Confrm U Benzodiazepines Scrn 7-Amino Clonazepam Ur Nordiazepam Confirm U OH-ethylflurazepam U Lorazepam Cnf GC/MS U Oxazepam Confm GC/MS Ur Temazepam Confirm U OH-Triazolam Confirm U OH-Midazolam Confirm Ur Cocaine Metabolite U Marijuana (THC) Screen U Marijuana THC Carboxy Drug Screen Comment Ethyl Alcohol mg/dL < 10.0 SARS-CoV-2, RNA, NAAT 04/29/22 10:54 WBC RBC Hgb Hct MCV MCH MCHC RDW Std Deviation RDW Coeff of Noé Plt Count MPV Immature Gran % (Auto) Neut % (Auto) Lymph % (Auto) [place] % (Auto) Eos % (Auto) Baso % (Auto) Neut # (Auto) Lymph # (Auto) [place] # (Auto) Eos # (Auto) Baso # (Auto) Immature Gran # (Auto) Sodium Potassium Chloride Carbon Dioxide Anion Gap BUN Creatinine Est Cr Clr Drug Dosing Est GFR ( Amer) Est GFR (Non-Af Amer) BUN/Creatinine Ratio Glucose Calcium Total Bilirubin AST ALT Alkaline Phosphatase Total Protein Albumin Globulin Albumin/Globulin Ratio TSH Urine Color Urine Appearance Urine pH Ur Specific [place] Urine Protein Urine Glucose (UA) Urine Ketones Urine Blood Urine Nitrite Urine Bilirubin Urine Urobilinogen Ur Leukocyte Esterase Urine WBC (Auto) Urine RBC (Auto) U Hyaline Cast (Auto) U Epithel Cells (Auto) Urine Bacteria (Auto) POC Ur Test NEG Salicylates Urine Opiates Screen Ur Methadone, Qual Acetaminophen Urine Barbiturates Ur Phencyclidine (PCP) U Amphetamin/Meth Scrn MDMA (Ecstasy) Screen U OH-Alprazolam Confrm U Benzodiazepines Scrn 7-Amino Clonazepam Ur Nordiazepam Confirm U OH-ethylflurazepam U Lorazepam Cnf GC/MS U Oxazepam Confm GC/MS Ur Temazepam Confirm U OH-Triazolam Confirm U OH-Midazolam Confirm Ur Cocaine Metabolite U Marijuana (THC) Screen U Marijuana THC Carboxy Drug Screen Comment Ethyl Alcohol mg/dL SARS-CoV-2, RNA, NAAT Hospital Course (1) Recurrent severe major depressive disorder with anxiety: (2) Generalized anxiety disorder with panic attacks: (3) Anxiety disorder due to general medical condition with panic attack: (4) Uncontrolled severe persistent asthma: Plan 05/01/22: Continue with current medications and tx plan. Needs family meeting. 04/30/22: The patient was admitted to the [facility] ([facility]) on q15 min checks (behavioral with suicide precautions) for safety. The patient will participate in group, recreational, and milieu therapies and will be offered additional individual and family sessions as clinically appropriate. -Increase sertraline to 75mg -Start mirtazapine 7.5mg qhs -Ativan 0.5mg daily prn -Consideration for allergy shots to help with asthma/PCP follow-up Mental Health & Subst Abuse Tx Psychiatrist Name of Psychiatrist: None Therapist Name of Therapist: [facility] Alison Baca ([email or web address]) Therapist's Therapy Appointment Comment: referral sent: follow up Friday 05/04 to schedule and have access to portal Mobile Security Specialist Name of Mobile Security Specialist: None Post Discharge Appointments Primary Care Physician Name Of Family Doctor: [facility] - Dr Galan Primary Care Date of Appointment with PCP: 05/06/22 Time of Appointment with PCP: 11:30am Provider Appointment Comment: [address] [place] [id number] Contact Information Discharge Phone Number: [phone] Discharge [address]: [address] [place] [address] Discharge Plan Discharge Items Patient Disposition: Home - Self-Care Reason For Visit: DEPRESSION Discharge Diagnosis: Major depressive disorder with anxious distress, Generalized anxiety disorder with panic attacks, Anxiety disorder due to asthma Activity: Resume your previous activity Non-emergency contact: Primary Care Provider and Therapist Call non-emergency contact if: you have any medication questions and your symptoms worsen Follow-up/Referrals: Mallika Galan MD [Primary Care Provider] - Diet: Regular Addtl Attending Provider Instructions: Optional mobile apps we discussed: -Suicide safety plan -Virtual Hope Box -Panic Playground Attendant SPECIAL CARE INSTRUCTIONS: 1. Follow through with your scheduled aftercare appointments. If unable to keep an appointment, please call to reschedule. 2. Take your medication only as prescribed. Medication should not be changed or stopped without the approval of your doctor. In the event of worsening symptoms or concerns about side effects, contact your doctor immediately. 3. Utilize new healthy coping skills, anger management skills, and stress management skills learned during your hospitalization. Journal feelings and process them with a support person. Identify stressors or situations that may result in relapse, deterioration or inappropriate behaviors and develop a p belén to deal with those issues. 4. If your coping skills are ineffective and you are in crisis, contact your outpatient providers for direction. If unable to reach your providers, please call the [facility] CRISIS LINE AT , go to the [facility] walk-in center at [address] [place] [address], [facility], [place], or go to the closest Emergency Room. 5. Avoid alcohol and un-prescribed drugs. 6. You have been provided with the Mental Health Advance Directives Pamphlet for your review. 7. Your condition is stable for discharge to outpatient level of care, but recovery is an ongoing process. Ifthoughts to harm yourself or others return, follow the safety plan developed during your stay. Planning for a safe return home includes securing weapons. Our treatment team recommends weaponsbe removed from the home until your outpatient provider reassesses your progress. In rare cases where the items themselvescannot be removed, guns and ammunitionshould be secured separatelyand keys stored by a reliable personoutside of the home. If you were admitted on an involuntary commitment, the police or other legal authorities may be involved in this process. AFTERCARE APPOINTMENTS: * Please call your insurance company prior to your scheduled appointment to confirm your aftercare providers are covered. Take your insurance information to your appointments. WHO TO CALL AND WHEN: Medical Emergencies: For questions or emergencies related to your hospital stay, please contact the Inpatient Behavioral Health Unit at [phone]. A agricultural produce washer is on-call 29/03 for the Behavioral Health Unit for emergencies At any time you feel your situation is an emergency, you may also call 911 immediately. Pending Studies at Discharge: No Medications and DC Order Prescriptions: New sertraline 50 mg Tablet 75 mg PO DAILY 30 Days Qty: 45 0RF hydroxyzine HCl 25 mg Tablet 25 mg PO BID PRN (Reason: anxiety/insomnia ) 30 Days Qty: 60 0RF mirtazapine 15 mg Tablet 7.5 mg PO HS 30 Days Qty: 15 0RF Continued levalbuterol HCl 1.25 mg/3 mL solution for nebulization 1.25 mg inhalation Q4H PRN (Reason: shortness of breath or wheezing) Qty: 75 5RF montelukast 10 mg tablet 10 mg PO HS Qty: 90 1RF levalbuterol tartrate [Xopenex HFA] 45 mcg/actuation HFA aerosol inhaler 2 inh inhalation Q6H PRN (Reason: shortness of breath or wheezing) Qty: 15 3RF Spiriva Respimat 1.25 mcg/actuation mist 2 inh inhalation DAILY Qty: 4 1RF fluticasone propion-salmeterol [Advair Diskus] 500-50 mcg/dose blister with device 1 inh inhalation BID Qty: 60 1RF Discontinued sertraline 50 mg tablet 50 mg PO DAILY Qty: 30 5RF lorazepam [Ativan] 0.5 mg tablet 0.5 mg PO DAILY PRN (Reason: anxiety) Qty: 30 0RF Discharge Orders: Discharge Order (Routine); Ordered 05/02/22 Ordered By: Charu Aguilera Admission Data Admit Date/Time: 04/29/22 14:23 Attending Provider: Charu Aguilera Admit Provider: Charu Aguilera Primary Care Provider: Mallika Galan Other Interventions: Discharge Summary Assessment (RN) Last Done: 05/02/22 11:31 PSY Interdisciplinary Discharge Planning Last Done: 05/02/22 11:33 Coding Level of Care Code 60871 D/C day mgmt > 30 min Diagnoses Recurrent severe major depressive disorder with anxiety F33.2; F41.9 Generalized anxiety disorder with panic attacks F41.1; F41.0 Anxiety disorder due to general medical condition with panic attack F06.4; F41.0 Uncontrolled severe persistent asthma J45.50 Time Spent (min) 40
== END 2022-05-02 12:09 | disposition home or self-care (01) | DRG 885 ==
LOC: ED 10:13 → 3S 14:23
DX: Z88.8 Allergy status to other drugs, medicaments and biological substances; Z81.4 Family history of other substance abuse and dependence; Z79.51 Long term (current) use of inhaled steroids; F32.2 Major depressive disorder, single episode, severe without psychotic features; Z79.899 Other long term (current) drug therapy; J45.51 Severe persistent asthma with (acute) exacerbation; Z91.09 Other allergy status, other than to drugs and biological substances; F41.0 Panic disorder [episodic paroxysmal anxiety]; Z87.891 Personal history of nicotine dependence; F41.1 Generalized anxiety disorder

== ENCOUNTER 2023-03-07 18:38 | Inpatient (IN) ==
[2023-03-07] MEDS ORDERED: ONDANSETRON INJ 2 MG/ML 2 ML VIAL IV STA (18:44)
[2023-03-07] MEDS ORDERED: SODIUM CHLORIDE 0.9% 1000ML 1,000 ML IV SCH (18:45)
--- NOTE | 2023-03-07 19:08 | Emergency Department Note ---
Impression & Plan Shiga toxin-producing Escherichia coli infection, Hematochezia ED Provider Note CHIEF COMPLAINT: Bloody stools, vomiting HISTORY OF PRESENT ILLNESS: This 27-year-old female patient with past medical history of asthma, seasonal allergies, generalized anxiety disorder presents to the emergency department with 3 days of vomiting and diarrhea. Patient states she stopped vomiting today but developed bloody stools. Every hour or so the patient developed some severe abdominal cramping and has a small liquid stool that appears to be a dark blood. She has noticed a bit of bright red blood. 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 Patient denies any recent antibiotic use and has no known history of C. difficile. REVIEW OF SYSTEMS: A review of systems was performed with positives and pertin ent negatives listed in the history of present illness. 10 systems were reviewed and are otherwise negative. ALLERGIES: see below MEDICATIONS: see below PMH: see below SOCIAL HISTORY: see below DDx: Viral illness, foodborne illness, C. difficile colitis, diverticulitis, colonic mass, among others. PHYSICAL EXAM: Vital signs reviewed. General: Well-appearing 27-year-old female, in no significant distress. HEENT: No scleral icterus, PERRLA, neck supple. Moist mucous membranes. Cardiovascular: Regular rate and rhythm, no extra sounds. Pulmonary: Clear to auscultation bilaterally, normal work of breathing. Abdomen: Soft, minimal discomfort in the left lower quadrant to palpation, no ndistended, positive bowel sounds. Musculoskeletal: Atraumatic, no peripheral edema. Neurologic: Patient awake alert and oriented x 3, speech is clear Skin: Warm, dry, no rash EMERGENCY DEPARTMENT COURSE/MDM: This patient was evaluated and appeared to be in no significant distress. IV access was obtained and laboratory work was drawn. The patient was placed on a cardiac rehabilitation program director noted to be in a normal sinus rhythm. She was hydrated with normal saline solution. The patient was able to provide a stool specimen which is positive for E. coli shiga toxin. Stool is positive Hemoccult. Case was discussed with Dr. Fry of the hospitalist service to evaluate the patient for admission and further management. Patient is aware of the plan and agrees. MONITORING: An order for cardiac monitoring was placed and the patient is noted to be in a NSR at 82 beats per minute. DISPOSITION: Home Past Med/Surg History Medical History Acute respiratory failure with hypoxia Anxiety and depression Asthma COVID-19 Idiopathic scoliosis Lymphadenopathy, axillary Lymphadenopathy, inguinal Peripheral eosinophilia Recurrent severe major depressive disorder with anxiety Severe persistent asthma Surgical History H/O wisdom tooth extraction Family History Father Dyslipidemia Myxoma of heart Tobacco dependency Other Cancer Diabetes Heart disease Lung disease Denies family history of Asthma Social History Smoking Status: Never smoker Tobacco Type: Cigarettes Cigarettes Per Day: 2; Second Hand Exposure: No; Do You Dip or Chew Tobacco: No; Hx Alcohol Use: No Hx Substance Use: Yes Preferred Language: Vietnamese Communication Ability: Effective Hearing Ability: Normal 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: No Beliefs That Will Affect Care: None marital status: Single Current Living Situation: Spouse Current Living Situation Comment: Lives with boyfriend current occupational status: employed current occupation: [employer] How many Children do You have: 0 Feels Safe at Home: Yes Childhood Exposure to Second-Hand Smoke: Yes Diet: regular caffeine: Yes Dental Care, Regularly: Yes Physical Activity Frequency: Daily Seatbelt Use: sometimes Sunscreen Use: Yes Assistive Devices: None Allergies Allergies Allergy/AdvReac Type Severity Reaction Status Date / Time escitalopram [From Lexapro] AdvReac Unknown Verified 03/07/23 22:28 Home Meds Home Medications Medication Instructions Recorded Confirmed hydroxyzine HCl 25 mg tablet 25 mg PO DAILY PRN Anxiety 03/07/23 03/07/23 sertraline 100 mg tablet 100 mg PO DAILY 03/07/23 03/07/23 triamcinolone acetonide 55 mcg 2 spray intranasal DAILY PRN 03/07/23 03/07/23 nasal spray aerosol (Nasacort allergies Allergy) Previous Rx's Medication Instructions Recorded montelukast 10 mg tablet 10 mg PO HS #90 tabs 07/09/22 levalbuterol HCl 1.25 mg/3 mL 1.25 mg (3 mL) inhalation Q4H PRN 09/16/22 solution for nebulization shortness of breath or wheezing #75 mL levalbuterol tartrate 45 2 inh inhalation Q6H PRN shortness 09/16/22 mcg/actuation aerosol inhaler of breath or wheezing #15 grams (Xopenex HFA) benralizumab 30 mg/mL subcutaneous 30 mg subcut .COMPLEX #1 mL 09/28/22 syringe (Fasenra) albuterol sulfate 90 mcg/actuation 2 puff inhalation Q4H PRN 11/13/22 aerosol inhaler Shortness Of Breath Or Wheezing #8.5 grams fluticasone fur. 200 mcg-umeclid 1 inh inhalation DAILY #3 Inhalers 11/13/22 62.5 mcg-vilant 25 mcg inhalat.powder (Trelegy Ellipta) Results & Data (ED) Vital Signs Vital Signs - 24 hr 03/07/23 18:41 03/07/23 19:13 03/07/23 19:12 Temperature 36.8 C Temperature Source Temporal Artery Scan Pulse Rate 84 78 85 Pulse Rate from SpO2 Sensor Pulse Rhythm Regular Respiratory Rate 20 17 Respiratory Effort / Characteristics Non-Labored Spontaneous Respiratory Depth Normal Respiratory Pattern Regular Blood Pressure 153/90 H Blood Pressure Mean 111 Blood Pressure Position Sitting Pulse Oximetry 95 96 Oxygen Delivery Method Room Air Room Air Sepsis Recent Fever Within 48 Hours No Sepsis New/Unexplained Change in Mental Status No Sepsis Action Taken by Nursing No Action Required 03/07/23 20:00 03/07/23 21:00 03/08/23 00:38 Temperature Temperature Source Pulse Rate 82 82 87 Pulse Rate from SpO2 Sensor 84 82 Pulse Rhythm Respiratory Rate 16 17 18 Respiratory Effort / Characteristics Respiratory Depth Respiratory Pattern Blood Pressure 128/71 143/83 H 142/90 H Blood Pressure Mean 90 103 107 Blood Pressure Position Pulse Oximetry 97 95 95 Oxygen Delivery Method Room Air Room Air Room Air Sepsis Recent Fever Within 48 Hours Sepsis New/Unexplained Change in Mental Status Sepsis Action Taken by Nursing 03/08/23 00:39 03/08/23 01:00 Temperature Temperature Source Pulse Rate 88 83 Pulse Rate from SpO2 Sensor Pulse Rhythm Respiratory Rate 18 15 Respiratory Effort / Characteristics Respiratory Depth Respiratory Pattern Blood Pressure 142/90 H 125/60 Blood Pressure Mean 107 81 Blood Pressure Position Pulse Oximetry 95 97 Oxygen Delivery Method Room Air Room Air Sepsis Recent Fever Within 48 Hours Sepsis New/Unexplained Change in Mental Status Sepsis Action Taken by Prison Medications Current Medication List: was personally reviewed by me Laboratory Data Attestation: I reviewed the patient's lab results. 03/08/23 00:23 03/07/23 19:01 Lab Results 03/07/23 03/07/23 03/07/23 Range/Units 19:00 19:00 19:01 WBC 13.85 H (4.8-10.8) K/ul RBC 5.07 (4.20-5.40) M/uL Hgb 15.6 (12.0-16.0) g/dl Hct 44.8 (37.0-47.0) % MCV 88.4 (80.0-100.0) fL MCH 30.8 (25.0-34.0) pg MCHC 34.8 (32.0-36.0) g/dL RDW Std Deviation 41.4 (36.4-46.3) fL RDW Coeff of Noé 12.8 (11.5-14.5) % Plt Count 227 (130-400) K/uL MPV 10.5 (9.4-12.4) fL Immature Gran % (Auto) 0.2 % Neut % (Auto) 87.0 % Lymph % (Auto) 7.1 % Butts % (Auto) 5.6 % Eos % (Auto) 0.0 % Baso % (Auto) 0.1 % Neut # (Auto) 12.04 H (1.40-6.50) K/uL Lymph # (Auto) 0.98 L (1.2-3.4) K/uL Butts # (Auto) 0.78 H (0.11-0.59) K/uL Eos # (Auto) 0.00 (0-0.50) K/uL Baso # (Auto) 0.02 (0-0.2) K/uL Immature Gran # (Auto) 0.03 (0.01-0.20) K/uL Sodium (136-145) mmol/L Potassium (3.5-5.1) mmol/L Chloride (98-107) mmol/L Carbon Dioxide (21-32) mmol/L Anion Gap (3-11) BUN (6-23) mg/dl Creatinine (0.6-1.2) mg/dl Est Cr Clr Drug Dosing ml/min Est GFR ( Amer) ml/min Est GFR (Non-Af Amer) ml/min BUN/Creatinine Ratio (10-20) Glucose (70-99(Fasting)) mg/dl Calcium (8.6-10.3) mg/dl Total Bilirubin (0.2-1.0) mg/dl AST (13-39) U/L ALT (7-52) U/L Alkaline Phosphatase (34-104) U/L Total Protein (6.0-8.3) gm/dl Albumin (3.4-5.0) gm/dl Globulin (2.5-4.0) gm/dl Albumin/Globulin Ratio (0.9-2) Lipase (11-82) U/L Stl C. cayetanensis PCR Not Detected (NotDetected) Stool Rotavirus A PCR Not Detected (NotDetected) Stl Adenov F 40/41 PCR Not Detected (NotDetected) Stool Astrovirus (PCR) Not Detected (NotDetected) Stool Campylobacter PCR Not Detected (NotDetected) Stl C. diff Tox B Gene Positive Cdiff Gene H (Neg) Stl C.difficile Tox A&B Negative Cdiff Toxin (Negative) Stool Cryptosporidium PCR Not Detected (NotDetected) Stl E.coli Shiga Tox PCR DETECTED A* (NotDetected) Stool E coli O157 PCR Not Detected (NotDetected) Stl Enterotoxigenic E PCR Not Detected (NotDetected) Stool EAEC (PCR) Not Detected (NotDetected) Stl E. histolytica PCR Not Detected (NotDetected) Stool Giardia Lamblia PCR Not Detected (NotDetected) Stool Salmonella PCR Not Detected (NotDetected) Stool Sapovirus (PCR) Not Detected (NotDetected) Stl P. shigelloides PCR Not Detected (NotDetected) Stl Shigella/EIEC PCR Not Detected (NotDetected) St Y.enterocolitica PCR Not Detected (NotDetected) Stool Vibrio (PCR) Not Detected (NotDetected) Stl Vibrio cholerae PCR Not Detected (NotDetected) Stl Norovirus GI/GII PCR Not Detected (NotDetected) SARS-CoV-2, RNA, NAAT (NEGATIVE) Blood Type Antibody Screen 03/07/23 03/08/23 03/08/23 Range/Units 19:01 00:23 00:23 WBC (4.8-10.8) K/ul RBC (4.20-5.40) M/uL Hgb 14.6 (12.0-16.0) g/dl Hct 41.6 (37.0-47.0) % MCV (80.0-100.0) fL MCH (25.0-34.0) pg MCHC (32.0-36.0) g/dL RDW Std Deviation (36.4-46.3) fL RDW Coeff of Noé (11.5-14.5) % Plt Count (130-400) K/uL MPV (9.4-12.4) fL Immature Gran % (Auto) % Neut % (Auto) % Lymph % (Auto) % Butts % (Auto) % Eos % (Auto) % Baso % (Auto) % Neut # (Auto) (1.40-6.50) K/uL Lymph # (Auto) (1.2-3.4) K/uL Butts # (Auto) (0.11-0.59) K/uL Eos # (Auto) (0-0.50) K/uL Baso # (Auto) (0-0.2) K/uL Immature Gran # (Auto) (0.01-0.20) K/uL Sodium 136 (136-145) mmol/L Potassium 3.8 (3.5-5.1) mmol/L Chloride 102 (98-107) mmol/L Carbon Dioxide 23 (21-32) mmol/L Anion Gap 11 (3-11) BUN 11 (6-23) mg/dl Creatinine 0.77 (0.6-1.2) mg/dl Est Cr Clr Drug Dosing 99.5 ml/min Est GFR ( Amer) 120.9 ml/min Est GFR (Non-Af Amer) 104.3 ml/min BUN/Creatinine Ratio 14.3 (10-20) Glucose 95 (70-99(Fasting)) mg/dl Calcium 9.7 (8.6-10.3) mg/dl Total Bilirubin 0.7 (0.2-1.0) mg/dl AST 21 (13-39) U/L ALT 11 (7-52) U/L Alkaline Phosphatase 45 (34-104) U/L Total Protein 7.7 (6.0-8.3) gm/dl Albumin 4.7 (3.4-5.0) gm/dl Globulin 3.0 (2.5-4.0) gm/dl Albumin/Globulin Ratio 1.6 (0.9-2) Lipase 11 (11-82) U/L Stl C. cayetanensis PCR (NotDetected) Stool Rotavirus A PCR (NotDetected) Stl Adenov F 40/41 PCR (NotDetected) Stool Astrovirus (PCR) (NotDetected) Stool Campylobacter PCR (NotDetected) Stl C. diff Tox B Gene (Neg) Stl C.difficile Tox A&B (Negative) Stool Cryptosporidium PCR (NotDetected) Stl E.coli Shiga Tox PCR (NotDetected) Stool E coli O157 PCR (NotDetected) Stl Enterotoxigenic E PCR (NotDetected) Stool EAEC (PCR) (NotDetected) Stl E. histolytica PCR (NotDetected) Stool Giardia Lamblia PCR (NotDetected) Stool Salmonella PCR (NotDetected) Stool Sapovirus (PCR) (NotDetected) Stl P. shigelloides PCR (NotDetected) Stl Shigella/EIEC PCR (NotDetected) St Y.enterocolitica PCR (NotDetected) Stool Vibrio (PCR) (NotDetected) Stl Vibrio cholerae PCR (NotDetected) Stl Norovirus GI/GII PCR (NotDetected) SARS-CoV-2, RNA, NAAT (NEGATIVE) Blood Type A Positive Antibody Screen NEGATIVE 03/08/23 Range/Units 00:36 WBC (4.8-10.8) K/ul RBC (4.20-5.40) M/uL Hgb (12.0-16.0) g/dl Hct (37.0-47.0) % MCV (80.0-100.0) fL MCH (25.0-34.0) pg MCHC (32.0-36.0) g/dL RDW Std Deviation (36.4-46.3) fL RDW Coeff of Noé (11.5-14.5) % Plt Count (130-400) K/uL MPV (9.4-12.4) fL Immature Gran % (Auto) % Neut % (Auto) % Lymph % (Auto) % Butts % (Auto) % Eos % (Auto) % Baso % (Auto) % Neut # (Auto) (1.40-6.50) K/uL Lymph # (Auto) (1.2-3.4) K/uL Butts # (Auto) (0.11-0.59) K/uL Eos # (Auto) (0-0.50) K/uL Baso # (Auto) (0-0.2) K/uL Immature Gran # (Auto) (0.01-0.20) K/uL Sodium (136-145) mmol/L Potassium (3.5-5.1) mmol/L Chloride (98-107) mmol/L Carbon Dioxide (21-32) mmol/L Anion Gap (3-11) BUN (6-23) mg/dl Creatinine (0.6-1.2) mg/dl Est Cr Clr Drug Dosing ml/min Est GFR ( Amer) ml/min Est GFR (Non-Af Amer) ml/min BUN/Creatinine Ratio (10-20) Glucose (70-99(Fasting)) mg/dl Calcium (8.6-10.3) mg/dl Total Bilirubin (0.2-1.0) mg/dl AST (13-39) U/L ALT (7-52) U/L Alkaline Phosphatase (34-104) U/L Total Protein (6.0-8.3) gm/dl Albumin (3.4-5.0) gm/dl Globulin (2.5-4.0) gm/dl Albumin/Globulin Ratio (0.9-2) Lipase (11-82) U/L Stl C. cayetanensis PCR (NotDetected) Stool Rotavirus A PCR (NotDetected) Stl Adenov F 40/41 PCR (NotDetected) Stool Astrovirus (PCR) (NotDetected) Stool Campylobacter PCR (NotDetected) Stl C. diff Tox B Gene (Neg) Stl C.difficile Tox A&B (Negative) Stool Cryptosporidium PCR (NotDetected) Stl E.coli Shiga Tox PCR (NotDetected) Stool E coli O157 PCR (NotDetected) Stl Enterotoxigenic E PCR (NotDetected) Stool EAEC (PCR) (NotDetected) Stl E. histolytica PCR (NotDetected) Stool Giardia Lamblia PCR (NotDetected) Stool Salmonella PCR (NotDetected) Stool Sapovirus (PCR) (NotDetected) Stl P. shigelloides PCR (NotDetected) Stl Shigella/EIEC PCR (NotDetected) St Y.enterocolitica PCR (NotDetected) Stool Vibrio (PCR) (NotDetected) Stl Vibrio cholerae PCR (NotDetected) Stl Norovirus GI/GII PCR (NotDetected) SARS-CoV-2, RNA, NAAT NEGATIVE (NEGATIVE) Blood Type Antibody Screen Administered Medications Potassium Chloride/Sodium Chloride (Normal Saline W/20 Meq Kcl) 20 meq in 1,000 mls @ 80 mls/hr IV .[id number] STA; Protocol Stop: 03/08/23 11:28 Last Admin: 03/07/23 23:40 Dose: 80 mls/hr Documented By: CRISTHIAN Discontinued Medications Hydroxyzine HCl (Hydroxyzine Hcl 25 Mg Tab) 25 mg PO NOW STA Stop: 03/07/23 23:43 Last Admin: 03/08/23 00:41 Dose: 25 mg Documented By: PRINCESS Sodium Chloride (Nss 1000ml) 1,000 mls @ 999 mls/hr IV .Q1H1M CATY Stop: 03/07/23 19:45 Last Infusion: 03/07/23 20:33 Dose: 0 mls/hr Documented By: Admin: 03/07/23 19:17 Dose: 999 mls/hr Documented By: CRISTHIAN Ioversol (Optiray 320 100ml) 94 ml IV ONCE ONE Stop: 03/07/23 22:41 Last Admin: 03/07/23 22:40 Dose: 94 ml Documented By: DIGNA Ketorolac Tromethamine (Ketorolac Tromethamine 15 Mg/Ml Vial) 15 mg IV NOW STA Stop: 03/07/23 23:44 Last Admin: 03/08/23 00:41 Dose: 15 mg Documented By: PRINCESS Montelukast Sodium (Montelukast Sodium 10 Mg Tablet) 10 mg PO NOW STA Stop: 03/07/23 23:44 Last Admin: 03/08/23 00:44 Dose: 10 mg Documented By: PRINCESS Ondansetron HCl (Ondansetron Inj 2 Mg/Ml 2 Ml Vial) 4 mg IV NOW STA Stop: 03/07/23 18:45 Last Admin: 03/07/23 19:17 Dose: 4 mg Documented By: CRISTHIAN Sertraline HCl (Sertraline Hcl 100 Mg Tablet) 100 mg PO NOW STA Stop: 03/07/23 23:43 Last Admin: 03/08/23 00:41 Dose: 100 mg Documented By: PRINCESS Imaging Data Radiologist's Impression: Abdomen/Pelvis CT 03/07/23 22:22 Exam(s): CT ABDOMEN + PELVIS With Contrast IV Amt: 94 ml optiray 320 EXAM: CT Abdomen and Pelvis With Intravenous Contrast CLINICAL HISTORY: Reason for exam: LGIB pain. TECHNIQUE: Axial computed tomography images of the abdomen and pelvis with intravenous contrast. Automated exposure control was utilized for the study. A dose lowering technique was utilized adhering to the principles of ALARA. CONTRAST: Patient received 94 ml optiray 320 of IV contrast COMPARISON: No relevant prior studies available. FINDINGS: ABDOMEN: Liver: Unremarkable. Gallbladder and bile ducts: Unremarkable. Pancreas: Unremarkable. Spleen: Unremarkable. Adrenals: Unremarkable. Kidneys and ureters: Unremarkable. No obstructing stones. No hydronephrosis. Stomach and bowel: Colonic mucosal thickening most pronounced within the right hemicolon consistent with nonspecific infectious or inflammatory colitis. PELVIS: Appendix: No findings to suggest acute appendicitis. Bladder: Unremarkable. Reproductive: Unremarkable as visualized. ABDOMEN and PELVIS: Intraperitoneal space: Small amount of free fluid in the pelvis. No abscess. No free air. Bones/joints: No acute fracture. Soft tissues: Unremarkable. Vasculature: Unremarkable. Lymph nodes: Unremarkable. IMPRESSION: Colonic mucosal thickening most pronounced within the right hemicolon consistent with nonspecific infectious or inflammatory colitis. Electronically signed by: Wilson Pompa MD 03/07/23 23:43 PM Discharge Plan Visit Data Chief Complaint: Bleeding Stated Complaint: BLOOD IN STOOL ED Provider: Madonna Ng Discharge Problem: Shiga toxin-producing Escherichia coli infection, Hematochezia Forms Stand Alone Forms: My [facility] [place] Prescriptions Prescriptions: No Action montelukast 10 mg tablet 10 mg PO HS Qty: 90 1RF levalbuterol HCl 1.25 mg/3 mL solution for nebulization 1.25 mg inhalation Q4H PRN (Reason: shortness of breath or wheezing) Qty: 75 5RF levalbuterol tartrate [Xopenex HFA] 45 mcg/actuation HFA aerosol inhaler 2 inh inhalation Q6H PRN (Reason: shortness of breath or wheezing) Qty: 15 3RF Fasenra 30 mg/mL syringe 30 mg subcut .COMPLEX Qty: 1 6RF Rx Instructions: INJECT 30MG SQ EVERY 8 WEEKS APPROVEDTHRU MEDICAL BENEFIT GOOD 09/25/22-09/24/23 [id number] albuterol sulfate 90 mcg/actuation HFA aerosol inhaler 2 puff INHALATION Q4H PRN (Reason: Shortness Of Breath Or Wheezing) Qty: 8.5 2RF Trelegy Ellipta 200-62.5-25 mcg blister with device 1 inh inhalation DAILY Qty: 3 3RF sertraline 100 mg tablet 100 mg PO DAILY triamcinolone acetonide [Nasacort Allergy] 55 mcg Aerosol,[place] 2 spray INTRANASAL DAILY PRN (Reason: allergies) Rx Instructions: administer into each nostril hydroxyzine HCl 25 mg tablet 25 mg PO DAILY PRN (Reason: Anxiety) Referrals Referrals: Mallika Galan MD [Physician] -
[2023-03-07 19:18] LABS: Basophils # (auto) 0.02 K/uL (0-0.2); Basophils % (auto) 0.1 %; Hematocrit (blood only) 44.8 % (37.0-47.0); Hemoglobin 15.6 g/dl (12.0-16.0); Immature Granulocytes # (auto) 0.03 K/uL (0.01-0.20); Immature Granulocytes % (auto) 0.2 %; Lymphocytes # (auto) 0.98 K/uL (1.2-3.4); Lymphocytes % (auto) 7.1 %; Mean Corpuscular Hemoglobin 30.8 pg (25.0-34.0); Mean Corpuscular Hgb Conc 34.8 g/dL (32.0-36.0); Mean Corpuscular Volume 88.4 fL (80.0-100.0); Mean Platelet Volume 10.5 fL (9.4-12.4); Monocytes # (auto) 0.78 K/uL (0.11-0.59); Monocytes % (auto) 5.6 %; Neutrophils # (auto) 12.04 K/uL (1.40-6.50); Platelet Count 227 K/uL (130-400); RDW Coefficient of Variation 12.8 % (11.5-14.5); RDW Standard Deviation 41.4 fL (36.4-46.3); Red Blood Count 5.07 M/uL (4.20-5.40); White Blood Count 13.85 K/ul (4.8-10.8)
[2023-03-07 19:38] LABS: Albumin Globulin Ratio 1.6 (0.9-2); Albumin Level 4.7 gm/dl (3.4-5.0); BUN Creatinine Ratio 14.3 (10-20); Bilirubin,Total 0.7 mg/dl (0.2-1.0); Calcium 9.7 mg/dl (8.6-10.3); Creatinine Clr Calc Pharmacy 99.5 ml/min; Est GFR (African American) 120.9 ml/min; Est GFR (Non-African American) 104.3 ml/min; Potassium 3.8 mmol/L (3.5-5.1); Total Protein 7.7 gm/dl (6.0-8.3)
[2023-03-07 20:41] LABS: Adenovirus F 40/41 PCR Not Detected (NotDetected); Astrovirus PCR Not Detected (NotDetected); Campylobacter PCR Not Detected (NotDetected); Cryptosporidium PCR Not Detected (NotDetected); Cyclospora cayetanensis PCR Not Detected (NotDetected); E.coli O157 PCR Not Detected (NotDetected); Entamoeba histolytica PCR Not Detected (NotDetected); Enteroaggregative E.coli(EAEC) Not Detected (NotDetected); Enterotoxigenic E.coli (ETEC) Not Detected (NotDetected); Giardia lamblia PCR Not Detected (NotDetected); Norovirus GI/GII PCR Not Detected (NotDetected); Plesiomonas shigelloides PCR Not Detected (NotDetected); Rotavirus A PCR Not Detected (NotDetected); Salmonella PCR Not Detected (NotDetected); Sapovirus PCR Not Detected (NotDetected); Shigella/Enteroinvasive E.coli Not Detected (NotDetected); Vibrio cholerae PCR Not Detected (NotDetected); Vibrio species PCR Not Detected (NotDetected); Yersinia enterocolitica PCR Not Detected (NotDetected)
[2023-03-07 20:50] LABS: Shiga-like Toxin E.coli (STEC) DETECTED (NotDetected)
[2023-03-07 21:17] LABS: Cdiff Antigen Negative; Cdiff Toxin A+B Negative Cdiff Toxin (Negative); Cdiff Toxin B Gene (2yr or >) Positive Cdiff Gene (Neg)
[2023-03-07] MEDS ORDERED: OPTIRAY 320 100ml IV ONE (22:40)
[2023-03-07] MEDS ORDERED: NSS + 20MEQ KCL 20 MEQ/1,000 ML BAG IV STA (22:59)
[2023-03-07] MEDS ORDERED: SERTRALINE HCL 100 MG TABLET PO STA (23:42)
[2023-03-07] MEDS ORDERED: hydrOXYzine HCl 25 MG TAB PO STA (23:42)
--- NOTE | 2023-03-07 23:42 | History & Physical Report ---
Date of Service March 07, 2023 Assessment & Plan (1) Colitis: Plan: Hemorrhagic colitis secondary to Shiga toxin producing enterotoxigenic E. coli Patient currently hemodynamically stable. bronchial asthma/allergic rhinitis, symptoms at baseline anxiety/mood disorder, patient admits to increased anxiety due to illness past tobacco abuse Medical telemetry Analgesia, IVF clear liquid diet supportive management for ETEC Hold off on antibiotics given potential for HUS GI consult if with worsening hematochezia Follow H&H, transfuse PRBC if hemoglobin less than 7 and or for somatic anemia Anxiolytic as needed DVT prophylaxis. SCDs Re: L GIB Full code Text document was generated using [email or web address] voice recognition software. It may contain grammatical or spelling errors. Kindly contact undersigned for clarification of any documentation item in q uestion. History of Present Illness Chief Complaint: Bloody diarrhea Primary Care Provider: Stewart Villa DO History obtained from patient and records. Medical history significant for bronchial asthma, allergic rhinitis, anxiety/mood disorder, past tobacco abuse. Last confinement 2021 under Psychiatry service for depression. 3 days history of watery diarrhea with some abdominal cramping. Worsening abdominal pain and bloody diarrhea noted today. Possible sick contacts at work. No recent out-of-town travel/antibiotic Rx. Patient denies chest pain, SOB. Medical History as above Surgical History : Dental surgery Family History : Heart disease Personal/Social history : Past tobacco abuse, occasional EtOH intake, [employer] employee Allergies Allergy/AdvReac Type Severity Reaction Status Date / Time escitalopram [From Lexapro] AdvReac Unknown Verified 03/07/23 22:28 Home Medications Medication Instructions Recorded Confirmed Type montelukast 10 mg tablet 10 mg PO HS #90 tabs 07/09/22 03/07/23 Rx levalbuterol HCl 1.25 mg/3 mL 1.25 mg (3 mL) inhalation Q4H PRN 09/16/22 03/07/23 Rx solution for nebulization shortness of breath or wheezing #75 mL levalbuterol tartrate 45 2 inh inhalation Q6H PRN shortness 09/16/22 03/07/23 Rx mcg/actuation aerosol inhaler of breath or wheezing #15 grams (Xopenex HFA) benralizumab 30 mg/mL subcutaneous 30 mg subcut .COMPLEX #1 mL 09/28/22 03/07/23 Rx syringe (Fasenra) albuterol sulfate 90 mcg/actuation 2 puff inhalation Q4H PRN 11/13/22 03/07/23 Rx aerosol inhaler Shortness Of Breath Or Wheezing #8.5 grams fluticasone fur. 200 mcg-umeclid 1 inh inhalation DAILY #3 Inhalers 11/13/22 03/07/23 Rx 62.5 mcg-vilant 25 mcg inhalat.powder (Trelegy Ellipta) hydroxyzine HCl 25 mg tablet 25 mg PO DAILY PRN Anxiety 03/07/23 03/07/23 History sertraline 100 mg tablet 100 mg PO DAILY 03/07/23 03/07/23 History triamcinolone acetonide 55 mcg 2 spray intranasal DAILY PRN 03/07/23 03/07/23 History nasal spray aerosol (Nasacort allergies Allergy) Past Med/Surg History Medical History Acute respiratory failure with hypoxia Anxiety and depression Asthma COVID-19 Idiopathic scoliosis Lymphadenopathy, axillary Lymphadenopathy, inguinal Peripheral eosinophilia Recurrent severe major depressive disorder with anxiety Severe persistent asthma Surgical History H/O wisdom tooth extraction Family History Father Dyslipidemia Myxoma of heart Tobacco dependency Other Cancer Diabetes Heart disease Lung disease Denies family history of Asthma Social History Smoking Status: Never smoker Tobacco Type: Cigarettes Cigarettes Per Day: 2; Second Hand Exposure: No; Do You Dip or Chew Tobacco: No; Hx Alcohol Use: No Hx Substance Use: Yes Last Used Substance: Days (ago) Substance Use Type Other:: Medical marijuana Preferred Language: Macedonian Communication Ability: Effective Hearing Ability: Normal Bill Board Poster Required: No Beliefs That Will Affect Care: None marital status: Single Current Living Situation: Significant Other Current Living Situation Comment: Lives with boyfriend current occupational status: employed current occupation: [employer] How many Children do You have: 0 Other Information That Helps Us Care for You: No Feels Safe at Home: Yes Safety Concerns: Feels Safe At This Time Childhood Exposure to Second-Hand Smoke: Yes Diet: regular caffeine: Yes Dental Care, Regularly: Yes Physical Activity Frequency: Daily Seatbelt Use: sometimes Sunscreen Use: Yes Assistive Devices: None Review of Systems Review of Systems: As per HPI, all other systems reviewed and negative Physical Exam Physical Exam: GENERAL: Pleasant, slightly anxious, no respiratory distress SKIN: Normal color, warm HEENT: [place] palpebral conjunctivae, no ptosis, dry buccal mucosa NECK : Supple, no tenderness CHEST : CTA, no tenderness HEART : RRR, no obvious murmurs ABDOMEN: Some distention, hypogastric tenderness EXTREMITIES : No LE swelling/tenderness, no other conspicuous deformities noted NEUROLOGIC : Coherent, no facial asymmetry, no other gross focality Results & Data Results & Data Vital Signs (Past 12 Hours) Vital Signs Temp Pulse Resp BP Pulse Ox O2 Del Method 03/07/23 21:00 82 17 143/83 H 95 Room Air 03/07/23 20:00 82 16 128/71 97 Room Air 03/07/23 19:12 85 03/07/23 19:13 78 17 96 Room Air 03/07/23 18:41 36.8 C 84 20 153/90 H 95 Room Air Laboratory Results Laboratory Results WBC 13.85 K/ul (4.8-10.8) H 03/07/23 19:01 RBC 5.07 M/uL (4.20-5.40) 03/07/23 19:01 Hgb 15.6 g/dl (12.0-16.0) 03/07/23 19:01 Hct 44.8 % (37.0-47.0) 03/07/23 19:01 MCV 88.4 fL (80.0-100.0) 03/07/23 19:01 MCH 30.8 pg (25.0-34.0) 03/07/23 19:01 MCHC 34.8 g/dL (32.0-36.0) 03/07/23 19:01 RDW Std Deviation 41.4 fL (36.4-46.3) 03/07/23 19:01 RDW Coeff of Noé 12.8 % (11.5-14.5) 03/07/23 19:01 Plt Count 227 K/uL (130-400) 03/07/23 19:01 MPV 10.5 fL (9.4-12.4) 03/07/23 19:01 Immature Gran % (Auto) 0.2 % 03/07/23 19:01 Neut % (Auto) 87.0 % 03/07/23 19:01 Lymph % (Auto) 7.1 % 03/07/23 19:01 Haines % (Auto) 5.6 % 03/07/23 19:01 Eos % (Auto) 0.0 % 03/07/23 19:01 Baso % (Auto) 0.1 % 03/07/23 19:01 Neut # (Auto) 12.04 K/uL (1.40-6.50) H 03/07/23 19:01 Lymph # (Auto) 0.98 K/uL (1.2-3.4) L 03/07/23 19:01 Haines # (Auto) 0.78 K/uL (0.11-0.59) H 03/07/23 19:01 Eos # (Auto) 0.00 K/uL (0-0.50) 03/07/23 19:01 Baso # (Auto) 0.02 K/uL (0-0.2) 03/07/23 19:01 Immature Gran # (Auto) 0.03 K/uL (0.01-0.20) 03/07/23 19:01 Sodium 136 mmol/L (136-145) 03/07/23 19:01 Potassium 3.8 mmol/L (3.5-5.1) 03/07/23 19:01 Chloride 102 mmol/L (98-107) 03/07/23 19:01 Carbon Dioxide 23 mmol/L (21-32) 03/07/23 19:01 Anion Gap 11 (3-11) 03/07/23 19:01 BUN 11 mg/dl (6-23) 03/07/23 19:01 Creatinine 0.77 mg/dl (0.6-1.2) 03/07/23 19:01 Est Cr Clr Drug Dosing 99.5 ml/min 03/07/23 19:01 Est GFR ( Amer) 120.9 ml/min 03/07/23 19:01 Est GFR (Non-Af Amer) 104.3 ml/min 03/07/23 19:01 BUN/Creatinine Ratio 14.3 (10-20) 03/07/23 19:01 Glucose 95 mg/dl (70-99(Fasting)) 03/07/23 19:01 Calcium 9.7 mg/dl (8.6-10.3) 03/07/23 19:01 Total Bilirubin 0.7 mg/dl (0.2-1.0) 03/07/23 19:01 AST 21 U/L (13-39) 03/07/23 19:01 ALT 11 U/L (7-52) 03/07/23 19:01 Alkaline Phosphatase 45 U/L (34-104) 03/07/23 19:01 Total Protein 7.7 gm/dl (6.0-8.3) 03/07/23 19:01 Albumin 4.7 gm/dl (3.4-5.0) 03/07/23 19:01 Globulin 3.0 gm/dl (2.5-4.0) 03/07/23 19:01 Albumin/Globulin Ratio 1.6 (0.9-2) 03/07/23 19:01 Lipase 11 U/L (11-82) 03/07/23 19:01 Stl C. cayetanensis PCR Not Detected (NotDetected) 03/07/23 19:00 Stool Rotavirus A PCR Not Detected (NotDetected) 03/07/23 19:00 Stl Adenov F 40/41 PCR Not Detected (NotDetected) 03/07/23 19:00 Stool Astrovirus (PCR) Not Detected (NotDetected) 03/07/23 19:00 Stool Campylobacter PCR Not Detected (NotDetected) 03/07/23 19:00 Stl C. diff Tox B Gene Positive Cdiff Gene (Neg) H 03/07/23 19:00 Stl C.difficile Tox A&B Negative Cdiff Toxin (Negative) 03/07/23 19:00 Stool Cryptosporidium PCR Not Detected (NotDetected) 03/07/23 19:00 Stl E.coli Shiga Tox PCR DETECTED (NotDetected) A* 03/07/23 19:00 Stool E coli O157 PCR Not Detected (NotDetected) 03/07/23 19:00 Stl Enterotoxigenic E PCR Not Detected (NotDetected) 03/07/23 19:00 Stool EAEC (PCR) Not Detected (NotDetected) 03/07/23 19:00 Stl E. histolytica PCR Not Detected (NotDetected) 03/07/23 19:00 Stool Giardia Lamblia PCR Not Detected (NotDetected) 03/07/23 19:00 Stool Salmonella PCR Not Detected (NotDetected) 03/07/23 19:00 Stool Sapovirus (PCR) Not Detected (NotDetected) 03/07/23 19:00 Stl P. shigelloides PCR Not Detected (NotDetected) 03/07/23 19:00 Stl Shigella/EIEC PCR Not Detected (NotDetected) 03/07/23 19:00 St Y.enterocolitica PCR Not Detected (NotDetected) 03/07/23 19:00 Stool Vibrio (PCR) Not Detected (NotDetected) 03/07/23 19:00 Stl Vibrio cholerae PCR Not Detected (NotDetected) 03/07/23 19:00 Stl Norovirus GI/GII PCR Not Detected (NotDetected) 03/07/23 19:[address] abdomen pelvis: Colonic mucosal thickening most pronounced within the right hemicolon consistent with nonspecific infectious or inflammatory colitis.
[2023-03-07] MEDS ORDERED: KETOROLAC TROMETHAMINE 15 MG/ML VIAL IV STA (23:43)
[2023-03-07] MEDS ORDERED: MONTELUKAST SODIUM 10 MG TABLET PO STA (23:43)
--- NOTE | 2023-03-07 23:43 | CT Scan Report ---
Exam(s): CT ABDOMEN + PELVIS With Contrast IV Amt: 94 ml optiray 320 EXAM: CT Abdomen and Pelvis With Intravenous Contrast CLINICAL HISTORY: Reason for exam: LGIB pain. TECHNIQUE: Axial computed tomography images of the abdomen and pelvis with intravenous contrast. Automated exposure control was utilized for the study. A dose lowering technique was utilized adhering to the principles of ALARA. CONTRAST: Patient received 94 ml optiray 320 of IV contrast COMPARISON: No relevant prior studies available. FINDINGS: ABDOMEN: Liver: Unremarkable. Gallbladder and bile ducts: Unremarkable. Pancreas: Unremarkable. Spleen: Unremarkable. Adrenals: Unremarkable. Kidneys and ureters: Unremarkable. No obstructing stones. No hydronephrosis. Stomach and bowel: Colonic mucosal thickening most pronounced within the right hemicolon consistent with nonspecific infectious or inflammatory colitis. PELVIS: Appendix: No findings to suggest acute appendicitis. Bladder: Unremarkable. Reproductive: Unremarkable as visualized. ABDOMEN and PELVIS: Intraperitoneal space: Small amount of free fluid in the pelvis. No abscess. No free air. Bones/joints: No acute fracture. Soft tissues: Unremarkable. Vasculature: Unremarkable. Lymph nodes: Unremarkable. IMPRESSION: Colonic mucosal thickening most pronounced within the right hemicolon consistent with nonspecific infectious or inflammatory colitis. Electronically signed by: Wilson Pompa MD 03/07/23 23:43 PM
[2023-03-07] MEDS ORDERED: ACETAMINOPHEN 325 MG TAB PO PRN (23:48)
[2023-03-08 00:50] LABS: Hematocrit (blood only) 41.6 % (37.0-47.0); Hemoglobin 14.6 g/dl (12.0-16.0)
[2023-03-08] MEDS: LORazepam 0.5 MG TAB PO PRN ×2 (02:13→23:14)
[2023-03-08] MEDS ORDERED: cloNIDine HCL 0.1 MG TAB PO STA (02:30)
[2023-03-08] MEDS ORDERED: LEVALBUTEROL 1.25 MG/3 ML NEB INH PRN (03:57)
[2023-03-08] MEDS ORDERED: hydrOXYzine HCl 25 MG TAB PO PRN (03:57)
[2023-03-08 05:07] LABS: Appearance Urine Clear (Clear); Bacteria Urine Automated 2+ (Negative); Bilirubin Urine Negative (Negative); Blood Urine 1+ (Negative); Color Urine Yellow; Epithelial Cell Urine Auto >30 /lpf (0-5); Glucose Urine UA Negative (Negative); Ketones Urine 4+ (Negative); Leukocyte Esterase Urine Negative (Negative); Nitrite Urine Negative (Negative); Protein Urine Trace (Negative); Specific Gravity Urine > 1.045 (1.000-1.030); Urobilinogen Urine Negative (Negative); pH Urine 5.5 (4.5-7.5)
[2023-03-08 05:14] LABS: Pregnancy Test, Urine Negative (Negative)
[2023-03-08 05:27] LABS: Cast Urine Automated 0 /lpf (0-5); RBC Urine Automated 0-4 /hpf (0-4)
[2023-03-08] MEDS: PROMETHAZINE HCL 6.25 MG in SODIUM CHLORIDE 0.9% 50 ML IV PRN (06:09)
[2023-03-08] MEDS: FLUTICASONE PROPIONATE NA SPR 16 GM BTL PRN (06:09)
[2023-03-08] MEDS: traMADol HCL 50 MG TABLET PO PRN (06:43)
[2023-03-08 07:07] LABS: Adenovirus F 40/41 PCR Not Detected (NotDetected); Astrovirus PCR Not Detected (NotDetected); Campylobacter PCR Not Detected (NotDetected); Cryptosporidium PCR Not Detected (NotDetected); Cyclospora cayetanensis PCR Not Detected (NotDetected); E.coli O157 PCR Not Detected (NotDetected); Entamoeba histolytica PCR Not Detected (NotDetected); Enteroaggregative E.coli(EAEC) Not Detected (NotDetected); Enterotoxigenic E.coli (ETEC) Not Detected (NotDetected); Giardia lamblia PCR Not Detected (NotDetected); Norovirus GI/GII PCR Not Detected (NotDetected); Plesiomonas shigelloides PCR Not Detected (NotDetected); Rotavirus A PCR Not Detected (NotDetected); Salmonella PCR Not Detected (NotDetected); Sapovirus PCR Not Detected (NotDetected); Shigella/Enteroinvasive E.coli Not Detected (NotDetected); Vibrio cholerae PCR Not Detected (NotDetected); Vibrio species PCR Not Detected (NotDetected); Yersinia enterocolitica PCR Not Detected (NotDetected)
[2023-03-08 07:10] LABS: Shiga-like Toxin E.coli (STEC) DETECTED (NotDetected)
[2023-03-08 07:38] LABS: Basophils # (auto) 0.01 K/uL (0-0.2); Basophils % (auto) 0.1 %; Hematocrit (blood only) 42.8 % (37.0-47.0); Hemoglobin 14.6 g/dl (12.0-16.0); Immature Granulocytes # (auto) 0.06 K/uL (0.01-0.20); Immature Granulocytes % (auto) 0.5 %; Lymphocytes # (auto) 0.88 K/uL (1.2-3.4); Lymphocytes % (auto) 7.4 %; Mean Corpuscular Hemoglobin 30.5 pg (25.0-34.0); Mean Corpuscular Hgb Conc 34.1 g/dL (32.0-36.0); Mean Corpuscular Volume 89.5 fL (80.0-100.0); Mean Platelet Volume 10.8 fL (9.4-12.4); Monocytes % (auto) 8.4 %; Neutrophils # (auto) 9.89 K/uL (1.40-6.50); Neutrophils % (auto) 83.6 %; Platelet Count 209 K/uL (130-400); RDW Coefficient of Variation 12.9 % (11.5-14.5); RDW Standard Deviation 42.7 fL (36.4-46.3); Red Blood Count 4.78 M/uL (4.20-5.40); White Blood Count 11.84 K/ul (4.8-10.8)
[2023-03-08 07:54] LABS: BUN Creatinine Ratio 14.5 (10-20); Calcium 8.6 mg/dl (8.6-10.3); Creatinine Clr Calc Pharmacy 123.8 ml/min; Est GFR (African American) 141.2 ml/min; Est GFR (Non-African American) 121.9 ml/min; Potassium 3.8 mmol/L (3.5-5.1)
[2023-03-08] MEDS ORDERED: NON-FORMULARY MEDICATION (Fluticasone-Umeclidin-Vilanter [Trelegy Ellipta] 200-62.5-25 mcg INH SCH (09:00)
[2023-03-08] MEDS: LORazepam 2 MG/1 ML VIAL IV PRN (09:01)
[2023-03-08] MEDS: FLUTICASONE FUROATE 200MCG 14 PUFFS/INHALER INH SCH (09:02)
[2023-03-08] MEDS: UMECLIDINIUM/VILANTEROL 62.5/25MCG 7 PUFFS/INHALER INH SCH (09:03)
[2023-03-08] MEDS: SERTRALINE HCL 100 MG TABLET PO SCH (09:03)
[2023-03-08] MEDS: METOCLOPRAMIDE HCL INJ 5 MG/ML 2 ML VIAL IV PRN ×3 (10:05→22:32)
[2023-03-08] MEDS: LACTATED RINGER'S 1,000 ML IV SCH ×2 (10:05→20:31)
[2023-03-08] MEDS: KETOROLAC TROMETHAMINE 15 MG/ML VIAL IV PRN ×3 (10:11→22:32)
--- NOTE | 2023-03-08 14:32 | Hospitalist Progress Note ---
Date of Service March 08, 2023 Assessment & Plan (1) Shiga toxin-producing Escherichia coli infection: (2) Eosinophilic asthma: Plan 27-year-old female with history of eosinophilic asthma presented to ED with 3 days of watery diarrhea and abdominal cramps followed by bloody diarrhea and found to have STEC infection. She works at [employer] and many employees sick at work with similar symptoms. Shiga toxin producing E. coli infection-stool culture positive for STEC, no O157:H7. Symptomatic treatment with ivf, antiemetics etc. I have asked RN to contact infection control to report to [facility]. Eosinophilic asthma- on [id number] infusion. Symptoms controlled. No issues cu rrently. On singulair, anoro ellipta, arnuity ellipta. Anxiety- on zoloft DVT ppx- SCDs, ambuation. Consider sc heparin if bloody BM subsides. Dispo- Pending symptomatic improvement Admission and Anticipated Discharge Date Admission Date: March 07, 2023 Subjective Patient was seen and examined at bedside. She is somewhat feeling better. No fever, chills, chest pain, shortness of breath. No vomiting today. Still having intermittent cramps. She states she has informed her workplace regarding the outbreak. Review of Systems Review of Systems: All systems reviewed & are unremarkable except as noted in Subjective Physical Exam Physical Exam: General: Lying comfortably in bed, not in distress, on room air HEENT: EOMI, CASSY, MMM Chest: Clear breath sounds bilaterally, no wheezes or crackles CVS: Regular rate and rhythm, normal heart sounds, no murmur Abdomen: Soft, mild tender, not distended, normal bowel sounds Neuro: Awake, alert, oriented, conversing well, non focal Extremities: No cyanosis, clubbing or edema Results & Data Results & Data Vital Signs (Past 12 Hours) Vital Signs Temp Pulse Pulse Resp BP Pulse Ox O2 Del Method 03/08/23 12:23 37.2 C 95 H 18 134/79 96 Room Air 03/08/23 07:54 37.0 C 84 20 121/72 94 Room Air 03/08/23 07:10 101 H 03/08/23 03:55 93 H 03/08/23 03:57 36.6 C 91 H 18 138/79 95 Room Air Laboratory Results Short CBC 03/07/23 03/08/23 03/08/23 Range/Units 19:01 00:23 06:50 WBC 13.85 H 11.84 H (4.8-10.8) K/ul Hgb 15.6 14.6 14.6 (12.0-16.0) g/dl Hct 44.8 41.6 42.8 (37.0-47.0) % Plt Count 227 209 (130-400) K/uL BMP 03/07/23 03/08/23 19:01 06:50 Sodium 136 136 Potassium 3.8 3.8 Chloride 102 106 Carbon Dioxide 23 20 L BUN 11 9 Creatinine 0.77 0.62 Glucose 95 103 H Calcium 9.7 8.6 Liver Function 03/07/23 Range/Units 19:01 Total Bilirubin 0.7 (0.2-1.0) mg/dl AST 21 (13-39) U/L ALT 11 (7-52) U/L Alkaline Phosphatase 45 (34-104) U/L Albumin 4.7 (3.4-5.0) gm/dl Urine 03/08/23 Range/Units 04:56 Urine Color Yellow Urine Appearance Clear (Clear) Urine pH 5.5 (4.5-7.5) Ur Specific Slemp > 1.045 H (1.000-1.030) Urine Protein Trace H (Negative) Urine Glucose (UA) Negative (Negative) Medications Administered Current Inpatient Medications Acetaminophen (Acetaminophen 325 Mg Tab) 650 mg PO Q6H PRN PRN Reason: Fever/Pain Stop: 04/06/23 23:47 Fluticasone Furoate (Fluticasone Furoate 200mcg 14 Puffs/Inhaler) 1 puffs INH DAILY CATY Stop: 04/07/23 08:59 Last Admin: 03/08/23 09:02 Dose: 1 puffs Fluticasone Propionate (Fluticasone Propionate Na Spr 16 Gm Btl) 2 sprays NA DAILY PRN PRN Reason: allergies Stop: 04/07/23 03:56 Last Admin: 03/08/23 06:09 Dose: 2 sprays Hydroxyzine HCl (Hydroxyzine Hcl 25 Mg Tab) 25 mg PO QID PRN PRN Reason: Anxiety Stop: 04/07/23 03:56 Promethazine HCl 6.25 mg/ (Sodium Chloride) 50.25 mls @ 201 mls/hr IV Q6H PRN PRN Reason: Nausea And Vomiting Stop: 04/06/23 23:47 Last Infusion: 03/08/23 06:26 Dose: Infused Lactated Ringer's (Lr) 1,000 mls @ 100 mls/hr IV .Q10H CATY Stop: 04/07/23 09:44 Last Admin: 03/08/23 10:05 Dose: 100 mls/hr Ketorolac Tromethamine (Ketorolac Tromethamine 15 Mg/Ml Vial) 15 mg IV Q6H PRN PRN Reason: Pain Stop: 03/12/23 23:47 Last Admin: 03/08/23 10:11 Dose: 15 mg Levalbuterol HCl (Levalbuterol 1.25 Mg/3 Ml Neb) 1.25 mg INH Q4H PRN; Protocol PRN Reason: shortness of breath or wheezing Stop: 04/07/23 03:56 Lorazepam (Lorazepam 0.5 Mg Tab) 0.5 mg PO TID PRN PRN Reason: Anxiety Stop: 04/07/23 02:05 Last Admin: 03/08/23 02:13 Dose: 0.5 mg Lorazepam (Lorazepam 2 Mg/1 Ml Vial) 0.5 mg IV Q6H PRN PRN Reason: Anxiety Stop: 04/07/23 02:52 Last Admin: 03/08/23 09:01 Dose: 0.5 mg Metoclopramide HCl (Metoclopramide Hcl Inj 5 Mg/Ml 2 Ml Vial) 10 mg IV Q6H PRN PRN Reason: Nausea Stop: 04/07/23 09:38 Last Admin: 03/08/23 10:05 Dose: 10 mg Montelukast Sodium (Montelukast Sodium 10 Mg Tablet) 10 mg PO HS CATY Stop: 04/07/23 20:59 Sertraline HCl (Sertraline Hcl 100 Mg Tablet) 100 mg PO DAILY CATY Stop: 04/07/23 08:59 Last Admin: 03/08/23 09:03 Dose: 100 mg Tramadol HCl (Tramadol Hcl 50 Mg Tablet) 25 - 50 mg PO Q4H PRN PRN Reason: Pain Stop: 04/06/23 23:47 Last Admin: 03/08/23 06:43 Dose: 25 mg Umeclidinium/Vilanterol (Umeclidinium/Vilanterol 62.5/25mcg 7 Puffs/Inhaler) 1 puffs INH DAILY CATY Stop: 04/07/23 08:59 Last Admin: 03/08/23 09:03 Dose: 1 puffs
[2023-03-08] MEDS: MONTELUKAST SODIUM 10 MG TABLET PO SCH (20:35)
[2023-03-09] MEDS: METOCLOPRAMIDE HCL INJ 5 MG/ML 2 ML VIAL IV PRN ×4 (04:30→20:49)
[2023-03-09] MEDS: KETOROLAC TROMETHAMINE 15 MG/ML VIAL IV PRN ×4 (04:30→20:49)
[2023-03-09] MEDS: LACTATED RINGER'S 1,000 ML IV SCH ×2 (06:09→17:31)
[2023-03-09 06:38] LABS: Hematocrit (blood only) 36.6 % (37.0-47.0); Hemoglobin 12.7 g/dl (12.0-16.0); Mean Corpuscular Hemoglobin 30.9 pg (25.0-34.0); Mean Corpuscular Hgb Conc 34.7 g/dL (32.0-36.0); Mean Corpuscular Volume 89.1 fL (80.0-100.0); Mean Platelet Volume 11.2 fL (9.4-12.4); Platelet Count 188 K/uL (130-400); RDW Coefficient of Variation 12.9 % (11.5-14.5); RDW Standard Deviation 42.3 fL (36.4-46.3); Red Blood Count 4.11 M/uL (4.20-5.40); White Blood Count 11.73 K/ul (4.8-10.8)
[2023-03-09 06:59] LABS: BUN Creatinine Ratio 13.3 (10-20); Calcium 8.4 mg/dl (8.6-10.3); Creatinine Clr Calc Pharmacy 128.2 ml/min; Est GFR (African American) 142.8 ml/min; Est GFR (Non-African American) 123.2 ml/min; Magnesium 1.8 mg/dl (1.7-2.4); Phosphorus 2.1 mg/dl (2.5-4.9); Potassium 3.6 mmol/L (3.5-5.1)
[2023-03-09] MEDS: PROMETHAZINE HCL 6.25 MG in SODIUM CHLORIDE 0.9% 50 ML IV PRN (09:00)
[2023-03-09] MEDS: FLUTICASONE FUROATE 200MCG 14 PUFFS/INHALER INH SCH (09:03)
[2023-03-09] MEDS: SERTRALINE HCL 100 MG TABLET PO SCH (09:03)
[2023-03-09] MEDS: FLUTICASONE PROPIONATE NA SPR 16 GM BTL PRN (09:03)
[2023-03-09] MEDS: UMECLIDINIUM/VILANTEROL 62.5/25MCG 7 PUFFS/INHALER INH SCH (09:03)
[2023-03-09] MEDS: POT PHOSPHATE MONOBASIC W/ SOD TAB PO SCH ×2 (09:03→14:14)
[2023-03-09] MEDS: LORazepam 2 MG/1 ML VIAL IV PRN ×2 (10:16→21:54)
[2023-03-09] MEDS ORDERED: SIMETHICONE 80 MG CHEW PO ONE (11:30)
--- NOTE | 2023-03-09 11:30 | Hospitalist Progress Note ---
Date of Service March 09, 2023 Assessment & Plan (1) Shiga toxin-producing Escherichia coli infection: (2) Eosinophilic asthma: Plan 27-year-old female with history of eosinophilic asthma presented to ED with 3 days of watery diarrhea and abdominal cramps followed by bloody diarrhea and found to have STEC infection. She works at [employer] and many employees sick at work with similar symptoms. Shiga toxin producing E. coli infection-stool culture positive for STEC, no O157:H7, no HUS. Symptomatic treatment with ivf, antiemetics etc. Advance diet as tolerated. Eosinophilic asthma- on u4suore infusion. Symptoms controlled. No issues currently. On singulair, anoro ellipta, arnuity ellipta. Anxiety- on zoloft Hypophosphatemia-repleted, recheck in a.m. DVT ppx- SCDs, subcu Lovenox Dispo- Pending symptomatic improvement. Discontinue telemetry Admission and Anticipated Discharge Date Admission Date: March 07, 2023 Subjective Patient was seen and examined at bedside. Still having some abdominal cramps with diarrhea. No more bloody bowel movements. Intermittent nausea. She had Jell-O this morning and had diarrhea afterwards. No fever, chills, chest pain, shortness of breath, lightheadedness or dizziness Review of Systems Review of Systems: All systems reviewed & are unremarkable except as noted in Subjective Physical Exam Physical Exam: General: Lying comfortably in bed, not in distress, on room air HEENT: EOMI, CASSY, MMM Chest: Clear breath sounds bilaterally, no wheezes or crackles CVS: Regular rate and rhythm, normal heart sounds, no murmur Abdomen: Soft, mild tender, not distended, normal bowel sounds Neuro: Awake, alert, oriented, conversing well, non focal Extremities: No cyanosis, clubbing or edema Results & Data Results & Data Vital Signs (Past 12 Hours) Vital Signs Temp Pulse Pulse Resp BP Pulse Ox O2 Del Method 03/09/23 07:58 36.6 C 77 20 131/86 96 Room Air 03/09/23 07:25 84 03/09/23 04:37 37.6 C H 74 18 117/75 96 Room Air Laboratory Results Short CBC 03/09/23 Range/Units 05:28 WBC 11.73 H (4.8-10.8) K/ul Hgb 12.7 (12.0-16.0) g/dl Hct 36.6 L (37.0-47.0) % Plt Count 188 (130-400) K/uL [facility] 03/09/23 05:28 Sodium 138 Potassium 3.6 Chloride 106 Carbon Dioxide 24 BUN 8 Creatinine 0.60 Glucose 93 Calcium 8.4 L Medications Administered Current Inpatient Medications Acetaminophen (Acetaminophen 325 Mg Tab) 650 mg PO Q6H PRN PRN Reason: Fever/Pain Stop: 04/06/23 23:47 Famotidine (Famotidine 20 Mg Tab) 20 mg PO BID CATY Stop: 04/08/23 11:44 Fluticasone Furoate (Fluticasone Furoate 200mcg 14 Puffs/Inhaler) 1 puffs INH DAILY CATY Stop: 04/07/23 08:59 Last Admin: 03/09/23 09:03 Dose: 1 puffs Fluticasone Propionate (Fluticasone Propionate Na Spr 16 Gm Btl) 2 sprays NA DAILY PRN PRN Reason: allergies Stop: 04/07/23 03:56 Last Admin: 03/09/23 09:03 Dose: 2 sprays Hydroxyzine HCl (Hydroxyzine Hcl 25 Mg Tab) 25 mg PO QID PRN PRN Reason: Anxiety Stop: 04/07/23 03:56 Promethazine HCl 6.25 mg/ (Sodium Chloride) 50.25 mls @ 201 mls/hr IV Q6H PRN PRN Reason: Nausea And Vomiting Stop: 04/06/23 23:47 Last Infusion: 03/09/23 09:23 Dose: Infused Lactated Ringer's (Lr) 1,000 mls @ 100 mls/hr IV .Q10H CATY Stop: 04/07/23 09:44 Last Admin: 03/09/23 06:09 Dose: 100 mls/hr Ketorolac Tromethamine (Ketorolac Tromethamine 15 Mg/Ml Vial) 15 mg IV Q6H PRN PRN Reason: Pain Stop: 03/12/23 23:47 Last Admin: 03/09/23 10:10 Dose: 15 mg Levalbuterol HCl (Levalbuterol 1.25 Mg/3 Ml Neb) 1.25 mg INH Q4H PRN; Protocol PRN Reason: shortness of breath or wheezing Stop: 04/07/23 03:56 Lorazepam (Lorazepam 0.5 Mg Tab) 0.5 mg PO TID PRN PRN Reason: Anxiety Stop: 04/07/23 02:05 Last Admin: 03/08/23 23:14 Dose: 0.5 mg Lorazepam (Lorazepam 2 Mg/1 Ml Vial) 0.5 mg IV Q6H PRN PRN Reason: Anxiety Stop: 04/07/23 02:52 Last Admin: 03/09/23 10:16 Dose: 0.5 mg Metoclopramide HCl (Metoclopramide Hcl Inj 5 Mg/Ml 2 Ml Vial) 10 mg IV Q6H PRN PRN Reason: Nausea Stop: 04/07/23 09:38 Last Admin: 03/09/23 10:16 Dose: 10 mg Montelukast Sodium (Montelukast Sodium 10 Mg Tablet) 10 mg PO HS CATY Stop: 04/07/23 20:59 Last Admin: 03/08/23 20:35 Dose: 10 mg Potassium Phosphate (Pot Phosphate Monobasic W/ Sod Tab) 2 tab PO QID CATY Stop: 04/10/23 08:59 Last Admin: 03/09/23 09:03 Dose: 2 tab Sertraline HCl (Sertraline Hcl 100 Mg Tablet) 100 mg PO DAILY CATY Stop: 04/07/23 08:59 Last Admin: 03/09/23 09:03 Dose: 100 mg Simethicone (Simethicone 80 Mg Chew) 80 mg PO NOW ONE Stop: 03/09/23 11:31 Tramadol HCl (Tramadol Hcl 50 Mg Tablet) 25 - 50 mg PO Q4H PRN PRN Reason: Pain Stop: 04/06/23 23:47 Last Admin: 03/08/23 06:43 Dose: 25 mg Umeclidinium/Vilanterol (Umeclidinium/Vilanterol 62.5/25mcg 7 Puffs/Inhaler) 1 puffs INH DAILY CATY Stop: 04/07/23 08:59 Last Admin: 03/09/23 09:03 Dose: 1 puffs
[2023-03-09] MEDS ORDERED: FAMOTIDINE 20 MG TAB PO SCH (11:45)
[2023-03-09] MEDS ORDERED: POTASSIUM PHOS 3 MMOL/1 ML INFUSION IV ONE (14:14)
[2023-03-09] MEDS ORDERED: POTASSIUM PHOSPHATE 15 MMOL in SODIUM CHLORIDE 0.9% 250 ML IV ONE (14:45)
[2023-03-09] MEDS: D5W AND 1/2NSS 1,000 ML IV SCH (17:25)
[2023-03-09] MEDS: FAMOTIDINE 20 MG in SYRINGE 3 ML IV SCH (20:50)
[2023-03-09] MEDS: MONTELUKAST SODIUM 10 MG TABLET PO SCH (21:43)
[2023-03-10] MEDS: traMADol HCL 50 MG TABLET PO PRN (01:36)
[2023-03-10] MEDS ORDERED: KETOROLAC 30 MG/ML VIAL IV ONE (01:58)
[2023-03-10] MEDS: D5W AND 1/2NSS 1,000 ML IV SCH ×3 (02:46→22:52)
[2023-03-10] MEDS: PROMETHAZINE HCL 6.25 MG in SODIUM CHLORIDE 0.9% 50 ML IV PRN ×2 (02:46→16:17)
[2023-03-10] MEDS: KETOROLAC TROMETHAMINE 15 MG/ML VIAL IV PRN ×3 (07:47→19:56)
[2023-03-10] MEDS: METOCLOPRAMIDE HCL INJ 5 MG/ML 2 ML VIAL IV PRN ×3 (07:47→19:55)
[2023-03-10 08:00] LABS: Hematocrit (blood only) 36.1 % (37.0-47.0); Hemoglobin 12.5 g/dl (12.0-16.0); Mean Corpuscular Hemoglobin 30.8 pg (25.0-34.0); Mean Corpuscular Hgb Conc 34.6 g/dL (32.0-36.0); Mean Corpuscular Volume 88.9 fL (80.0-100.0); Mean Platelet Volume 10.5 fL (9.4-12.4); Platelet Count 184 K/uL (130-400); RDW Coefficient of Variation 12.8 % (11.5-14.5); RDW Standard Deviation 41.9 fL (36.4-46.3); Red Blood Count 4.06 M/uL (4.20-5.40); White Blood Count 13.29 K/ul (4.8-10.8)
[2023-03-10 08:30] LABS: BUN Creatinine Ratio 7.3 (10-20); Calcium 8.2 mg/dl (8.6-10.3); Creatinine Clr Calc Pharmacy 139.8 ml/min; Est GFR (African American) 146.9 ml/min; Est GFR (Non-African American) 126.8 ml/min; Magnesium 1.8 mg/dl (1.7-2.4); Phosphorus 2.9 mg/dl (2.5-4.9); Potassium 3.3 mmol/L (3.5-5.1)
[2023-03-10] MEDS: UMECLIDINIUM/VILANTEROL 62.5/25MCG 7 PUFFS/INHALER INH SCH (09:21)
[2023-03-10] MEDS: FLUTICASONE FUROATE 200MCG 14 PUFFS/INHALER INH SCH (09:21)
[2023-03-10] MEDS: FLUTICASONE PROPIONATE NA SPR 16 GM BTL PRN (09:22)
[2023-03-10] MEDS: FAMOTIDINE 20 MG in SYRINGE 3 ML IV SCH ×2 (09:22→21:39)
[2023-03-10] MEDS: ENOXAPARIN INJ 40 MG/0.4 ML SYR SQ SCH (09:27)
--- NOTE | 2023-03-10 11:44 | Hospitalist Progress Note ---
Date of Service March 10, 2023 Assessment & Plan (1) Shiga toxin-producing Escherichia coli infection: (2) Eosinophilic asthma: Plan 27-year-old female with history of eosinophilic asthma presented to ED with 3 days of watery diarrhea and abdominal cramps followed by bloody diarrhea and found to have STEC infection. She works at [employer] and many employees sick at work with similar symptoms. Shiga toxin producing E. coli infection stool culture positive for STEC, no O157:H7, no HUS. Continue symptomatic treatment with IVF, antiemetics and pain management Will attempt Advancing diet later today Hb is stable in the past 24h. Normal platelet count Monitor fluid output and input Monitor BM Eosinophilic asthma On [id number] infusion. Symptoms controlled. On singulair, anoro ellipta, arnuity ellipta. Anxiety On zoloft DVT ppx- SCDs, subcu Lovenox I spent a total of 45 minutes coordinating, documenting and providing care for this patient excluding time spent in performance of separately billed services Admission and Anticipated Discharge Date Admission Date: March 07, 2023 Subjective Patient seen and examined Still reports nausea Reports diarrhea, greenish yellow. No blood in diarrhea for the past 2 days Reports moderate abd pain Unable to tolerate anything besides water. Vomited yesterday with trial of advancing diet Denied all other complaints Physical Exam Constitutional: + well hydrated; no acute distress Eyes: PERRL, conjunctivae normal, anicteric sclerae ENMT: external ear and nose normal, oropharynx normal Respiratory: normal respiratory effort, lungs clear to auscultation Cardiovascular: RRR, no murmur, no edema Gastrointestinal (Abdomen): Inspection/Auscultation: abdomen normal to inspection and normal bowel sounds; abdomen not distended +abd tenderness (low abd) Musculoskeletal: no cyanosis or clubbing, extremities motor strength 5/5 Neurologic: PERRL, EOMI, accommodation nl, no face palsy, no dysarthria Psychiatric: A+Ox3, euthymic affect Results & Data Results & Data Vital Signs (Past 12 Hours) Vital Signs Temp Pulse Resp BP Pulse Ox O2 Del Method 03/10/23 08:24 36.9 C 86 17 112/67 95 Room Air Laboratory Results Abnormal lab results 03/10/23 03/10/23 Range/Units 07:38 07:38 WBC 13.29 H (4.8-10.8) K/ul RBC 4.06 L (4.20-5.40) M/uL Hct 36.1 L (37.0-47.0) % Potassium 3.3 L (3.5-5.1) mmol/L BUN 4 L (6-23) mg/dl Creatinine 0.55 L (0.6-1.2) mg/dl BUN/Creatinine Ratio 7.3 L (10-20) Glucose 124 H (70-99(Fasting)) mg/dl Calcium 8.2 L (8.6-10.3) mg/dl
[2023-03-10] MEDS ORDERED: POTASSIUM CHLORIDE CRTAB 20 MEQ TABCR PO STA (11:48)
[2023-03-10] MEDS: POTASSIUM CHLORIDE / WTR 10 MEQ/100 ML PLCT IV SCH ×4 (12:43→17:12)
[2023-03-10] MEDS: LORazepam 2 MG/1 ML VIAL IV PRN ×2 (13:37→20:25)
[2023-03-10] MEDS: SERTRALINE HCL 100 MG TABLET PO SCH (14:07)
[2023-03-10] MEDS: MONTELUKAST SODIUM 10 MG TABLET PO SCH (21:40)
[2023-03-11] MEDS ORDERED: KETOROLAC 30 MG/ML VIAL IV ONE (00:25)
[2023-03-11] MEDS ORDERED: LORazepam 2 MG/1 ML VIAL IV STA (00:35)
[2023-03-11] MEDS: PROMETHAZINE HCL 6.25 MG in SODIUM CHLORIDE 0.9% 50 ML IV PRN ×2 (01:05→12:17)
[2023-03-11] MEDS: KETOROLAC TROMETHAMINE 15 MG/ML VIAL IV PRN ×3 (06:48→19:16)
[2023-03-11 07:01] LABS: Hematocrit (blood only) 33.3 % (37.0-47.0); Hemoglobin 11.7 g/dl (12.0-16.0); Mean Corpuscular Hemoglobin 30.8 pg (25.0-34.0); Mean Corpuscular Hgb Conc 35.1 g/dL (32.0-36.0); Mean Corpuscular Volume 87.6 fL (80.0-100.0); Mean Platelet Volume 10.9 fL (9.4-12.4); Platelet Count 160 K/uL (130-400); RDW Coefficient of Variation 12.8 % (11.5-14.5); White Blood Count 8.85 K/ul (4.8-10.8)
[2023-03-11] MEDS: LORazepam 2 MG/1 ML VIAL IV PRN ×2 (07:21→18:31)
[2023-03-11 07:25] LABS: Albumin Globulin Ratio 1.3 (0.9-2); Albumin Level 3.1 gm/dl (3.4-5.0); BUN Creatinine Ratio 3.7 (10-20); Bilirubin,Total 0.4 mg/dl (0.2-1.0); Calcium 7.9 mg/dl (8.6-10.3); Creatinine Clr Calc Pharmacy 142.4 ml/min; Est GFR (African American) 147.8 ml/min; Est GFR (Non-African American) 127.5 ml/min; Globulin 2.4 gm/dl (2.5-4.0); Magnesium 1.8 mg/dl (1.7-2.4); Phosphorus 2.8 mg/dl (2.5-4.9); Potassium 3.1 mmol/L (3.5-5.1); Total Protein 5.5 gm/dl (6.0-8.3)
[2023-03-11] MEDS: METOCLOPRAMIDE HCL INJ 5 MG/ML 2 ML VIAL IV PRN (08:31)
[2023-03-11] MEDS: D5W AND 1/2NSS 1,000 ML IV SCH ×2 (08:34→17:13)
[2023-03-11] MEDS: SERTRALINE HCL 100 MG TABLET PO SCH (08:35)
[2023-03-11] MEDS: ENOXAPARIN INJ 40 MG/0.4 ML SYR SQ SCH (08:35)
[2023-03-11] MEDS: UMECLIDINIUM/VILANTEROL 62.5/25MCG 7 PUFFS/INHALER INH SCH (08:36)
[2023-03-11] MEDS: FLUTICASONE FUROATE 200MCG 14 PUFFS/INHALER INH SCH (08:36)
[2023-03-11] MEDS: FAMOTIDINE 20 MG in SYRINGE 3 ML IV SCH ×2 (08:43→21:02)
[2023-03-11] MEDS ORDERED: POTASSIUM CHLORIDE PWD 20 MEQ PACK PO ONE (12:58)
[2023-03-11] MEDS: POTASSIUM CHLORIDE / WTR 10 MEQ/100 ML PLCT IV SCH ×4 (13:15→17:12)
--- NOTE | 2023-03-11 14:04 | Hospitalist Progress Note ---
Date of Service March 11, 2023 Assessment & Plan (1) Shiga toxin-producing Escherichia coli infection: (2) Eosinophilic asthma: Plan 27-year-old female with history of eosinophilic asthma presented to ED with 3 days of watery diarrhea and abdominal cramps followed by bloody diarrhea and found to have STEC infection. She works at [employer] and many employees sick at work with similar symptoms. Shiga toxin producing E. coli infection stool culture positive for STEC, no O157:H7, no HUS. Continue symptomatic treatment with IVF, antiemetics and pain management Advance diet to more solid food today and monitor Monitor fluid output and input Monitor BM Hypokalemia due to GI losses Replete with IV and po and monitor Eosinophilic asthma On [id number] infusion. Symptoms controlled. On singulair, anoro ellipta, arnuity ellipta. Anxiety On zoloft DVT ppx- SCDs, subcu Lovenox I spent a total of 45 minutes coordinating, documenting and providing care for this patient excluding time spent in performance of separately billed services Admission and Anticipated Discharge Date Admission Date: March 07, 2023 Subjective Patient seen and examined Reports abd pain is improving States that toradol gives more relief Still having diarrhea but stated stool is getting semiformed today. No blood in stool Still has nausea but no vomiting Tolerating clears so far today Denied any other complaints Physical Exam Constitutional: + well hydrated; no acute distress Eyes: PERRL, conjunctivae normal, anicteric sclerae ENMT: external ear and nose normal, oropharynx normal Respiratory: normal respiratory effort, lungs clear to auscultation Cardiovascular: RRR, no murmur, no edema Gastrointestinal (Abdomen): Inspection/Auscultation: abdomen normal to inspection and normal bowel sounds; abdomen not distended Soft, Mild lower abd tenderness, no rebound/guarding Musculoskeletal: no cyanosis or clubbing, extremities motor strength 5/5 Neurologic: PERRL, EOMI, accommodation nl, no face palsy, no dysarthria Psychiatric: A+Ox3, euthymic affect Results & Data Results & Data Vital Signs (Past 12 Hours) Vital Signs Temp Pulse Resp BP Pulse Ox O2 Del Method 03/11/23 07:40 36.7 C 78 16 120/69 96 Room Air Laboratory Results Abnormal lab results 03/11/23 03/11/23 Range/Units 06:30 06:30 RBC 3.80 L (4.20-5.40) M/uL Hgb 11.7 L (12.0-16.0) g/dl Hct 33.3 L (37.0-47.0) % Potassium 3.1 L (3.5-5.1) mmol/L Chloride 108 H (98-107) mmol/L BUN 2 L (6-23) mg/dl Creatinine 0.54 L (0.6-1.2) mg/dl BUN/Creatinine Ratio 3.7 L (10-20) Glucose 109 H (70-99(Fasting)) mg/dl Calcium 7.9 L (8.6-10.3) mg/dl AST 12 L (13-39) U/L Alkaline Phosphatase 29 L (34-104) U/L Total Protein 5.5 L (6.0-8.3) gm/dl Albumin 3.1 L (3.4-5.0) gm/dl Globulin 2.4 L (2.5-4.0) gm/dl
[2023-03-11] MEDS: traMADol HCL 50 MG TABLET PO PRN (14:29)
[2023-03-11] MEDS ORDERED: diphenhydrAMINE Capsule 25 MG CAP PO PRN ×2 (15:45→18:15)
[2023-03-11] MEDS ORDERED: LORATADINE 10 MG TAB PO ONE (18:15)
[2023-03-11] MEDS: MONTELUKAST SODIUM 10 MG TABLET PO SCH (20:56)
[2023-03-12] MEDS: LORazepam 2 MG/1 ML VIAL IV PRN (01:40)
[2023-03-12] MEDS: KETOROLAC TROMETHAMINE 15 MG/ML VIAL IV PRN ×2 (01:40→08:00)
[2023-03-12] MEDS: D5W AND 1/2NSS 1,000 ML IV SCH (05:37)
[2023-03-12 07:43] LABS: Hematocrit (blood only) 33.5 % (37.0-47.0); Hemoglobin 11.9 g/dl (12.0-16.0); Mean Corpuscular Hgb Conc 35.5 g/dL (32.0-36.0); Mean Corpuscular Volume 87.2 fL (80.0-100.0); Mean Platelet Volume 10.8 fL (9.4-12.4); Platelet Count 220 K/uL (130-400); RDW Coefficient of Variation 12.6 % (11.5-14.5); RDW Standard Deviation 40.1 fL (36.4-46.3); Red Blood Count 3.84 M/uL (4.20-5.40); White Blood Count 7.93 K/ul (4.8-10.8)
[2023-03-12] MEDS: METOCLOPRAMIDE HCL INJ 5 MG/ML 2 ML VIAL IV PRN (08:00)
[2023-03-12 08:16] LABS: Anion Gap 5 (3-11); Blood Urea Nitrogen < 2 mg/dl (6-23); Calcium 8.1 mg/dl (8.6-10.3); Carbon Dioxide 27 mmol/L (21-32); Chloride 108 mmol/L (98-107); Creatinine Clr Calc Pharmacy 139.8 ml/min; Est GFR (African American) 146.9 ml/min; Est GFR (Non-African American) 126.8 ml/min; Glucose 105 mg/dl (70-99(Fasting)); Magnesium 1.8 mg/dl (1.7-2.4); Phosphorus 3.6 mg/dl (2.5-4.9); Potassium 3.3 mmol/L (3.5-5.1); Sodium 140 mmol/L (136-145)
[2023-03-12] MEDS ORDERED: POTASSIUM CHLORIDE CRTAB 20 MEQ TABCR PO STA (08:29)
[2023-03-12] MEDS: SERTRALINE HCL 100 MG TABLET PO SCH (08:53)
[2023-03-12] MEDS: ENOXAPARIN INJ 40 MG/0.4 ML SYR SQ SCH (08:53)
[2023-03-12] MEDS: UMECLIDINIUM/VILANTEROL 62.5/25MCG 7 PUFFS/INHALER INH SCH (08:53)
[2023-03-12] MEDS: FLUTICASONE FUROATE 200MCG 14 PUFFS/INHALER INH SCH (08:54)
[2023-03-12] MEDS: FAMOTIDINE 20 MG in SYRINGE 3 ML IV SCH (09:00)
--- NOTE | 2023-03-12 14:23 | Discharge Summary ---
Date of Service March 12, 2023 Admission HPI Per Admitting Provider History obtained from patient and records. Medical history significant for bronchial asthma, allergic rhinitis, anxiety/mood disorder, past tobacco abuse. Last confinement 2021 under Psychiatry service for depression. 3 days history of watery diarrhea with some abdominal cramping. Worsening abdominal pain and bloody diarrhea noted today. Possible sick contacts at work. No recent out-of-town travel/antibiotic Rx. Patient denies chest pain, SOB. Medical History as above Surgical History : Dental surgery Family History : Heart disease Personal/Social history : Past tobacco abuse, occasional EtOH intake, [employer] employee Admission Exam Per Admitting Provider GENERAL: Pleasant, slightly anxious, no respiratory distress SKIN: Normal color, warm HEENT: [place]onda palpebral conjunctivae, no ptosis, dry buccal mucosa NECK : Supple, no tenderness CHEST : CTA, no tenderness HEART : RRR, no obvious murmurs ABDOMEN: Some distention, hypogastric tenderness EXTREMITIES : No LE swelling/tenderness, no other conspicuous deformities noted NEUROLOGIC : Coherent, no facial asymmetry, no other gross focality Principal Diagnosis Shiga toxin producing E. coli infection Colitis Hypokalemia Discharge Exam Constitutional + well hydrated; no acute distress Eyes PERRL, conjunctivae normal, anicteric sclerae ENMT external ear and nose normal, oropharynx normal Respiratory normal respiratory effort, lungs clear to auscultation Cardiovascular RRR, no murmur, no edema Gastrointestinal (Abdomen) Inspection/Auscultation: abdomen normal to inspection and normal bowel sounds; abdomen not distended Percussion/Palpation: abdomen soft; abdomen nontender Musculoskeletal no cyanosis or clubbing, extremities motor strength 5/5 Neurologic PERRL, EOMI, accommodation nl, no face palsy, no dysarthria Psychiatric A+Ox3, euthymic affect Discharge Data Allergies Allergy/AdvReac Type Severity Reaction Status Date / Time tramadol Allergy Swelling Verified 03/11/23 18:44 of Lip/Tongue/Throat escitalopram [From Lexapro] AdvReac Unknown Verified 03/07/23 22:28 Consultations 03/07/23 22:33 ED Decision to Admit Stat Ordered Studies 03/07/23 22:22 CT Abd and Pelvis [CT abd pelvis IV con only] Stat Hospital Course (1) Shiga toxin-producing Escherichia coli infection: Plan 27-year-old female with history of eosinophilic asthma presented to ED with 3 days of watery diarrhea and abdominal cramps followed by bloody diarrhea and found to have STEC infection. She works at [employer] and many employees sick at work with similar symptoms. Shiga toxin producing E. coli infection Stool culture positive for STEC, no O157:H7, no HUS. Was managed conservatively with IVF, antiemetics and pain control Abdominal pain resolved. No nausea. Tolerating diet well today Discharged on few doses of po reglan prn nausea Hypokalemia due to GI losses Repleted PCP can check BMP on follow up Eosinophilic asthma On [id number] infusion. Symptoms controlled. On singulair, anoro ellipta, arnuity ellipta. Anxiety On zoloft Total Time Total Time Spent Total Time Spent (In Minutes): 40 Total Time Includes: Examination of the Patient, Discharge Planning and Medication Reconciliation Discharge Plan Discharge Items Patient Disposition: Home - Self-Care Reason For Visit: Bloody diarrhea Discharge Diagnosis: Shiga toxin producing E. coli infection Colitis Hypokalemia Activity: Resume your previous activity Non-emergency contact: Primary Care Provider Call non-emergency contact if: you have any medication questions and your symptoms worsen Follow-up/Referrals: Stewart Villa DO [Primary Care Provider] - (Date & Time 03/19/2023 11:20 AM Provider Stewart Villa DO Department [facility] ) Diet: Regular Addtl Attending Provider Instructions: Ms Olsen You came to the hospital complaining of bloody diarrhea, abdominal pain and inability to keep food down. You were evaluated and managed for the above named diagnoses. Your symptoms are much improved. You are being discharged home. Please follow up your Primary Doctor who will check basic metabolic panel on follow up. It was a pleasure taking care of you. Pending Studies at Discharge: No Stand-Alone Forms: [employer], Smoking Cessation Medications and DC Order Prescriptions: New metoclopramide HCl [Reglan] 5 mg tablet 5 mg PO TID PRN (Reason: nausea and vomiting) Qty: 10 0RF Continued montelukast 10 mg tablet 10 mg PO HS Qty: 90 1RF levalbuterol HCl 1.25 mg/3 mL solution for nebulization 1.25 mg inhalation Q4H PRN (Reason: shortness of breath or wheezing) Qty: 75 5RF levalbuterol tartrate [Xopenex HFA] 45 mcg/actuation HFA aerosol inhaler 2 inh inhalation Q6H PRN (Reason: shortness of breath or wheezing) Qty: 15 3RF Fasenra 30 mg/mL syringe 30 mg subcut .COMPLEX Qty: 1 6RF Rx Instructions: INJECT 30MG SQ EVERY 8 WEEKS APPROVEDTHRU MEDICAL BENEFIT GOOD 09/25/22-09/24/23 [id number] albuterol sulfate 90 mcg/actuation HFA aerosol inhaler 2 puff INHALATION Q4H PRN (Reason: Shortness Of Breath Or Wheezing) Qty: 8.5 2RF Trelegy Ellipta 200-62.5-25 mcg blister with device 1 inh inhalation DAILY Qty: 3 3RF sertraline 100 mg tablet 100 mg PO DAILY triamcinolone acetonide [Nasacort Allergy] 55 mcg Aerosol,[place] 2 spray INTRANASAL DAILY PRN (Reason: allergies) Rx Instructions: administer into each nostril hydroxyzine HCl 25 mg tablet 25 mg PO DAILY PRN (Reason: Anxiety) Discharge Orders: Discharge Order (Routine); Ordered 03/12/23 Ordered By: Pilar Barron Admission Data Admit Date/Time: 03/07/23 23:46 Attending Provider: Pilar Barron I. Admit Provider: Sony Combs Primary Care Provider: Stewart Villa Other Providers: Sony Combs ; Yohannes Hansen Other Interventions: Discharge Summary Assessment (RN) Last Done: 03/12/23 14:30
== END 2023-03-12 14:44 | disposition home or self-care (01) | DRG 372 ==
LOC: ED 18:38 → SUATTDRO 23:46 → 2W 03-08 → 3W 03-10 15:21

== ENCOUNTER 2023-03-13 20:56 | Observation (INO) ==
[2023-03-13] MEDS ORDERED: ONDANSETRON INJ 2 MG/ML 2 ML VIAL IV STA (21:20)
[2023-03-13] MEDS ORDERED: SODIUM CHLORIDE 0.9% 1000ML 1,000 ML IV STA (21:20)
--- NOTE | 2023-03-13 21:28 | Emergency Department Note ---
ED Provider Note History of Present Illness Chief Complaint: Vomiting Stated Complaint: WAS HERE TODAY,LEFT AMA,ECOLI,VOMITING, Time Seen by Provider: 03/13/23 21:13 47-year-old female who returns to the emergency department requesting admission for intractable nausea, vomiting and bloody diarrhea. The patient was recently admitted to our facility for Shiga toxin producing E. coli. She was just discharged yesterday. The patient did present to our emergency department this afternoon with similar symptoms. She was found to be mildly hypokalemic. She was offered admission by the [facility] hospitalist team, but the patient declin ed. The patient reports that she did not have any Zofran ODT at home, and took metoclopramide without adequate control of her nausea and vomiting. She denies any new or worsening symptoms when compared to symptoms that brought her to the emergency department this afternoon. Home Medications Medication Instructions Recorded Confirmed Type montelukast 10 mg tablet 10 mg PO HS #90 tabs 07/09/22 03/13/23 Rx levalbuterol HCl 1.25 mg/3 mL 1.25 mg (3 mL) inhalation Q4H PRN 09/16/22 03/13/23 Rx solution for nebulization shortness of breath or wheezing #75 mL levalbuterol tartrate 45 2 inh inhalation Q6H PRN shortness 09/16/22 03/13/23 Rx mcg/actuation aerosol inhaler of breath or wheezing #15 grams (Xopenex HFA) albuterol sulfate 90 mcg/actuation 2 puff inhalation Q4H PRN 11/13/22 03/13/23 Rx aerosol inhaler Shortness Of Breath Or Wheezing #8.5 grams fluticasone fur. 200 mcg-umeclid 1 inh inhalation DAILY #3 Inhalers 11/13/22 03/13/23 Rx 62.5 mcg-vilant 25 mcg inhalat.powder (Trelegy Ellipta) hydroxyzine HCl 25 mg tablet 25 mg PO DAILY PRN Anxiety 03/07/23 03/13/23 His tory sertraline 100 mg tablet 100 mg PO DAILY 03/07/23 03/13/23 History triamcinolone acetonide 55 mcg 2 spray intranasal DAILY PRN 03/07/23 03/13/23 History nasal spray aerosol (Nasacort allergies Allergy) metoclopramide HCl 5 mg tablet 5 mg PO TID PRN nausea and 03/12/23 03/13/23 Rx (Reglan) vomiting #10 tabs benralizumab 30 mg/mL subcutaneous 30 mg subcut .Q OTHER MONTH 03/13/23 03/13/23 History syringe (Fasenra) Allergies Allergy/AdvReac Type Severity Reaction Status Date / Time tramadol Allergy Severe Swelling Verified 03/13/23 21:05 of Lip/Tongue/Throat escitalopram [From Lexapro] AdvReac Severe increased Verified 03/13/23 21:05 BP, HR, dizziness, and leg weakness. Past Med/Surg History Medical History Acute respiratory failure with hypoxia Anxiety and depression Asthma COVID-19 Idiopathic scoliosis Lymphadenopathy, axillary Lymphadenopathy, inguinal Peripheral eosinophilia Recurrent severe major depressive disorder with anxiety Severe persistent asthma Surgical History H/O wisdom tooth extraction Family History Father Dyslipidemia Myxoma of heart Tobacco dependency Other Cancer Diabetes Heart disease Lung disease Denies family history of Asthma Social History Smoking Status: Never smoker Tobacco Type: Cigarettes Cigarettes Per Day: 2; Second Hand Exposure: No; Do You Dip or Chew Tobacco: No; Hx Alcohol Use: No Hx Substance Use: Yes Last Used Substance: Days (ago) Substance Use Type Other:: Medical marijuana Preferred Language: Setswana Communication Ability: Effective Hearing Ability: Normal Application Administrator Required: No Beliefs That Will Affect Care: None marital status: Single Current Living Situation: Significant Other Current Living Situation Comment: Lives with boyfriend current occupational status: employed current occupation: [employer] How many Children do You have: 0 Feels Safe at Home: Yes Childhood Exposure to Second-Hand Smoke: Yes Diet: regular caffeine: Yes Dental Care, Regularly: Yes Physical Activity Frequency: Daily Seatbelt Use: sometimes Sunscreen Use: Yes Assistive Devices: None Physical Exam Vital Signs Vital Signs - 24 hr 03/13/23 20:57 03/13/23 22:04 03/13/23 22:05 Temperature 36.8 C Temperature Source Temporal Artery Scan Pulse Rate 78 70 Pulse Rate from SpO2 Sensor 73 Respiratory Rate 20 16 Respiratory Effort / Characteristics Non-Labored Spontaneous Respiratory Depth Normal Blood Pressure 161/90 H 143/89 H Blood Pressure Mean 113 115 Pulse Oximetry 93 97 Oxygen Delivery Method Room Air Sepsis Recent Fever Within 48 Hours No Sepsis New/Unexplained Change in Mental Status No Sepsis Action Taken by Nursing No Action Required 03/13/23 22:05 03/13/23 22:10 03/13/23 22:23 Temperature Temperature Source Pulse Rate 63 69 Pulse Rate from SpO2 Sensor 64 68 87 Respiratory Rate 14 15 Respiratory Effort / Characteristics Respiratory Depth Blood Pressure Blood Pressure Mean Pulse Oximetry 98 96 97 Oxygen Delivery Method Sepsis Recent Fever Within 48 Hours Sepsis New/Unexplained Change in Mental Status Sepsis Action Taken by Nursing CONSTITUTIONAL: Healthy and well nourished. Patient appears in moderate discomfort from nausea. HEENT: Normocephalic, atraumatic. Pupils equal, round and reactive. Mucous membranes are dry. RESPIRATORY: Clear to auscultation bilaterally with no wheezing, crackles, rhonchi or stridor. CARDIOVASCULAR: Regular rate and rhythm with no murmurs, rubs or gallops. GASTROINTESTINAL: Bowel sounds present in all quadrants. Generalized abdominal tenderness to palpation without any focal findings or CVA tenderness. MUSCULOSKELETAL: Full range of motion of all joints without discomfort. INTEGUMENTARY: No rash or other significant dermatologic conditions noted. HEMATOLOGIC: No ecchymosis or petechiae. PSYCHIATRIC: Positive affect. NEUROLOGIC: No focal neurologic deficits noted. Course Course Patient history and physical exam were performed. Nurses notes were reviewed. Vital signs were reviewed, showing an elevated blood pressure. The patient is not febrile or tachycardic. Also reviewed documentation from the patient's visit this afternoon, showing that she was mildly hypokalemic, and did receive potassium repletion. [facility] however the patient declined and wanted to go home. Metoclopramide prescription did not provide adequate nausea control, and the patient returned to the emergency department on this visit requesting admission. IV access was established, and labs were redrawn. The patient was hydrated with a liter of normal saline, and administered IV Zofran. The case was then discussed with Dr. Granda, hospitalist, who will evaluate the patient. Please see his dictation for further treatment and final disposition. Review of labs continues to show no leukocytosis. CMP shows a normal creatinine, sodium and potassium. Magnesium, LFTs and lipase were also normal. Serum is negative. Urinalysis shows 2+ ketonuria and hematuria without convincing evidence for infection. COVID-19 test was also negative. Administered Medications Hydroxyzine HCl (Hydroxyzine Hcl 25 Mg Tab) 25 mg PO DAILY PRN PRN Reason: Anxiety Stop: 04/12/23 23:32 Last Admin: 03/14/23 00:27 Dose: 25 mg Documented By: CUCO Dextrose/Sodium Chloride (D5w And Nss) 1,000 mls @ 100 mls/hr IV .Q10H CATY Stop: 04/12/23 23:32 Last Admin: 03/13/23 23:55 Dose: 100 mls/hr Documented By: CUCO Discontinued Medications Dicyclomine HCl (Dicyclomine Hcl 10 Mg Cap) 10 mg PO NOW ONE Stop: 03/13/23 22:24 Last Admin: 03/13/23 23:00 Dose: 10 mg Documented By: KEVIN Sodium Chloride (Nss 1000ml) 1,000 mls @ 999 mls/hr IV .Q1H1M STA Stop: 03/13/23 22:20 Last Infusion: 03/13/23 22:21 Dose: 0 mls/hr Documented By: Admin: 03/13/23 21:40 Dose: 999 mls/hr Documented By: KEVIN Promethazine HCl (Phenergan) 12.5 mg in 50.5 mls @ 202 mls/hr IV NOW STA Stop: 03/13/23 22:37 Last Infusion: 03/13/23 23:33 Dose: 0 mls/hr Documented By: Admin: 03/13/23 23:00 Dose: 202 mls/hr Documented By: KEVIN Ketorolac Tromethamine (Ketorolac Tromethamine 15 Mg/Ml Vial) 15 mg IV NOW ONE Stop: 03/13/23 22:24 Last Admin: 03/13/23 23:00 Dose: 15 mg Documented By: KEVIN Ondansetron HCl (Ondansetron Inj 2 Mg/Ml 2 Ml Vial) 4 mg IV NOW STA Stop: 03/13/23 21:21 Last Admin: 03/13/23 21:40 Dose: 4 mg Documented By: KEVIN Medical Decision Making Medical Records Attestation: I reviewed the patient's medical records. Home Medications was personally reviewed by vt Laboratory Data Attestation: I reviewed the patient's lab results. 03/13/23 21:25 03/13/23 21:25 Lab Results 03/13/23 03/13/23 03/13/23 Range/Units 21:25 21:25 21:25 WBC 6.32 (4.8-10.8) K/ul RBC 4.26 (4.20-5.40) M/uL Hgb 12.9 (12.0-16.0) g/dl Hct 37.2 (37.0-47.0) % MCV 87.3 (80.0-100.0) fL MCH 30.3 (25.0-34.0) pg MCHC 34.7 (32.0-36.0) g/dL RDW Std Deviation 40.2 (36.4-46.3) fL RDW Coeff of Noé 12.6 (11.5-14.5) % Plt Count 287 (130-400) K/uL MPV 10.4 (9.4-12.4) fL Immature Gran % (Auto) 3.6 % Neut % (Auto) 58.0 % Lymph % (Auto) 29.4 % Wallace % (Auto) 8.4 % Eos % (Auto) 0.0 % Baso % (Auto) 0.6 % Neut # (Auto) 3.66 (1.40-6.50) K/uL Lymph # (Auto) 1.86 (1.2-3.4) K/uL Wallace # (Auto) 0.53 (0.11-0.59) K/uL Eos # (Auto) 0.00 (0-0.50) K/uL Baso # (Auto) 0.04 (0-0.2) K/uL Immature Gran # (Auto) 0.23 H (0.01-0.20) K/uL Sodium 140 (136-145) mmol/L Potassium 3.5 (3.5-5.1) mmol/L Chloride 105 (98-107) mmol/L Carbon Dioxide 24 (21-32) mmol/L Anion Gap 11 (3-11) BUN 5 L (6-23) mg/dl Creatinine 0.64 (0.6-1.2) mg/dl Est Cr Clr Drug Dosing 121.4 ml/min Est GFR ( Amer) 139.8 ml/min Est GFR (Non-Af Amer) 120.6 ml/min BUN/Creatinine Ratio 7.8 L (10-20) Glucose 94 (70-99(Fasting)) mg/dl Calcium 9.0 (8.6-10.3) mg/dl Magnesium 1.9 (1.7-2.4) mg/dl Total Bilirubin 0.4 (0.2-1.0) mg/dl AST 15 (13-39) U/L ALT 11 (7-52) U/L Alkaline Phosphatase 42 (34-104) U/L Total Protein 6.7 (6.0-8.3) gm/dl Albumin 3.8 (3.4-5.0) gm/dl Globulin 2.9 (2.5-4.0) gm/dl Albumin/Globulin Ratio 1.3 (0.9-2) Lipase 16 (11-82) U/L HCG, Qual Negative (Negative) MDM Narrative See ED course for further details of today's visit. The patient returns for intractable nausea and vomiting after being offered admission this afternoon. The patient was recently admitted and discharged from our facility for Shiga toxin producing E. coli colitis. She was here earlier today, but refused admission for symptomatic control. She returns because of intractable nausea and vomiting. Today's labs did not show any concerning findings, including electrolyte abnormalities, urinary tract infection or positive COVID testing. Impression Intractable nausea and vomiting, Shiga toxin-producing Escherichia coli infection Discharge Plan Visit Data Chief Complaint: Vomiting Stated Complaint: WAS HERE TODAY,LEFT AMA,ECOLI,VOMITING, ED Provider: Apolonia Swain ED Midlevel Provider: Bradly Santiago Discharge Problem: Intractable nausea and vomiting, Shiga toxin-producing Escherichia coli infection Patient Disposition: Admitted As Inpatient Discharge Instructions Interventions: ED Discharge Assessment Last Done: 03/13/23 23:31
[2023-03-13 21:51] LABS: Basophils # (auto) 0.04 K/uL (0-0.2); Basophils % (auto) 0.6 %; Hematocrit (blood only) 37.2 % (37.0-47.0); Hemoglobin 12.9 g/dl (12.0-16.0); Immature Granulocytes # (auto) 0.23 K/uL (0.01-0.20); Immature Granulocytes % (auto) 3.6 %; Lymphocytes # (auto) 1.86 K/uL (1.2-3.4); Lymphocytes % (auto) 29.4 %; Mean Corpuscular Hemoglobin 30.3 pg (25.0-34.0); Mean Corpuscular Hgb Conc 34.7 g/dL (32.0-36.0); Mean Corpuscular Volume 87.3 fL (80.0-100.0); Mean Platelet Volume 10.4 fL (9.4-12.4); Monocytes # (auto) 0.53 K/uL (0.11-0.59); Monocytes % (auto) 8.4 %; Neutrophils # (auto) 3.66 K/uL (1.40-6.50); Platelet Count 287 K/uL (130-400); RDW Coefficient of Variation 12.6 % (11.5-14.5); RDW Standard Deviation 40.2 fL (36.4-46.3); Red Blood Count 4.26 M/uL (4.20-5.40); White Blood Count 6.32 K/ul (4.8-10.8)
[2023-03-13 22:04] LABS: Pregnancy Test, Serum Negative (Negative)
[2023-03-13 22:07] LABS: Albumin Globulin Ratio 1.3 (0.9-2); Albumin Level 3.8 gm/dl (3.4-5.0); BUN Creatinine Ratio 7.8 (10-20); Bilirubin,Total 0.4 mg/dl (0.2-1.0); Creatinine Clr Calc Pharmacy 121.4 ml/min; Est GFR (African American) 139.8 ml/min; Est GFR (Non-African American) 120.6 ml/min; Globulin 2.9 gm/dl (2.5-4.0); Magnesium 1.9 mg/dl (1.7-2.4); Potassium 3.5 mmol/L (3.5-5.1); Total Protein 6.7 gm/dl (6.0-8.3)
[2023-03-13] MEDS ORDERED: PROMETHAZINE 12.5 MG/50.5 ML BAG IV STA (22:23)
[2023-03-13] MEDS ORDERED: DICYCLOMINE HCL 10 MG CAP PO ONE (22:23)
[2023-03-13] MEDS ORDERED: KETOROLAC TROMETHAMINE 15 MG/ML VIAL IV ONE (22:23)
--- NOTE | 2023-03-13 22:44 | History & Physical Report ---
Date of Service March 13, 2023 Assessment & Plan (1) Intractable nausea and vomiting: Plan: 27-year-old female who was recently in the hospital for Shiga toxin producing E. coli infection and was discharged comes back in with persistent nausea vomiting, abdominal pain, and diarrhea. Currently there is no blood in the stools. We will observe her in the hospital. We will keep her on clears. IV fluids, IV antiemetics, IV pain meds as needed. Monitor the medical floor. History of severe persistent asthma Continue home inhalers Currently stable. History of eosinophilic asthma On every 2 monthly infusion. Anxiety On Zoloft DVT prophylaxis SCDs Disposition Observe on medical floor. (2) Eosinophilic asthma: History of Present Illness Chief Complaint: Nausea vomiting and diarrhea Primary Care Provider: Stewart Villa DO This 27-year-old female with past medical history significant for eosinophilic asthma, severe persistent asthma, PTSD, PAIGE, medical marijuana use, who was recently in the hospital for Shiga toxin producing E. coli infection went home today comes back with nausea vomiting. Says cannot keep anything down. Still has diarrhea but there is no blood in the stools. Has abdominal pain 5 or 10 in severity. Denies any fevers. Currently resting comfortably hemodynamically sta ble. Denies any headache , no blurred visions. No runny nose, no sore throat, no cough. No chest pain or shortness of breath. Normal bowel movements. Allergies Allergy/AdvReac Type Severity Reaction Status Date / Time tramadol Allergy Severe Swelling Verified 03/13/23 21:05 of Lip/Tongue/Throat escitalopram [From Lexapro] AdvReac Severe increased Verified 03/13/23 21:05 BP, HR, dizziness, and leg weakness. Home Medications Medication Instructions Recorded Confirmed Type montelukast 10 mg tablet 10 mg PO HS #90 tabs 07/09/22 03/13/23 Rx levalbuterol HCl 1.25 mg/3 mL 1.25 mg (3 mL) inhalation Q4H PRN 09/16/2203/13 Rx solution for nebulization shortness of breath or wheezing #75 mL levalbuterol tartrate 45 2 inh inhalation Q6H PRN shortness 09/16/22 03/13/23 Rx mcg/actuation aerosol inhaler of breath or wheezing #15 grams (Xopenex HFA) albuterol sulfate 90 mcg/actuation 2 puff inhalation Q4H PRN 11/13/22 03/13/23 Rx aerosol inhaler Shortness Of Breath Or Wheezing #8.5 grams fluticasone fur. 200 mcg-umeclid 1 inh inhalation DAILY #3 Inhalers 11/13/22 03/13/23 Rx 62.5 mcg-vilant 25 mcg inhalat.powder (Trelegy Ellipta) hydroxyzine HCl 25 mg tablet 25 mg PO DAILY PRN Anxiety 03/07/23 03/13/23 History sertraline 100 mg tablet 100 mg PO DAILY 03/07/23 03/13/23 History triamcinolone acetonide 55 mcg 2 spray intranasal DAILY PRN 03/07/23 03/13/23 History nasal spray aerosol (Nasacort allergies Allergy) metoclopramide HCl 5 mg tablet 5 mg PO TID PRN nausea and 03/12/23 03/13/23 Rx (Reglan) vomiting #10 tabs benralizumab 30 mg/mL subcutaneous 30 mg subcut .Q OTHER MONTH 03/13/23 03/13/23 History syringe (Fasenra) Past Med/Surg History Medical History Acute respiratory failure with hypoxia Anxiety and depression Asthma COVID-19 Idiopathic scoliosis Lymphadenopathy, axillary Lymphadenopathy, inguinal Peripheral eosinophilia Recurrent severe major depressive disorder with anxiety Severe persistent asthma Surgical History H/O wisdom tooth extraction Family History Father Dyslipidemia Myxoma of heart Tobacco dependency Other Cancer Diabetes Heart disease Lung disease Denies family history of Asthma Social History Smoking Status: Never smoker Tobacco Type: Cigarettes Cigarettes Per Day: 2; Second Hand Exposure: No; Do You Dip or Chew Tobacco: No; Hx Alcohol Use: No Hx Substance Use: Yes Last Used Substance: Days (ago) Substance Use Type Other:: Medical marijuana Preferred Language: Citizen Of [place] Communication Ability: Effective Hearing Ability: Normal Gas Maker Helper Required: No Beliefs That Will Affect Care: None marital status: Single Current Living Situation: Significant Other Current Living Situation Comment: Lives with boyfriend current occupational status: employed current occupation: [employer] How many Children do You have: 0 Feels Safe at Home: Yes Childhood Exposure to Second-Hand Smoke: Yes Diet: regular caffeine: Yes Dental Care, Regularly: Yes Physical Activity Frequency: Daily Seatbelt Use: sometimes Sunscreen Use: Yes Assistive Devices: None Review of Systems Review of Systems: All systems reviewed & are unremarkable except as noted in Subjective Physical Exam Physical Exam: NEEDS EDITING General- adult Head- atraumatic Eyes- PERRL, ENT- oropharynx clear Neck- supple, no JVD, Lungs- clear to auscultation and percussion Heart- regular rhythm; no murmur, no gallop, no rub appreciated Abdomen- normal bowel sounds, soft, mild diffuse tenderness, no distension Extremities- no pretibial edema, no eryhtema Neuro- alert, oriented x 3; PERRL, no facial palsy; no dysarthria; Non focal Skin- warm & dry Results & Data Results & Data Vital Signs (Past 12 Hours) Vital Signs Temp Pulse Resp BP Pulse Ox O2 Del Method 03/13/23 20:57 36.8 C 78 20 161/90 H 93 Room Air Diagnostic Findings Laboratory Results WBC 6.32 K/ul (4.8-10.8) 03/13/23 21:25 RBC 4.26 M/uL (4.20-5.40) 03/13/23 21:25 Hgb 12.9 g/dl (12.0-16.0) 03/13/23 21:25 Hct 37.2 % (37.0-47.0) 03/13/23 21:25 MCV 87.3 fL (80.0-100.0) 03/13/23 21:25 MCH 30.3 pg (25.0-34.0) 03/13/23 21:25 MCHC 34.7 g/dL (32.0-36.0) 03/13/23 21:25 RDW Std Deviation 40.2 fL (36.4-46.3) 03/13/23 21:25 RDW Coeff of Noé 12.6 % (11.5-14.5) 03/13/23 21:25 Plt Count 287 K/uL (130-400) 03/13/23 21: MPV 10.4 fL (9.4-12.4) 03/13/23 21: Immature Gran % (Auto) 3.6 % 03/13/23 21: Neut % (Auto) 58.0 % 03/13/23 21: Lymph % (Auto) 29.4 % 03/13/23 21:25 Gregg % (Auto) 8.4 % 03/13/23: Eos % (Auto) 0.0 % 03/13/23 21: Baso % (Auto) 0.6 % 03/13/23: Neut # (Auto) 3.66 K/uL (1.40-6.50) 03/13/23: Lymph # (Auto) 1.86 K/uL (1.2-3.4) 03/13/23 21: Gregg # (Auto) 0.53 K/uL (0.11-0.59) 03/13/23: Eos # (Auto) 0.00 K/uL (0-0.50) 03/13/23 21: Baso # (Auto) 0.04 K/uL (0-0.2) 03/13/23 21: Immature Gran # (Auto) 0.23 K/uL (0.01-0.20) H 03/13/23 21:25 Sodium 140 mmol/L (136-145) 03/13/23 21: Potassium 3.5 mmol/L (3.5-5.1) 03/13/23 21: Chloride 105 mmol/L (98-107) 03/13/23 21: Carbon Dioxide 24 mmol/L (21-32) 03/13/23 21:25 Anion Gap 11 (3-11) 03/13/23 21:25 BUN 5 mg/dl (6-23) L 03/13/23 21: Creatinine 0.64 mg/dl (0.6-1.2) 03/13/23 21:25 Est Cr Clr Drug Dosing 121.4 ml/min 03/13/23 21:25 Est GFR ( Amer) 139.8 ml/min 03/13/23 21:25 Est GFR (Non-Af Amer) 120.6 ml/min 03/13/23 21:25 BUN/Creatinine Ratio 7.8 (10-20) L 03/13/23 21:25 Glucose 94 mg/dl (70-99(Fasting)) 03/13/23 21:25 Calcium 9.0 mg/dl (8.6-10.3) 03/13/23 21:25 Magnesium 1.9 mg/dl (1.7-2.4) 03/13/23 21:25 Total Bilirubin 0.4 mg/dl (0.2-1.0) 03/13/23 21:25 AST 15 U/L (13-39) 03/13/23 21:25 ALT 11 U/L (7-52) 03/13/23 21:25 Alkaline Phosphatase 42 U/L (34-104) 03/13/23 21:25 Total Protein 6.7 gm/dl (6.0-8.3) 03/13/23 21:25 Albumin 3.8 gm/dl (3.4-5.0) 03/13/23 21:25 Globulin 2.9 gm/dl (2.5-4.0) 03/13/23 21:25 Albumin/Globulin Ratio 1.3 (0.9-2) 03/13/23 21:25 Lipase 16 U/L (11-82) 03/13/23 21:25 HCG, Qual Negative (Negative) 03/13/23 21:25 Code Status & VTE Plan VTE Prophylaxis Plan VTE Prophylaxis will be ordered: Yes
[2023-03-13] MEDS ORDERED: LEVALBUTEROL 1.25 MG/3 ML NEB INH PRN (23:33)
[2023-03-13] MEDS ORDERED: hydrOXYzine HCl 25 MG TAB PO PRN (23:33)
[2023-03-13] MEDS ORDERED: D5W AND NSS 1,000 ML IV SCH (23:33)
[2023-03-13] MEDS ORDERED: ALBUTEROL HFA 8 GM INHALER INH PRN (23:33)
[2023-03-13] MEDS ORDERED: LEVALBUTEROL TARTRATE 15 GM HFA.AER.AD INH PRN (23:33)
[2023-03-13] MEDS ORDERED: KETOROLAC TROMETHAMINE 15 MG/ML VIAL IV PRN (23:33)
[2023-03-13] MEDS ORDERED: ACETAMINOPHEN 1,000 MG/100 ML VIAL IV PRN (23:33)
[2023-03-13] MEDS ORDERED: FLUTICASONE PROPIONATE NA SPR 16 GM BTL PRN (23:33)
[2023-03-14 00:41] LABS: Appearance Urine Clear (Clear); Bilirubin Urine Negative (Negative); Blood Urine Negative (Negative); Color Urine Yellow; Glucose Urine UA Negative (Negative); Ketones Urine 1+ (Negative); Leukocyte Esterase Urine Negative (Negative); Nitrite Urine Negative (Negative); Protein Urine Negative (Negative); Specific Gravity Urine 1.007 (1.000-1.030); Urobilinogen Urine Negative (Negative); pH Urine 5.5 (4.5-7.5)
[2023-03-14] MEDS ORDERED: FAMOTIDINE 20 MG in SYRINGE 3 ML IV STA (00:45)
[2023-03-14] MEDS ORDERED: diphenhydrAMINE 50 MG/ML VIAL IV STA ×2 (01:03→05:34)
[2023-03-14] MEDS ORDERED: methylPREDNISolone 50 MG in SYRINGE 0 ML IV STA (01:18)
[2023-03-14] MEDS: ONDANSETRON INJ 2 MG/ML 2 ML VIAL IV PRN (04:24)
[2023-03-14] MEDS: METOCLOPRAMIDE HCL INJ 5 MG/ML 2 ML VIAL IV PRN ×3 (05:30→17:10)
[2023-03-14] MEDS: SODIUM CHLORIDE 0.9% 1000ML 1,000 ML IV SCH (06:00)
[2023-03-14 06:10] LABS: Basophils # (auto) 0.03 K/uL (0-0.2); Basophils % (auto) 0.4 %; Hematocrit (blood only) 37.5 % (37.0-47.0); Hemoglobin 12.9 g/dl (12.0-16.0); Immature Granulocytes # (auto) 0.19 K/uL (0.01-0.20); Immature Granulocytes % (auto) 2.8 %; Lymphocytes # (auto) 1.85 K/uL (1.2-3.4); Lymphocytes % (auto) 27.4 %; Mean Corpuscular Hgb Conc 34.4 g/dL (32.0-36.0); Mean Corpuscular Volume 87.2 fL (80.0-100.0); Monocytes # (auto) 0.47 K/uL (0.11-0.59); Neutrophils # (auto) 4.21 K/uL (1.40-6.50); Neutrophils % (auto) 62.4 %; Platelet Count 285 K/uL (130-400); RDW Coefficient of Variation 12.5 % (11.5-14.5); RDW Standard Deviation 39.8 fL (36.4-46.3); White Blood Count 6.75 K/ul (4.8-10.8)
[2023-03-14 06:25] LABS: BUN Creatinine Ratio 5.4 (10-20); Calcium 7.9 mg/dl (8.6-10.3); Creatinine Clr Calc Pharmacy 136.7 ml/min; Magnesium 1.8 mg/dl (1.7-2.4); Potassium 3.3 mmol/L (3.5-5.1)
--- NOTE | 2023-03-14 07:20 | Communication Note ---
Date of Service: March 14, 2023 Patinet developed lip swelling and wheezing after, iv Toradol, Bentyl and iv Phenergan. Received iv Benuryl and iv Pepcid and breathing treatment. Wheezing improved. No tounge swelling, no sob or chest pain, Hemodynamics ok. Refused steroids. Still has some lip swelling. Gave another dose of iv Benadryl. Will avoid above meds. Close monitor.
[2023-03-14] MEDS: FAMOTIDINE 20 MG in SYRINGE 3 ML IV SCH (08:29)
[2023-03-14] MEDS: FLUTICASONE FUROATE 200MCG 14 PUFFS/INHALER INH SCH (08:30)
[2023-03-14] MEDS: UMECLIDINIUM/VILANTEROL 62.5/25MCG 7 PUFFS/INHALER INH SCH (08:30)
[2023-03-14] MEDS: SERTRALINE HCL 100 MG TABLET PO SCH (08:31)
[2023-03-14] MEDS ORDERED: NON-FORMULARY MEDICATION (Fluticasone-Umeclidin-Vilanter [Trelegy Ellipta] 200-62.5-25 mcg INH SCH (09:00)
--- NOTE | 2023-03-14 11:36 | Hospitalist Progress Note ---
Date of Service March 14, 2023 Assessment & Plan (1) Intractable nausea and vomiting: (2) Eosinophilic asthma: Plan 27-year-old female who was recently in the hospital for Shiga toxin producing E. coli infection and was discharged on 03/12/23 comes back in with persistent nausea vomiting, abdominal pain, and diarrhea. Continue supportive care Bloody diarrhea had resolved prior to recent discharge. Reported she had a few episodes of bloody diarrhea at home prior to coming back. However, has been nonbloody since coming to ER. Continue supportive care with IV antiemetics, IVF Monitor electrolytes Replete hypokalemia Monitor I/O Unclear about the possible allergic reaction reported overnight. Will monitor Patient has a lot of anxiety related to her current illness. Provided education which helped calm patient Updated father who was on the phone with patient History of severe persistent asthma Continue home inhalers Currently stable. History of eosinophilic asthma On every 2 monthly infusion. Anxiety On Zoloft DVT prophylaxis SCDs Disposition Observe on medical floor. I spent a total of 50 minutes coordinating, documenting and providing care for this patient excluding time spent in performance of separately billed services Admission and Anticipated Discharge Date Admission Date: March 13, 2023 Subjective Patient seen and examined Reported some allergic reaction to med overnight Reported lip swelling and tingling which resolved with benadryl It is unclear what med patient may have reacted to as she got a couple of meds since admission and has received those meds in the past including rcent admission. Currently reports no vomiting. Still has intermittent nausea and low abd pain Reports she had some episodes of bloody diarrhea at home after discharge home before coming back to the hospital but no longer bloody since this readmission Still having intermittent diarrhea Denied fever, chills, dizziness, headache, chest pain, SOB, dysuria, freq, urgency Physical Exam Constitutional: + well hydrated; no acute distress Eyes: PERRL, conjunctivae normal, anicteric sclerae ENMT: external ear and nose normal, oropharynx normal Respiratory: normal respiratory effort, lungs clear to auscultation Cardiovascular: Rate/Rhythm: regular rate and regular rhythm S1 S2 Gastrointestinal (Abdomen): Inspection/Auscultation: abdomen normal to inspection and normal bowel sounds; abdomen not distended Mild low abd tenderness, no rebound/guarding Musculoskeletal: no cyanosis or clubbing, extremities motor strength 5/5 Neurologic: PERRL, EOMI, accommodation nl, no face palsy, no dysarthria Psychiatric: AOx3, anxious Results & Data Results & Data Vital Signs (Past 12 Hours) Vital Signs Temp Pulse Resp BP Pulse Ox O2 Del Method 03/14/23 07:59 36.6 C 96 H 16 133/81 95 Room Air 03/14/23 01:13 89 18 94 Room Air Laboratory Results Abnormal lab results 03/13/23 03/13/23 03/14/23 Range/Units 21:25 21:25 00:30 Immature Gran # (Auto) 0.23 H (0.01-0.20) K/uL Potassium (3.5-5.1) mmol/L BUN 5 L (6-23) mg/dl Creatinine (0.6-1.2) mg/dl BUN/Creatinine Ratio 7.8 L (10-20) Glucose (70-99(Fasting)) mg/dl Calcium (8.6-10.3) mg/dl Urine Ketones 1+ H (Negative) 03/14/23 Range/Units 05:42 Immature Gran # (Auto) (0.01-0.20) K/uL Potassium 3.3 L (3.5-5.1) mmol/L BUN 3 L (6-23) mg/dl Creatinine 0.56 L (0.6-1.2) mg/dl BUN/Creatinine Ratio 5.4 L (10-20) Glucose 117 H (70-99(Fasting)) mg/dl Calcium 7.9 L (8.6-10.3) mg/dl Urine Ketones (Negative)
[2023-03-14] MEDS: POTASSIUM CHLORIDE / WTR 10 MEQ/100 ML PLCT IV SCH ×2 (11:54→13:01)
[2023-03-14] MEDS ORDERED: POTASSIUM CHLORIDE PWD 20 MEQ PACK PO ONE (12:44)
[2023-03-14] MEDS ORDERED: MONTELUKAST SODIUM 10 MG TABLET PO SCH (21:00)
[2023-03-14] MEDS ORDERED: diphenhydrAMINE Capsule 25 MG CAP PO ONE (22:44)
[2023-03-15] MEDS: SODIUM CHLORIDE 0.9% 1000ML 1,000 ML IV SCH (02:05)
[2023-03-15] MEDS: ONDANSETRON INJ 2 MG/ML 2 ML VIAL IV PRN (03:31)
[2023-03-15 07:31] LABS: Hematocrit (blood only) 38.8 % (37.0-47.0); Hemoglobin 13.3 g/dl (12.0-16.0); Mean Corpuscular Hemoglobin 29.8 pg (25.0-34.0); Mean Corpuscular Hgb Conc 34.3 g/dL (32.0-36.0); Mean Platelet Volume 9.7 fL (9.4-12.4); Platelet Count 303 K/uL (130-400); RDW Coefficient of Variation 12.5 % (11.5-14.5); RDW Standard Deviation 39.8 fL (36.4-46.3); Red Blood Count 4.46 M/uL (4.20-5.40); White Blood Count 8.41 K/ul (4.8-10.8)
[2023-03-15 07:51] LABS: BUN Creatinine Ratio 5.1 (10-20); Calcium 8.5 mg/dl (8.6-10.3); Creatinine Clr Calc Pharmacy 129.8 ml/min; Est GFR (African American) 143.6 ml/min; Est GFR (Non-African American) 123.9 ml/min; Magnesium 1.9 mg/dl (1.7-2.4); Potassium 3.8 mmol/L (3.5-5.1)
[2023-03-15] MEDS: UMECLIDINIUM/VILANTEROL 62.5/25MCG 7 PUFFS/INHALER INH SCH (08:15)
[2023-03-15] MEDS: FLUTICASONE FUROATE 200MCG 14 PUFFS/INHALER INH SCH (08:15)
[2023-03-15] MEDS: SERTRALINE HCL 100 MG TABLET PO SCH (08:15)
[2023-03-15] MEDS: FAMOTIDINE 20 MG in SYRINGE 3 ML IV SCH (08:18)
--- NOTE | 2023-03-15 10:34 | Gastrointestinal Consultation ---
Date of Consultation March 15, 2023 Assessment & Plan (1) Shiga toxin-producing Escherichia coli (E. coli) (STEC), unspecified: Symptoms seem to have resolved. She tells me she is tolerating oral intake and her nausea/vomiting has resolved. She tells me that diarrhea has improved with stools forming. She does not feel she needs any other intervention at this time since symptoms are improving and she is tolerating oral intake without need for medicaitons. Supervising Physician Co-Signing Physician Notes Agree with BISI Fleming as above Patient was discharged prior to my evaluation. History of Present Illness Reason for Consultation: shiga toxin e coli diarrhea / some bloody, readmit Requesting Physician: Dr. Pilar Barron Attending Physician: Pilar Barron MD History of Present Illness Patient is a 27 year old female who was recently in the hospital for Shiga toxin producing E. coli infection and was discharged home but had returned with persistent nausea vomiting, abdominal pain, and bloody diarrhea. She tells me that she feels she needed a few more days. She tells me that since her readmission, her diarrhea has improved. Stools are becoming soft and more formed. there is no further bloody stools. Her nausea and vomiting has improved and she is tolerating oral intake without needing her medications. She feels symptoms seem to have resolved now. she denies any abdominal pain. 03/14/23 cbc normal, potassium 3.3. Allergies Allergy/AdvReac Type Severity Reaction Status Date / Time tramadol Allergy Severe Swelling Verified 03/13/23 21:05 of Lip/Tongue/Throat escitalopram [From Lexapro] AdvReac Severe increased Verified 03/13/23 21:05 BP, HR, dizziness, and leg weakness. Home Medications Medication Instructions Recorded Confirmed Type montelukast 10 mg tablet 10 mg PO HS #90 tabs 07/09/22 03/13/23 Rx levalbuterol HCl 1.25 mg/3 mL 1.25 mg (3 mL) inhalation Q4H PRN 09/16/22 03/13/23 Rx solution for nebulization shortness of breath or wheezing #75 mL levalbuterol tartrate 45 2 inh inhalation Q6H PRN shortness 09/16/22 03/13/23 Rx mcg/actuation aerosol inhaler of breath or wheezing #15 grams (Xopenex HFA) albuterol sulfate 90 mcg/actuation 2 puff inhalation Q4H PRN 11/13/22 03/13/23 Rx aerosol inhaler Shortness Of Breath Or Wheezing #8.5 grams fluticasone fur. 200 mcg-umeclid 1 inh inhalation DAILY #3 Inhalers 11/13/22 03/13/23 Rx 62.5 mcg-vilant 25 mcg inhalat.powder (Trelegy Ellipta) hydroxyzine HCl 25 mg tablet 25 mg PO DAILY PRN Anxiety 03/07/23 03/13/23 History sertraline 100 mg tablet 100 mg PO DAILY 03/07/23 03/13/23 History triamcinolone acetonide 55 mcg 2 spray intranasal DAILY PRN 03/07/23 03/13/23 History nasal spray aerosol (Nasacort allergies Allergy) metoclopramide HCl 5 mg tablet 5 mg PO TID PRN nausea and 03/12/23 03/13/23 Rx (Reglan) vomiting #10 tabs benralizumab 30 mg/mL subcutaneous 30 mg subcut .Q OTHER MONTH 03/13/23 03/13/23 History syringe (Fasenra) Patient History Medical History Acute respiratory failure with hypoxia Anxiety and depression Asthma COVID-19 Idiopathic scoliosis Lymphadenopathy, axillary Lymphadenopathy, inguinal Peripheral eosinophilia Recurrent severe major depressive disorder with anxiety Severe persistent asthma Surgical History H/O wisdom tooth extraction Family History Father Dyslipidemia Myxoma of heart Tobacco dependency Other Cancer Diabetes Heart disease Lung disease Denies family history of Asthma Social History Smoking Status: Never smoker Tobacco Type: Cigarettes Cigarettes Per Day: 2; Second Hand Exposure: No; Do You Dip or Chew Tobacco: No; Hx Alcohol Use: No Hx Substance Use: Yes Last Used Substance: Days (ago) Substance Use Type Other:: Medical marijuana Preferred Language: Cypriot Communication Ability: Effective Hearing Ability: Normal Wallpaper Inspector Required: No Beliefs That Will Affect Care: None marital status: Single Current Living Situation: Significant Other Current Living Situation Comment: Lives with boyfriend current occupational status: employed current occupation: [employer] How many Children do You have: 0 Other Information That Helps Us Care for You: No Feels Safe at Home: Yes Safety Concerns: Feels Safe At This Time Childhood Exposure to Second-Hand Smoke: Yes Diet: regular caffeine: Yes Dental Care, Regularly: Yes Physical Activity Frequency: Daily Seatbelt Use: sometimes Sunscreen Use: Yes Assistive Devices: Glasses Review of Systems Review of Systems: All systems reviewed & are unremarkable except as noted in HPI & below Physical Exam Physical Exam: Patient declined further Physical exam. Constitutional: WD/WN, vitals as above Respiratory: normal respiratory effort Psychiatric: Orientation: alert and oriented x 3 Affect: euthymic affect Results & Data Vital Signs (Past 12 Hours) Vital Signs Temp Pulse Resp BP Pulse Ox O2 Del Method 03/15/23 07:39 98.2 F 66 16 142/80 H 96 Room Air PG Care Time/CCT Total # of Minutes Spent Total Time Spent with Patient: Total time spent is greater than 50% in coordination of care (as documented) at patient's floor/unit and/or counseling patient: Coding Level of Care Code 87819 IN/OBS CONSULT LVL 2,35M Diagnoses Shiga toxin-producing Escherichia coli (E. coli) (STEC), unspecified A49.8
--- NOTE | 2023-03-15 12:43 | Discharge Summary ---
Date of Service March 15, 2023 Admission HPI Per Admitting Provider This 27-year-old female with past medical history significant for eosinophilic asthma, severe persistent asthma, PTSD, PAIGE, medical marijuana use, who was recently in the hospital for Shiga toxin producing E. coli infection went home today comes back with nausea vomiting. Says cannot keep anything down. Still has diarrhea but there is no blood in the stools. Has abdominal pain 5 or 10 in severity. Denies any fevers. Currently resting comfortably hemodynamically stable. Denies any headache , no blurred visions. No runny nose, no sore throat, no cough. No chest pain or shortness of breath. Normal bowel mo vements. Admission Exam Per Admitting Provider General- adult Head- atraumatic Eyes- PERRL, ENT- oropharynx clear Neck- supple, no JVD, Lungs- clear to auscultation and percussion Heart- regular rhythm; no murmur, no gallop, no rub appreciated Abdomen- normal bowel sounds, soft, mild diffuse tenderness, no distension Extremities- no pretibial edema, no eryhtema Neuro- alert, oriented x 3; PERRL, no facial palsy; no dysarthria; Non focal Skin- warm & dry Principal Diagnosis Intractable nausea, vomiting, diarrhea Shiga toxin E coli infection Discharge Exam Constitutional + well hydrated; no acute distress Eyes PERRL, conjunctivae normal, anicteric sclerae ENMT external ear and nose normal, oropharynx normal Respiratory normal respiratory effort, lungs clear to auscultation Cardiovascular Rate/Rhythm: regular rate and regular rhythm S1 S2 Gastrointestinal (Abdomen) Inspection/Auscultation: abdomen normal to inspection and normal bowel sounds; abdomen not distended Musculoskeletal no cyanosis or clubbing, extremities motor strength 5/5 Neurologic PERRL, EOMI, accommodation nl, no face palsy, no dysarthria Psychiatric A+Ox3, euthymic affect Discharge Data Allergies Allergy/AdvReac Type Severity Reaction Status Date / Time tramadol Allergy Severe Swelling Verified 03/13/23 21:05 of Lip/Tongue/Throat escitalopram [From Lexapro] AdvReac Severe increased Verified 03/13/23 21:05 BP, HR, dizziness, and leg weakness. Consultations 03/13/23 21:20 ED Decision to Admit Stat 03/14/23 10:43 Consult Gastroenterology Routine Hospital Course (1) Intractable nausea and vomiting: (2) Eosinophilic asthma: Plan 27-year-old female who was recently in the hospital for Shiga toxin producing E. coli infection and was discharged on 03/12/23 comes back in with persistent nausea vomiting, abdominal pain, and diarrhea. Bloody diarrhea had resolved prior to recent discharge. Reported she had a few episodes of bloody diarrhea at home prior to coming back. However, has been nonbloody since coming to ER. Was managed with supportive care, IVF, antiemetics Nausea, vomiting and abd pain resolved Reports diarrhea is improving and wants to go home today Had an episode on night of admission during which she reported some lip swelling and wheezing. Possible allergic reaction. However, it was unclear what the precipitant is as she got a couple of meds on night of admission that she had gotten in the past. History of severe persistent asthma Continue home inhalers Currently stable. History of eosinophilic asthma On every 2 monthly infusion. Anxiety On Zoloft Total Time Total Time Spent Total Time Spent (In Minutes): 35 Total Time Includes: Examination of the Patient, Discharge Planning and Medication Reconciliation Discharge Plan Discharge Items Patient Disposition: Home - Self-Care Reason For Visit: N/V AND DIARRHEA Discharge Diagnosis: Intractable nausea and vomiting Recent Shiga toxin E coli infection Activity: Resume your previous activity Non-emergency contact: Primary Care Provider Call non-emergency contact if: you have any medication questions and your symptoms worsen Follow-up/Referrals: Stewart Villa DO [Primary Care Provider] - (Date & Time 03/19/2023 11:20 AM Provider Stewart Villa DO Department [facility] ) Diet: Regular Addtl Attending Provider Instructions: Ms Olsen You came back to the hospital for intractable nausea, vomiting and diarrhea. You were recently hospitalized for shiga toxin E coli infection. Your nausea, vomiting have resolved and diarrhea improved. You are being discharged home. Please keep your appointment with your Primary Doctor within the week It was a pleasure taking care of you. Pending Studies at Discharge: No Stand-Alone Forms: [employer], Smoking Cessation Medications and DC Order Prescriptions: Continued montelukast 10 mg tablet 10 mg PO HS Qty: 90 1RF levalbuterol HCl 1.25 mg/3 mL solution for nebulization 1.25 mg inhalation Q4H PRN (Reason: shortness of breath or wheezing) Qty: 75 5RF levalbuterol tartrate [Xopenex HFA] 45 mcg/actuation HFA aerosol inhaler 2 inh inhalation Q6H PRN (Reason: shortness of breath or wheezing) Qty: 15 3RF albuterol sulfate 90 mcg/actuation HFA aerosol inhaler 2 puff INHALATION Q4H PRN (Reason: Shortness Of Breath Or Wheezing) Qty: 8.5 2RF Trelegy Ellipta 200-62.5-25 mcg blister with device 1 inh inhalation DAILY Qty: 3 3RF sertraline 100 mg tablet 100 mg PO DAILY triamcinolone acetonide [Nasacort Allergy] 55 mcg Aerosol,[place] 2 spray INTRANASAL DAILY PRN (Reason: allergies) Rx Instructions: administer into each nostril hydroxyzine HCl 25 mg tablet 25 mg PO DAILY PRN (Reason: Anxiety) metoclopramide HCl [Reglan] 5 mg tablet 5 mg PO TID PRN (Reason: nausea and vomiting) Qty: 10 0RF Fasenra 30 mg/mL syringe 30 mg subcut .Q OTHER MONTH Rx Instructions: INJECT 30MG SQ EVERY 8 WEEKS APPROVEDTHRU MEDICAL BENEFIT GOOD 09/25/22-09/24/23 [id number] Discharge Orders: Discharge Order (Routine); Ordered 03/15/23 Ordered By: Pilar Pérez/Other Patient Handouts: Understanding Asthma, Understanding Asthma Triggers Admission Data Admit Date/Time: 03/13/23 22:28 Attending Provider: Pilar Barron I. Admit Provider: Telly Granda Primary Care Provider: Stewart Villa Other Providers: Telly Granda ; Leonid Fraire Other Interventions: Discharge Summary Assessment (RN) Last Done: 03/15/23 12:46
== END 2023-03-15 13:27 | disposition home or self-care (01) ==
LOC: ED 20:56 → 3N 20:56

== ENCOUNTER 2024-06-01 07:09 | Inpatient (IN) ==
[2024-06-01] MEDS: SODIUM CHLORIDE 0.9% 1,000 ML IV SCH (07:55)
[2024-06-01] MEDS: ONDANSETRON INJ 2 MG/ML 2 ML VIAL IV STA (07:55)
--- NOTE | 2024-06-01 07:55 | Emergency Department Note ---
History of Present Illness General Chief complaint: Vomiting Stated complaint: CAN'T EAT OR DRINK,VOMITING Time Seen by Provider: 06/01/24 07:27 Source: patient, family (Boyfriend who is at the bedside), RN notes reviewed and old records reviewed (Labs from yesterday at the [facility] ER) Mode of arrival: ambulatory Limitations: no limitations History of Present Illness Maximum Pain Intensity: 6 This patient a 28-year-old female comes in after feeling sick for about 5 days of nausea and vomiting now diarrhea as well. She was seen at [facility] ER last night and received IV fluids and IV Zofran they checked labs she was negative for C. difficile had a negative and had a mildly elevated white count 12.8 she has been having cramping mostly in her epigastric area. She does have a history of Shiga toxin E. coli about a year ago. Her boyfriend was sick recently but had more respiratory symptoms. No recent travel. No chest pain or shortness of breath she does have history of asthma that is been stable no fever. No unusual food.. No significant alcohol use. She does use edibles at night for sleep. Home Medications Medication Instructions Recorded Confirmed Type montelukast 10 mg tablet 10 mg PO HS #90 tabs 07/09/22 06/01/24 Rx levalbuterol HCl 1.25 mg/3 mL 1.25 mg (3 mL) inhalation Q4H PRN 09/16/22 06/01/24 Rx solution for nebulization shortness of breath or wheezing #75 mL albuterol sulfate 90 mcg/actuation 2 puff inhalation Q4H PRN 11/13/22 06/01/24 Rx aerosol inhaler Shortness Of Breath Or Wheezing #8.5 grams fluticasone fur. 200 mcg-umeclid 1 inh inhalation DAILY #3 Inhalers 11/13/22 06/01/24 Rx 62.5 mcg-vilant 25 mcg inhalat.powder (Trelegy Ellipta) hydroxyzine HCl 25 mg tablet 25 mg PO DAILY PRN Anxiety 03/07/23 06/01/24 History sertraline 100 mg tablet 100 mg PO DAILY 03/07/23 06/01/24 History triamcinolone acetonide 55 mcg 2 spray intranasal DAILY PRN 03/07/23 06/01/24 History nasal spray aerosol (Nasacort allergies Allergy) benralizumab 30 mg/mL subcutaneous 30 mg subcut .Q OTHER MONTH 03/13/23 06/01/24 History syringe (Fasenra) levalbuterol tartrate 45 1 - 2 inh inhalation .[id number] PRN 12/29/23 06/01/24 Rx mcg/actuation aerosol inhaler shortness of breath or wheezing #15 grams budesonide 0.5 mg/2 mL suspension 0.5 mg inhalation UD 06/01/24 06/01/24 History for nebulization Allergies Allergy/AdvReac Type Severity Reaction Status Date / Time tramadol Allergy Severe Swelling Verified 10/07/23 20:42 of Lip/Tongue/Throat escitalopram [From Lexapro] AdvReac Severe increased Verified 10/07/23 20:42 BP, HR, dizziness, and leg weakness. Past Med/Surg History Problem List (Updated 06/01/24 @ 15:13 by Rubin Smith MD) Colitis (Acute) Shga txn prod E.coli NEC (Acute) Diarrhea (Acute) Nausea and vomiting (Acute) Acute dehydration (Acute) Shiga toxin-producing Escherichia coli (E. 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 infection (Acute) Hematochezia (Acute) Patient request for diagnostic testing Severe persistent asthma Encounter for examination following treatment at hospital Anxiety disorder due to general medical condition with panic attack Generalized anxiety disorder with panic attacks Asthma exacerbation (Acute) Allergic rhinitis due to animals Allergic rhinitis due to dust mite Acute sinusitis Peripheral eosinophilia Leukocytosis Occupational exposure to chemicals Uncontrolled severe persistent asthma (Acute) Medical History Recurrent severe major depressive disorder with anxiety Anxiety and depression Idiopathic scoliosis COVID-19 Acute respiratory failure with hypoxia Asthma Lymphadenopathy, inguinal Lymphadenopathy, axillary Surgical History H/O wisdom tooth extraction Family History Father Dyslipidemia Myxoma of heart Tobacco dependency Other Cancer Diabetes Heart disease Lung disease Denies family history of Asthma Social History Smoking Status: Never smoker Tobacco Type: Cigarettes Cigarettes Per Day: 2; Second Hand Exposure: No; Do You Dip or Chew Tobacco: No; Hx Alcohol Use: No Hx Substance Use: Yes Last Used Substance: Days (ago) Substance Use Type Other:: Medical marijuana Preferred Language: Arabic Communication Ability: Effective Hearing Ability: Normal [employer] Manager Required: No Beliefs That Will Affect Care: None marital status: Single Current Living Situation: Significant Other Current Living Situation Comment: Lives with boyfriend current occupational status: employed current occupation: [employer] How many Children do You have: 0 Feels Safe at Home: Yes Childhood Exposure to Second-Hand Smoke: Yes Diet: regular caffeine: Yes Dental Care, Regularly: Yes Physical Activity Frequency: Daily Seatbelt Use: sometimes Sunscreen Use: Yes Assistive Devices: Glasses Review of Systems A total of 10 systems reviewed and were otherwise negative Physical Exam Vital Signs Vital Signs - 24 hr 06/01/24 07:19 06/01/24 08:10 06/01/24 08:10 Temperature 36.8 C Temperature Source Oral Pulse Rate 72 Pulse Rate [Apical] 85 Respiratory Rate 20 18 Respiratory Effort / Characteristics Non-Labored Spontaneous Non-Labored Respiratory Depth Normal Normal Respiratory Pattern Regular Blood Pressure 143/84 H Blood Pressure [Left Arm] 127/82 Blood Pressure Mean 103 Blood Pressure Mean [Left Arm] 97 Pulse Oximetry 97 100 100 Oxygen Delivery Method Room Air Room Air Room Air Sepsis Recent Fever Within 48 Hours No Sepsis New/Unexplained Change in Mental Status N/A Sepsis Action Taken by Nursing No Action Required 06/01/24 08:13 06/01/24 09:05 Temperature Temperature Source Pulse Rate 72 Pulse Rate [Apical] 78 Respiratory Rate 18 Respiratory Effort / Characteristics Respiratory Depth Respiratory Pattern Blood Pressure Blood Pressure [Left Arm] 133/72 Blood Pressure Mean Blood Pressure Mean [Left Arm] 92 Pulse Oximetry 100 Oxygen Delivery Method Room Air Sepsis Recent Fever Within 48 Hours Sepsis New/Unexplained Change in Mental Status Sepsis Action Taken by Nursing General: Well developed well nourished young female who appears in no acute distress, breathing comfortably on room air. Normal speech HEENT: Normal cephalic atraumatic. Pupils are equal round and reactive to light. Extraocular movements are intact. Oropharynx is pink with moist mucous membranes. No swelling of the mouth lips or tongue. Neck: Supple with a midline trachea. No meningeal signs or stiffness, no JVD or bruits. No Stridor. Chest: Clear to auscultation bilaterally. No wheezes or rhonchi. No increased work of breathing. Heart: Regular rate and rhythm without murmurs or gallops. Abdomen: Soft, mildly tender in epigastric area and towards the right upper quadrant. , nondistended without rebound guarding or rigidity. Extremities: No cyanosis clubbing or edema. No calf tenderness or assymetry Spine/Back. Non tender to palpation. No CVA tenderness Skin: Good turgor without rashes. Neurologic exam: Cranial nerves two through 12 are intact. Motor and sensation are intact and symmetrical throughout. Course Administered Medications Potassium Chloride (K Angel Luis / Wtr) 10 meq in 100 mls @ 100 mls/hr IV Q1H CATY Stop: 06/01/24 15:29 Last Admin: 06/01/24 15:07 Dose: 100 mls/hr Documented By: Infusion: 06/01/24 14:56 Dose: Infused Documented By: Admin: 06/01/24 13:56 Dose: 100 mls/hr Documented By: PEDRO Discontinued Medications Albuterol (Albuterol 0.083% Nebu Soln 3 Ml Vial) 2.5 mg NEB NOW STA; Protocol Stop: 06/01/24 07:56 Last Admin: 06/01/24 08:19 Dose: 2.5 mg Documented By: NIKA Hydroxyzine HCl (Hydroxyzine Hcl 25 Mg Tab) 25 mg PO NOW STA Stop: 06/01/24 08:00 Last Admin: 06/01/24 08:04 Dose: 25 mg Documented By: PEDRO Sodium Chloride (Nss) 1,000 mls @ 999 mls/hr IV .Q1H1M CATY Stop: 06/01/24 10:00 Last Infusion: 06/01/24 10:10 Dose: Infused Documented By: Admin: 06/01/24 08:58 Dose: 999 mls/hr Documented By: Infusion: 06/01/24 08:56 Dose: Infused Documented By: Admin: 06/01/24 07:55 Dose: 999 mls/hr Documented By: PEDRO Ciprofloxacin (Cipro / D5w) 400 mg in 200 mls @ 100 mls/hr IV Q12H [facility]; Protocol Stop: 06/11/24 11:29 Last Admin: 06/01/24 13:07 Dose: Not Given Documented By: FRANCIS Metronidazole (Flagyl) 500 mg in 100 mls @ 100 mls/hr IV Q8H [facility]; Protocol Stop: 06/11/24 11:29 Last Admin: 06/01/24 13:07 Dose: Not Given Documented By: FRANCIS Ioversol (Optiray 320 100ml) 94 ml IV ONCE ONE Stop: 06/01/24 09:27 Last Admin: 06/01/24 09:27 Dose: 94 ml Documented By: OWEN Ondansetron HCl (Ondansetron Inj 2 Mg/Ml 2 Ml Vial) 4 mg IV NOW STA Stop: 06/01/24 07:51 Last Admin: 06/01/24 07:55 Dose: 4 mg Documented By: PEDRO Medical Decision Making Differential Diagnosis Dehydration, gastroenteritis, intra-abdominal process, infection, gallbladder disease, pancreatitis, diarrheal illness, colitis, appendicitis, hyperemesis cannabis Medical Records Attestation: I reviewed the patient's medical records. Home Medications Current Medication List: was personally reviewed by me Laboratory Data Attestation: I reviewed the patient's lab results. 06/01/24 07:40 06/01/24 07:40 Lab Results 06/01/24 06/01/24 Range/Units 07:40 08:30 WBC 9.65 (4.8-10.8) K/ul RBC 5.08 (4.20-5.40) M/uL Hgb 15.6 (12.0-16.0) g/dl Hct 45.1 (37.0-47.0) % MCV 88.8 (80.0-100.0) fL MCH 30.7 (25.0-34.0) pg MCHC 34.6 (32.0-36.0) g/dL RDW Std Deviation 41.1 (36.4-46.3) fL RDW Coeff of Noé 12.5 (11.5-14.5) % Plt Count 207 (130-400) K/uL MPV 10.5 (9.4-12.4) fL Immature Gran % (Auto) 0.2 % Neut % (Auto) 78.5 % Lymph % (Auto) 13.7 % Campbell % (Auto) 7.4 % Eos % (Auto) 0.0 % Baso % (Auto) 0.2 % Neut # (Auto) 7.58 H (1.40-6.50) K/uL Lymph # (Auto) 1.32 (1.20-3.40) K/uL Campbell # (Auto) 0.71 H (0.11-0.59) K/uL Eos # (Auto) 0.00 (0.00-0.50) K/uL Baso # (Auto) 0.02 (0.00-0.20) K/uL Immature Gran # (Auto) 0.02 (0.01-0.20) K/uL Sodium 139 (136-145) mmol/L Potassium 3.4 L (3.5-5.1) mmol/L Chloride 104 (98-107) mmol/L Carbon Dioxide 26 (21-32) mmol/L Anion Gap 9 (3-11) BUN 8 (6-23) mg/dl Creatinine 0.71 (0.6-1.2) mg/dl Est Cr Clr Drug Dosing 95.8 ml/min Est GFR ( Amer) 132.5 ml/min Est GFR (Non-Af Amer) 114.3 ml/min BUN/Creatinine Ratio 11.3 (10-20) Glucose 104 H (70-99(Fasting)) mg/dl Calcium 9.4 (8.6-10.3) mg/dl Total Bilirubin 0.7 (0.2-1.0) mg/dl AST 19 (13-39) U/L ALT 12 (7-52) U/L Alkaline Phosphatase 55 (34-104) U/L C-Reactive Protein 1.01 H (0-0.5) mg/dl Total Protein 7.7 (6.0-8.3) gm/dl Albumin 4.6 (3.4-5.0) gm/dl Globulin 3.1 (2.5-4.0) gm/dl Albumin/Globulin Ratio 1.5 (0.9-2) Lipase 12 (11-82) U/L HCG, Qual Negative (Negative) Urine Color Dark Yellow Urine Appearance Clear (Clear) Urine pH 7.0 (4.5-7.5) Ur Specific [place] 1.026 (1.000-1.030) Urine Protein 1+ H (Negative) Urine Glucose (UA) Negative (Negative) Urine Ketones 3+ H (Negative) Urine Blood 2+ H (Negative) Urine Nitrite Negative (Negative) Urine Bilirubin Negative (Negative) Urine Urobilinogen Negative (Negative) Ur Leukocyte Esterase Trace H (Negative) Urine WBC (Auto) 0-5 (0-5) /hpf Urine RBC (Auto) 3-5 H (0-2) /hpf U Hyaline Cast (Auto) 0-2 (0-2) /lpf U Epithel Cells (Auto) 0-2 (0-2) /hpf Urine Bacteria (Auto) None Seen (None Seen) Stl C. cayetanensis PCR Not Detected (NotDetected) Stool Rotavirus A PCR Not Detected (NotDetected) Stl Adenov F 40/41 PCR Not Detected (NotDetected) Stool Astrovirus (PCR) Not Detected (NotDetected) Stool Campylobacter PCR Not Detected (NotDetected) Stl C. diff Tox B Gene Negative Cdiff Gene (Neg) Stool Cryptosporidium PCR Not Detected (NotDetected) Stl E.coli Shiga Tox PCR DETECTED A* (NotDetected) Stool E coli O157 PCR Not Detected (NotDetected) Stl Enterotoxigenic E PCR Not Detected (NotDetected) Stool EAEC (PCR) Not Detected (NotDetected) Stl E. histolytica PCR Not Detected (NotDetected) Stool Giardia Lamblia PCR Not Detected (NotDetected) Stool Salmonella PCR Not Detected (NotDetected) Stool Sapovirus (PCR) Not Detected (NotDetected) Stl P. shigelloides PCR Not Detected (NotDetected) Stl Shigella/EIEC PCR Not Detected (NotDetected) St Y.enterocolitica PCR Not Detected (NotDetected) Stool Vibrio (PCR) Not Detected (NotDetected) Stl Vibrio cholerae PCR Not Detected (NotDetected) Stl Norovirus GI/GII PCR Not Detected (NotDetected) Imaging Data Attestation: I personally reviewed and interpreted this imaging study as follows: My Impression: CT of the abdomen and pelvisno obstruction or free air. Radiologist's Impression: Abdomen/Pelvis CT 06/01/24 07:49 CT OF THE ABDOMEN AND PELVIS WITH CONTRAST CLINICAL HISTORY: Abdominal pain, nausea and vomiting. COMPARISON STUDY: CT of the abdomen and pelvis March 07, 2023. TECHNIQUE: Following IV administration of 94 mL of Optiray, axial images of the abdomen and pelvis were obtained from the lung bases to the proximal femurs. Images were reviewed in the axial, sagittal, and coronal planes. IV contrast was administered without complication. Automated exposure control was utilized for the study. A dose lowering technique was utilized adhering to the principles of ALARA. CT DOSE: 480.65 mGy.cm FINDINGS: Lung bases are unremarkable. No pneumatosis, free air or portal venous gas is present. Liver, spleen, adrenal glands, kidneys and pancreas are unremarkable. There is no biliary or pancreatic ductal dilatation. There is no hydronephrosis. The appendix is normal. There is no evidence for a bowel obstruction. Moderate wall thickening of the ascending colon and proximal to mid transverse colon is noted with pericolonic stranding. The appearance is similar to CT of May 08, 2023. There is no free air or abscess. A small amount of associated ascites is present. Major vasculature is patent. There are no fluid collections. There is no lymphadenopathy. The ovaries are not enlarged. IMPRESSION: 1. Moderate right colon wall thickening with adjacent stranding consistent with a nonspecific colitis, similar in appearance to CT of March 07, 2023. No free air or abscess. Trace associated ascites. 2. Normal appendix. No bowel obstruction. ACT 112: Negative or not required by law. Electronically signed by: Petey Jones M.D. 06/01/2024 9:44 AM MDM Narrative This patient comes in as described above. She was placed in room C5. She is here for treatment evaluation of abdominal cramps nausea vomiting and diarrhea. Is been persistent. She was seen at an outside ER yesterday. IV access established. She was hydrated with 2 L IV normal saline. She was given Zofran 4 mg IV. I did order lab work. Given the fact that the symptoms been persistent and this is her second ER visit also add a stool PCR and a CAT scan. Explained the risk and the benefits and she freely consented. She was reassessed frequently. Shortly after evaluating her she started complaining of feeling anxious and short of breath. She does have history of anxiety when she feels sick and feels that that makes her asthma worse I went back to reassess her she seems mostly anxious she has some scattered wheezing I did give her an albuterol neb she does take hydroxyzine for anxiety so I gave her hydroxyzine 25 mg p.o. she tells me she had been on Ativan in the past but they switched her as she was taking too much Ativan. She remained stable and without any further shortness of breath or anxiety. She has no significant white count to suggest infection in fact it is lower compared to yesterday. She has no significant anemia. test was negative. She has no significant electrolyte or metabolic abnormalities. CAT scan shows a nonspecific colitis which looks similar to her previous CAT scan. She also was positive for E. coli Shiga toxin. Based on recommendations from up-to-date, antibiotics and antimotility agents are not recommended. She has no evidence of suggest hemolytic uremic syndrome at this point. This is her second ER visit in less than 24 hours and she continues to have trouble keeping fluids down at home .I do think she needs to be admitted/observed overnight in the hospital for IV hydration and further treatment evaluation I discussed the case with the [facility] team and she will be admitted/observed . Continuous monitoring analyst: Orders placed in EMR for continuous monitoring analyst call upon my evaluation she was noted to be in normal sinus with a rate of 70 Impression & Plan Shga txn prod E.coli NEC, Acute dehydration, Nausea and vomiting, Diarrhea, Colitis Discharge Plan Visit Data Chief Complaint: Vomiting Stated Complaint: CAN'T EAT OR DRINK,VOMITING ED Provider: Rubin Smith ED Midlevel Provider: Ann Cerrato Discharge Problem: Shga txn prod E.coli NEC, Acute dehydration, Nausea and vomiting, Diarrhea, Colitis Patient Disposition: Admitted As Inpatient Discharge Instructions Interventions: ED Discharge Assessment Last Done: 06/01/24 14:10 Discharge Problem: Nausea and vomiting Qualifiers: Vomiting type: unspecified Qualified Code(s): R11.2 - Nausea with vomiting, unspecified Diarrhea Qualifiers: Diarrhea type: unspecified type Qualified Code(s): R19.7 - Diarrhea, unspecified
[2024-06-01] MEDS: hydrOXYzine HCl 25 MG TAB PO STA (08:04)
[2024-06-01 08:12] LABS: Basophils # (auto) 0.02 K/uL (0.00-0.20); Basophils % (auto) 0.2 %; Hematocrit (blood only) 45.1 % (37.0-47.0); Hemoglobin 15.6 g/dl (12.0-16.0); Immature Granulocytes # (auto) 0.02 K/uL (0.01-0.20); Immature Granulocytes % (auto) 0.2 %; Lymphocytes # (auto) 1.32 K/uL (1.20-3.40); Lymphocytes % (auto) 13.7 %; Mean Corpuscular Hemoglobin 30.7 pg (25.0-34.0); Mean Corpuscular Hgb Conc 34.6 g/dL (32.0-36.0); Mean Corpuscular Volume 88.8 fL (80.0-100.0); Mean Platelet Volume 10.5 fL (9.4-12.4); Monocytes # (auto) 0.71 K/uL (0.11-0.59); Monocytes % (auto) 7.4 %; Neutrophils # (auto) 7.58 K/uL (1.40-6.50); Neutrophils % (auto) 78.5 %; Platelet Count 207 K/uL (130-400); RDW Coefficient of Variation 12.5 % (11.5-14.5); RDW Standard Deviation 41.1 fL (36.4-46.3); Red Blood Count 5.08 M/uL (4.20-5.40); White Blood Count 9.65 K/ul (4.8-10.8)
[2024-06-01] MEDS: ALBUTEROL 0.083% NEBU SOLN 3 ML VIAL NEB STA (08:19)
[2024-06-01 08:28] LABS: Pregnancy Test, Serum Negative (Negative)
[2024-06-01 09:11] LABS: Appearance Urine Clear (Clear); Bacteria Urine Automated None Seen (None Seen); Bilirubin Urine Negative (Negative); Blood Urine 2+ (Negative); Cast Urine Automated 0-2 /lpf (0-2); Color Urine Dark Yellow; Epithelial Cell Urine Auto 0-2 /hpf (0-2); Glucose Urine UA Negative (Negative); Ketones Urine 3+ (Negative); Leukocyte Esterase Urine Trace (Negative); Nitrite Urine Negative (Negative); Protein Urine 1+ (Negative); Specific Gravity Urine 1.026 (1.000-1.030); Urobilinogen Urine Negative (Negative); WBC Urine Automated 0-5 /hpf (0-5)
[2024-06-01 09:12] LABS: Albumin Level 4.6 gm/dl (3.4-5.0); Bilirubin,Total 0.7 mg/dl (0.2-1.0); Calcium 9.4 mg/dl (8.6-10.3); Potassium 3.4 mmol/L (3.5-5.1)
[2024-06-01 09:19] LABS: Albumin Globulin Ratio 1.5 (0.9-2); BUN Creatinine Ratio 11.3 (10-20); Creatinine Clr Calc Pharmacy 95.8 ml/min; Est GFR (African American) 132.5 ml/min; Est GFR (Non-African American) 114.3 ml/min; Globulin 3.1 gm/dl (2.5-4.0); Total Protein 7.7 gm/dl (6.0-8.3)
[2024-06-01] MEDS: OPTIRAY 320 100ml IV ONE (09:27)
--- NOTE | 2024-06-01 09:46 | CT Scan Report ---
CT OF THE ABDOMEN AND PELVIS WITH CONTRAST CLINICAL HISTORY: Abdominal pain, nausea and vomiting. COMPARISON STUDY: CT of the abdomen and pelvis March 07, 2023. TECHNIQUE: Following IV administration of 94 mL of Optiray, axial images of the abdomen and pelvis we re obtained from the lung bases to the proximal femurs. Images were reviewed in the axial, sagittal, and coronal planes. IV contrast was administered without complication. Automated exposure control wa s utilized for the study. A dose lowering technique was utilized adhering to the principles of ALARA . CT DOSE: 480.65 mGy.cm FINDINGS: Lung bases are unremarkable. No pneumatosis, free air or portal venous gas is present. Live r, spleen, adrenal glands, kidneys and pancreas are unremarkable. There is no biliary or pancreatic d uctal dilatation. There is no hydronephrosis. The appendix is normal. There is no evidence for a allyson l obstruction. Moderate wall thickening of the ascending colon and proximal to mid transverse colon i s noted with pericolonic stranding. The appearance is similar to CT of May 08, 2023. There is no free air or abscess. A small amount of associated ascites is present. Major vasculature is patent. T here are no fluid collections. There is no lymphadenopathy. The ovaries are not enlarged. IMPRESSION: 1. Moderate right colon wall thickening with adjacent stranding consistent with a nonspecific colitis , similar in appearance to CT of March 07, 2023. No free air or abscess. Trace associated ascites. 2. Normal appendix. No bowel obstruction. ACT 112: Negative or not required by law. Electronically signed by: Petey Jones M.D. 06/01/2024 9:44 AM
[2024-06-01 10:27] LABS: Adenovirus F 40/41 PCR Not Detected (NotDetected); Astrovirus PCR Not Detected (NotDetected); Campylobacter PCR Not Detected (NotDetected); Cryptosporidium PCR Not Detected (NotDetected); Cyclospora cayetanensis PCR Not Detected (NotDetected); E.coli O157 PCR Not Detected (NotDetected); Entamoeba histolytica PCR Not Detected (NotDetected); Enteroaggregative E.coli(EAEC) Not Detected (NotDetected); Enterotoxigenic E.coli (ETEC) Not Detected (NotDetected); Giardia lamblia PCR Not Detected (NotDetected); Norovirus GI/GII PCR Not Detected (NotDetected); Plesiomonas shigelloides PCR Not Detected (NotDetected); Rotavirus A PCR Not Detected (NotDetected); Salmonella PCR Not Detected (NotDetected); Sapovirus PCR Not Detected (NotDetected); Shigella/Enteroinvasive E.coli Not Detected (NotDetected); Vibrio cholerae PCR Not Detected (NotDetected); Vibrio species PCR Not Detected (NotDetected); Yersinia enterocolitica PCR Not Detected (NotDetected)
[2024-06-01 10:49] LABS: Shiga-like Toxin E.coli (STEC) DETECTED (NotDetected)
--- NOTE | 2024-06-01 11:15 | History & Physical Report ---
Date of Service June 01, 2024 Assessment & Plan (1) Shiga toxin-producing Escherichia coli (E. coli) (STEC), unspecified: (2) Intractable nausea and vomiting: (3) Eosinophilic asthma: (4) Anxiety and depression: Plan 28-year-old F that presented to the ED today with c/o N/V/D that has been occurring for the past 5 days; with up to 8-10 bouts of vomiting. She reports that she is unable to keep any food or water down. Patient was seen at [facility] ER in [place] last evening and was given IV fluids and Zofran with relief. She did test negative for C. difficile at that time. Reportedly her white count was 12 last evening. Her pain continued to worsen over the past 24 hours, so she decided to return to the ER; here. Recent admission March 2023 with positive Shiga toxin which was resolved spontaneously with conservative management. She was evaluated by GI during that admission but at that time her symptoms have generally resolved so there was no follow-up appointment established. She reports that her symptoms do exacerbate around her period which she reports heavy menses. hcg negative. Additional PMH:includes eosinophilic asthma and anxiety. CTAP: nonspecific colitis; no free air or abscess. Trace associated ascites. No leukocytosis today; reportedly last evening at [facility] WBC 12k. Pt will be admitted for further evaluation and management of her Shiga E. Coli toxin, N/V/D, work up for hematochezia with GI consultation. Clear Liquid diet with lactose intolerance added. Considered starting Cipro/Flagyl however, research states no abx recommendation due to increased risk of HUS specifically with Shiga toxin. Continue IVF @ 100mL/hour x2 bags and reassess; given her ketonuria believe she is intravascularly dry due to vomiting. Low threshold to consider an autoimmune contribution to her symptoms like IBD/Celiacs; likely needing a colonoscopy for diagnosis once colitis resolved. Intractable N/V: shiga toxin-producing E.Coli: Ketonuria: Acute admission March 2023 with positive shiga toxin; Resolved with conservative measures and no outpatient GI follow-up was recommended given symptoms resolution CTAP: nonspecific colitis; no free air or abscess. Trace associated ascites. No SBO No leukocytosis today; reportedly last evening at [facility] WBC 12k Hcg negative CD pending; reportedly negative yesterday. Recently finished Azithro post sinus sx. Cl. liquid diet with lactose intolerance Considered starting Cipro/Flagyl however, research states no abx recommendation due to increased risk of HUS specifically with Shiga toxin. Celiac marker ordered Continue IVF @ 100mL/hour x2 bags and reassess; given her ketonuria believe she is intravascularly dry due to vomiting low threshold to consider an autoimmune contribution/IBD/celiac to her symptoms; would require a colonoscopy for diagnosis once colitis resolved Zofran for antiemetic. ECG in AM for monitoring of QTc. GI Consult placed Hypokalemia: Acute Serum potassium 3.4; replaced with K rider times 2+ additional IVF 20 KCl at 100/h x 2 bags; reassess Repeat BMP in a.m. Eosinophilic asthma: Chronic Currently following with her PCP Was following with [facility] Dr. Mcgovern however stopped due to insurance Currently on for Fasenra every other month; will continue as outpatient Has Trelegy and lev albuterol for breakthrough as needed; continue while inpatient While she has been sick the last few days has been using this every 4 hours related to anxiety Anxiety and depression: Chronic Take sertraline; continue Her asthma anxiety has exacerbated with the return of this illness Disposition: PCP: Dr. May CODE STATUS: Full code VTE prophylaxis: Teds and SCDs for now given hematochezia I spent a total of 87 minutes coordinating, documenting, and providing care for this patient excluding time spent in the performance of separately billed services. All of the aforementioned completed while collaborating with the assigned attending physician for a full treatment plan. Please see their addendum for further details. History of Present Illness Chief Complaint: N/V/D Primary Care Provider: ZACHARY Middleton Ms. Olsen is a 28-year-old female that presented to the ED today with complaints of nausea, vomiting and diarrhea that has been occurring for the past 5 days; with up to 8-10 bouts of vomiting. She reports that she is unable to keep any food or water down. Patient was seen at [facility] in [place] last evening and was given IV fluids and Zofran with relief. She did test negative for C. difficile at that time. Reportedly her white count was 12 last evening. 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 She does report insensitivities to certain dairy products. Patient has a recent admission March 2023 with positive Shiga toxin which was resolved spontaneously with conservative management. She was evaluated by GI during that admission but at that time her symptoms have generally resolved so there was no follow-up appointment established. She reports that her symptoms do exacerbate around her period which she reports heavy menses. Additional past medical history includes eosinophilic asthma for which she was following with [facility] [employer] Dr. Mcgovern however stopped due to insurance reasons and is currently being managed with Fasenra. She had sinus surgery 04/27; with polyp removal And was on antibiotics including azithromycin postop without any issues. She reports significant sensitivities to certain pain medications that includes tongue and lip numbness and swelling. CTAP: nonspecific colitis; no free air or abscess. Trace associated ascites. Normal appendix. No bowel obstruction. No leukocytosis today; reportedly last evening at [facility] WBC 12k. Pt denies SALAZAR, dizziness, chest pain, palpitations, neuropathy, recent falls or trauma. Pt denies tobacco use, alcohol use, daily recreational edible marijuana. She reports that her pain improved overnight however today it has returned and she is unable to keep any liquids or food down. She presented to the ED today abdominal pelvis CT was performed revealing nonspecific colitis with trace abdominal ascites. She has received 1 LNS be she does have a history having the positive should have E. coli and occurred 1 year ago and tediously resolved with conservative measures Patient has a past medical history that includes eosinophilic asthma and anxiety/depression. She gets Fasenra Q8 weeks. She is hemodynamically stable and on room air. No leukocytosis today mild hypokalemia with a K of 3.4. hCG negative today. Patient will be admitted for further evaluation and management of her Shiga E. Coli toxin, N/V/D, work up for hematochezia with GI consultation. Clear Liquid diet with lactose intolerance added. Considered starting Cipro/Flagyl; however, strong correlation with HUS. Continue IVF @ 100mL/hour x2 bags and reassess; given her ketonuria believe she is intravascularly dry due to vomiting. Low threshold to consider an autoimmune contribution to her symptoms like I BD/Celiacs; likely needing a colonoscopy for diagnosis once colitis resolved. Please see A/P for further details. Allergies Allergy/AdvReac Type Severity Reaction Status Date / Time tramadol Allergy Severe Swelling Verified 10/07/23 20:42 of Lip/Tongue/Throat escitalopram [From Lexapro] AdvReac Severe increased Verified 10/07/23 20:42 BP, HR, dizziness, and leg weakness. Home Medications Medication Instructions Recorded Confirmed Type montelukast 10 mg tablet 10 mg PO HS #90 tabs 07/09/22 06/01/24 Rx levalbuterol HCl 1.25 mg/3 mL 1.25 mg (3 mL) inhalation Q4H PRN 09/16/22 06/01/24 Rx solution for nebulization shortness of breath or wheezing #75 mL albuterol sulfate 90 mcg/actuation 2 puff inhalation Q4H PRN 11/13/22 06/01/24 Rx aerosol inhaler Shortness Of Breath Or Wheezing #8.5 grams fluticasone fur. 200 mcg-umeclid 1 inh inhalation DAILY #3 Inhalers 11/13/22 06/01/24 Rx 62.5 mcg-vilant 25 mcg inhalat.powder (Trelegy Ellipta) hydroxyzine HCl 25 mg tablet 25 mg PO DAILY PRN Anxiety 03/07/23 06/01/24 History sertraline 100 mg tablet 100 mg PO DAILY 03/07/23 06/01/24 History triamcinolone acetonide 55 mcg 2 spray intranasal DAILY PRN 03/07/23 06/01/24 History nasal spray aerosol (Nasacort allergies Allergy) benralizumab 30 mg/mL subcutaneous 30 mg subcut .Q OTHER MONTH 03/13/23 06/01/24 History syringe (Fasenra) levalbuterol tartrate 45 1 - 2 inh inhalation .[id number] PRN 12/29/23 06/01/24 Rx mcg/actuation aerosol inhaler shortness of breath or wheezing #15 grams budesonide 0.5 mg/2 mL suspension 0.5 mg inhalation UD 06/01/24 06/01/24 History for nebulization Past Med/Surg History Problem List Colitis (Acute) Shga txn prod E.coli NEC (Acute) Diarrhea (Acute) Nausea and vomiting (Acute) Acute dehydration (Acute) Shiga toxin-producing Escherichia coli (E. 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 infection (Acute) Hematochezia (Acute) Patient request for diagnostic testing Severe persistent asthma Encounter for examination following treatment at hospital Anxiety disorder due to general medical condition with panic attack Generalized anxiety disorder with panic attacks Asthma exacerbation (Acute) Allergic rhinitis due to animals Allergic rhinitis due to dust mite Acute sinusitis Peripheral eosinophilia Leukocytosis Occupational exposure to chemicals Uncontrolled severe persistent asthma (Acute) Medical History Recurrent severe major depressive disorder with anxiety Anxiety and depression Idiopathic scoliosis COVID-19 Acute respiratory failure with hypoxia Asthma Lymphadenopathy, inguinal Lymphadenopathy, axillary Surgical History H/O wisdom tooth extraction Family History Father Dyslipidemia Myxoma of heart Tobacco dependency Other Cancer Diabetes Heart disease Lung disease Denies family history of Asthma Social History Smoking Status: Never smoker Tobacco Type: Cigarettes Cigarettes Per Day: 2; Second Hand Exposure: No; Do You Dip or Chew Tobacco: No; Hx Alcohol Use: No Hx Substance Use: Yes Last Used Substance: Days (ago) Last Used Substance Other:: 05/29/2024 Substance Use Type Other:: medical marijuana Preferred Language: [place] Communication Ability: Effective Hearing Ability: Normal Pediatric Cardiologist Required: No Beliefs That Will Affect Care: None marital status: Single Current Living Situation: Significant Other Current Living Situation Comment: Lives with boyfriend current occupational status: employed current occupation: [employer] How many Children do You have: 0 Other Information That Helps Us Care for You: No Feels Safe at Home: Yes Childhood Exposure to Second-Hand Smoke: Yes Diet: regular caffeine: Yes Dental Care, Regularly: Yes Physical Activity Frequency: Daily Seatbelt Use: sometimes Sunscreen Use: Yes Assistive Devices: None Review of Systems Review of Systems: Neuro: (-) Falls, trauma, slurred speech HEENT: (-) SALAZAR, dizziness, dysphagia, visual or auditory changes CV: (-) CP, palpitations, swelling Resp: (-) SOB GI: (-) appetite changes, N/V/D, (+) blood in stool. (+) mid abdominal pain without radiation : (-) urinary changes Skin: (-) rashes Psych: (-) anxiety, depression Physical Exam Physical Exam: See Dr. Maya's addendum for physical examination findings Results & Data Results & Data Vital Signs (Past 12 Hours) Vital Signs Temp Pulse Pulse Resp BP BP Pulse Ox 06/01/24 09:05 78 18 133/72 100 06/01/24 08:13 72 06/01/24 08:10 100 06/01/24 08:10 85 18 127/82 100 06/01/24 07:19 36.8 C 72 20 143/84 H 97 O2 Del Method 06/01/24 09:05 Room Air 06/01/24 08:13 06/01/24 08:10 Room Air 06/01/24 08:10 Room Air 06/01/24 07:19 Room Air Laboratory Results Short CBC 06/01/24 Range/Units 07:40 WBC 9.65 (4.8-10.8) K/ul Hgb 15.6 (12.0-16.0) g/dl Hct 45.1 (37.0-47.0) % Plt Count 207 (130-400) K/uL BMP 06/01/24 07:40 Sodium 139 Potassium 3.4 L Chloride 104 Carbon Dioxide 26 BUN 8 Creatinine 0.71 Glucose 104 H Calcium 9.4 Liver Function 06/01/24 Range/Units 07:40 Total Bilirubin 0.7 (0.2-1.0) mg/dl AST 19 (13-39) U/L ALT 12 (7-52) U/L Alkaline Phosphatase 55 (34-104) U/L Albumin 4.6 (3.4-5.0) gm/dl Urine 06/01/24 Range/Units 08:30 Urine Color Dark Yellow Urine Appearance Clear (Clear) Urine pH 7.0 (4.5-7.5) Ur Specific [place] 1.026 (1.000-1.030) Urine Protein 1+ H (Negative) Urine Glucose (UA) Negative (Negative) Diagnostic Findings Abdomen/Pelvis CT 06/01/24 07:49 CT OF THE ABDOMEN AND PELVIS WITH CONTRAST CLINICAL HISTORY: Abdominal pain, nausea and vomiting. COMPARISON STUDY: CT of the abdomen and pelvis March 07, 2023. TECHNIQUE: Following IV administration of 94 mL of Optiray, axial images of the abdomen and pelvis were obtained from the lung bases to the proximal femurs. Images were reviewed in the axial, sagittal, and coronal planes. IV contrast was administered without complication. Automated exposure control was utilized for the study. A dose lowering technique was utilized adhering to the principles of ALARA. CT DOSE: 480.65 mGy.cm FINDINGS: Lung bases are unremarkable. No pneumatosis, free air or portal venous gas is present. Liver, spleen, adrenal glands, kidneys and pancreas are unremarkable. There is no biliary or pancreatic ductal dilatation. There is no hydronephrosis. The appendix is normal. There is no evidence for a bowel obstruction. Moderate wall thickening of the ascending colon and proximal to mid transverse colon is noted with pericolonic stranding. The appearance is similar to CT of May 08, 2023. There is no free air or abscess. A small amount of associated ascites is present. Major vasculature is patent. There are no fluid collections. There is no lymphadenopathy. The ovaries are not enlarged. IMPRESSION: 1. Moderate right colon wall thickening with adjacent stranding consistent with a nonspecific colitis, similar in appearance to CT of March 07, 2023. No free air or abscess. Trace associated ascites. 2. Normal appendix. No bowel obstruction. ACT 112: Negative or not required by law. Electronically signed by: Petey Jones M.D. 06/01/2024 9:44 AM Code Status & VTE Plan Code Status Full code in the event of cardiac respiratory arrest VTE Prophylaxis Plan VTE Prophylaxis will be ordered: Yes Supervising Physician Co-Signing Physician Notes Patient is a 28-year-old female with history of eosinophilic asthma, mood disorder and other medical problems presents with history of nausea, vomiting, diarrhea which has been ongoing and gradually worsening since 5 days duration. Patient is unable to keep any food due to significant nausea and vomiting. She had similar episode last year was found to have Shiga toxin E. coli which was treated conservatively. Patient also states that she has been having some blood in stool. Stool for C. difficile is negative. CT abdomen showed moderate right colon wall thickening and adjacent stranding consistent with nonspecific colitis similar to prior CT in 2022. I personally reviewed blood work and imaging studies. Physical Exam: Vitals signs as noted above General Appearance:Moderately built and nourished, no apparent distress Head: normocephalic, Atraumatic Eyes: normal inspection, EOMI Neck: supple, Trachea midline Respiratory/Chest: Normal breath sounds, CTA, No accessory muscle use Cardiovascular: S1, S2, No murmur Abdomen/GI:Soft, epigastric tender, Bowel sounds present Extremities/Musculoskeletal:normal inspection, no edema Neurologic/Psych:AAOX3, grossly no focal neurological deficits Skin: normal color, warm Intractable nausea, vomiting Colitis DD: Infectious/inflammatory bowel disease/due to THC Hypokalemia Stool for C. difficile negative Given Shiga toxin E. coli on stool studies, will avoid antibiotics given risk for HUS Will consult GI IV fluids, advance diet as tolerated Monitor for any significant bleeding issues Monitor and replete electrolytes as needed Will benefit from colonoscopy eventually as outpatient I personally interviewed and examined at bedside. Patient's care is coordinated with Sommer SHARMA. I have reviewed the advanced practitioner's documentation, and I agree with plan of care. Please refer to the documentation above for details of patient's presentation and for discussion of other issues. I spent a total [id number] coordinating, documenting, and providing care for this patient excluding time spent in the performance of separately billed services.
[2024-06-01] MEDS ORDERED: oxyCODONE HCL IR 5 MG TAB (IMMEDIATE RELEASE) PO PRN (11:30)
[2024-06-01] MEDS ORDERED: ALBUTEROL HFA 8 GM INHALER INH PRN (11:54)
[2024-06-01] MEDS ORDERED: LEVALBUTEROL 1.25 MG/3 ML NEB INH PRN (11:54)
[2024-06-01] MEDS ORDERED: FLUTICASONE PROPIONATE PRN (11:54)
--- NOTE | 2024-06-01 12:40 | Gastrointestinal Consultation ---
Date of Consultation June 01, 2024 Assessment & Plan (1) Diarrhea: (2) Shiga toxin-producing Escherichia coli (E. coli) (STEC), unspecified: Plan -Continue IV fluids & supportive care -Check CRP -Can pursue colonoscopy as an outpatient once acute infection resolves. Given her repeated E coli infections would exclude an underlying bowel condition making her vulnerable to repeated bacterial infections. -Typically antibiotics avoided as they have not been demonstrated to reduce symptoms and antibiotics are associated with increased risk of HUS History of Present Illness History of Present Illness Patient is a 28 yo female who presents to the ED due to acute nausea, vomiting, & diarrhea ongoing for 5 days. The patient reports she had a recent sinus surgery and now that she can actually taste food again she was craving a salad from [employer]. She notes that ever since eating that salad, she developed significant nausea, vomiting & diarrhea. She notes 8-10 episodes of vomiting per day along with 3 episodes of loose, bloody diarrhea every hour. She notes that she was seen at [facility] in [place] yesterday. She was given IV fluids & Zofran as she has been unable to keep food or water down. She had negative C diff. 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 Upon evaluation at [facility] ED she had stool studies positive for E coli Shiga toxin. CT abdomen/pelvis indicated a right sided colitis. No current leukocytosis. Interestingly, patient has a history of hospitalization in 2022 (March) for E coli/Shiga infection with similar CT findings. Symptoms at that time resolved spontaneously. She notes since arrival to the ED, she has been feeling better with supportive care. Patient has no known family history of IBD. No history of abdominal surgery. She has a history of Eosinophilic asthma. Allergies Allergy/AdvReac Type Severity Reaction Status Date / Time tramadol Allergy Severe Swelling Verified 10/07/23 20:42 of Lip/Tongue/Throat escitalopram [From Lexapro] AdvReac Severe increased Verified 10/07/23 20:42 BP, HR, dizziness, and leg weakness. Home Medications Medication Instructions Recorded Confirmed Type montelukast 10 mg tablet 10 mg PO HS #90 tabs 07/09/22 06/01/24 Rx levalbuterol HCl 1.25 mg/3 mL 1.25 mg (3 mL) inhalation Q4H PRN 09/16/22 06/01/24 Rx solution for nebulization shortness of breath or wheezing #75 mL albuterol sulfate 90 mcg/actuation 2 puff inhalation Q4H PRN 11/13/22 06/01/24 Rx aerosol inhaler Shortness Of Breath Or Wheezing #8.5 grams fluticasone fur. 200 mcg-umeclid 1 inh inhalation DAILY #3 Inhalers 11/13/22 06/01/24 Rx 62.5 mcg-vilant 25 mcg inhalat.powder (Trelegy Ellipta) hydroxyzine HCl 25 mg tablet 25 mg PO DAILY PRN Anxiety 03/07/23 06/01/24 History sertraline 100 mg tablet 100 mg PO DAILY 03/07/23 06/01/24 History triamcinolone acetonide 55 mcg 2 spray intranasal DAILY PRN 03/07/23 06/01/24 History nasal spray aerosol (Nasacort allergies Allergy) benralizumab 30 mg/mL subcutaneous 30 mg subcut .Q OTHER MONTH 03/13/23 06/01/24 History syringe (Fasenra) levalbuterol tartrate 45 1 - 2 inh inhalation .[id number] PRN 12/29/23 06/01/24 Rx mcg/actuation aerosol inhaler shortness of breath or wheezing #15 grams budesonide 0.5 mg/2 mL suspension 0.5 mg inhalation UD 06/01/24 06/01/24 History for nebulization Patient History Medical History Recurrent severe major depressive disorder with anxiety Anxiety and depression Idiopathic scoliosis COVID-19 Acute respiratory failure with hypoxia Asthma Lymphadenopathy, inguinal Lymphadenopathy, axillary Surgical History H/O wisdom tooth extraction Family History Father Dyslipidemia Myxoma of heart Tobacco dependency Other Cancer Diabetes Heart disease Lung disease Denies family history of Asthma Social History Smoking Status: Never smoker Tobacco Type: Cigarettes Cigarettes Per Day: 2; Second Hand Exposure: No; Do You Dip or Chew Tobacco: No; Hx Alcohol Use: No Hx Substance Use: Yes Last Used Substance: Days (ago) Substance Use Type Other:: Medical marijuana Preferred Language: [place] Communication Ability: Effective Hearing Ability: Normal Stock Worker Required: No Beliefs That Will Affect Care: None marital status: Single Current Living Situation: Significant Other Current Living Situation Comment: Lives with boyfriend current occupational status: employed current occupation: [employer] How many Children do You have: 0 Feels Safe at Home: Yes Childhood Exposure to Second-Hand Smoke: Yes Diet: regular caffeine: Yes Dental Care, Regularly: Yes Physical Activity Frequency: Daily Seatbelt Use: sometimes Sunscreen Use: Yes Assistive Devices: Glasses Review of Systems Constitutional: no fever and no chills Respiratory: no cough and no dyspnea Cardiovascular: no chest pain Gastrointestinal: + abdominal pain, + nausea, + vomiting, + diarrhea/loose stools and + blood in stools Physical Exam Constitutional: well developed Respiratory: normal respiratory effort Cardiovascular: Rate/Rhythm: regular rate Gastrointestinal (Abdomen): normal bowel sounds, soft, nontender, no hepatosplenomegaly Psychiatric: Orientation: alert and oriented x 3 Results & Data Vital Signs (Past 12 Hours) Vital Signs Temp Pulse Pulse Resp BP BP Pulse Ox 06/01/24 09:05 78 18 133/72 100 06/01/24 08:13 72 06/01/24 08:10 100 06/01/24 08:10 85 18 127/82 100 06/01/24 07:19 36.8 C 72 20 143/84 H 97 O2 Del Method 06/01/24 09:05 Room Air 06/01/24 08:13 06/01/24 08:10 Room Air 06/01/24 08:10 Room Air 06/01/24 07:19 Room Air PG Care Time/CCT Total # of Minutes Spent Total Time Spent with Patient: Total time spent is greater than 50% in coordination of care (as documented) at patient's floor/unit and/or counseling patient: Coding Level of Care Code 33852 IN/OBS CONSULT LVL 4,60M Diagnoses Diarrhea R19.7 Diarrhea type: unspecified type Shiga toxin-producing Escherichia coli (E. coli) (STEC), unspecified A49.8 (1) Diarrhea Diarrhea type: unspecified type Qualified Code(s): R19.7 - Diarrhea, unspecified
[2024-06-01] MEDS: metroNIDAZOLE 500 MG/100 ML BAG IV SCH (13:07)
[2024-06-01] MEDS: CIPROFLOXACIN / D5W 400 MG/200 ML BAG IV SCH (13:07)
[2024-06-01] MEDS: POTASSIUM CHLORIDE / WTR 10 MEQ/100 ML PLCT IV SCH (13:56)
[2024-06-01] MEDS ORDERED: MAGNESIUM HYDROXIDE SUSP 30 ML UDC PO PRN (14:26)
[2024-06-01] MEDS ORDERED: POLYETHYLENE (MIRALAX) 17 GM PACK PO PRN (14:26)
[2024-06-01] MEDS ORDERED: ACETAMINOPHEN 325 MG TAB PO PRN (14:26)
[2024-06-01] MEDS ORDERED: ALUMINUM/MAGNESIUM SUSP 30 ML UDC PO PRN (14:26)
[2024-06-01] MEDS ORDERED: Nursing to Pharmacy Communication SCH (15:00)
[2024-06-01] MEDS: SODIUM CHLORIDE 0.9% 500 ML IV SCH (15:09)
--- NOTE | 2024-06-01 15:46 | History & Physical Report ---
Date of Service June 01, 2024 Assessment & Plan Admission and Anticipated Discharge Date Admission Date: June 01, 2024 History of Present Illness Primary Care Provider: ZACHARY Middleton Allergies Allergy/AdvReac Type Severity Reaction Status Date / Time tramadol Allergy Severe Swelling Verified 10/07/23 20:42 of Lip/Tongue/Throat escitalopram [From Lexapro] AdvReac Severe increased Verified 10/07/23 20:42 BP, HR, dizziness, and leg weakness. Home Medications Medication Instructions Recorded Confirmed Type montelukast 10 mg tablet 10 mg PO HS #90 tabs 07/09/22 06/01/24 Rx levalbuterol HCl 1.25 mg/3 mL 1.25 mg (3 mL) inhalation Q4H PRN 09/16/22 06/01/24 Rx solution for nebulization shortness of breath or wheezing #75 mL albuterol sulfate 90 mcg/actuation 2 puff inhalation Q4H PRN 11/13/22 06/01/24 Rx aerosol inhaler Shortness Of Breath Or Wheezing #8.5 grams fluticasone fur. 200 mcg-umeclid 1 inh inhalation DAILY #3 Inhalers 11/13/22 06/01/24 Rx 62.5 mcg-vilant 25 mcg inhalat.powder (Trelegy Ellipta) hydroxyzine HCl 25 mg tablet 25 mg PO DAILY PRN Anxiety 03/07/23 06/01/24 History sertraline 100 mg tablet 100 mg PO DAILY 03/07/23 06/01/24 History triamcinolone acetonide 55 mcg 2 spray intranasal DAILY PRN 03/07/23 06/01/24 History nasal spray aerosol (Nasacort allergies Allergy) benralizumab 30 mg/mL subcutaneous 30 mg subcut .Q OTHER MONTH 03/13/23 06/01/24 History syringe (Fasenra) levalbuterol tartrate 45 1 - 2 inh inhalation .[id number] PRN 12/29/23 06/01/24 Rx mcg/actuation aerosol inhaler shortness of breath or wheezing #15 grams budesonide 0.5 mg/2 mL suspension 0.5 mg inhalation UD 06/01/24 06/01/24 History for nebulization Past Med/Surg History Problem List (Updated 06/01/24 @ 15:13 by Rubin Smith MD) Colitis (Acute) Shga txn prod E.coli NEC (Acute) Diarrhea (Acute) Nausea and vomiting (Acute) Acute dehydration (Acute) Shiga toxin-producing Escherichia coli (E. 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 infection (Acute) Hematochezia (Acute) Patient request for diagnostic testing Severe persistent asthma Encounter for examination following treatment at hospital Anxiety disorder due to general medical condition with panic attack Generalized anxiety disorder with panic attacks Asthma exacerbation (Acute) Allergic rhinitis due to animals Allergic rhinitis due to dust mite Acute sinusitis Peripheral eosinophilia Leukocytosis Occupational exposure to chemicals Uncontrolled severe persistent asthma (Acute) Medical History Recurrent severe major depressive disorder with anxiety Anxiety and depression Idiopathic scoliosis COVID-19 Acute respiratory failure with hypoxia Asthma Lymphadenopathy, inguinal Lymphadenopathy, axillary Surgical History H/O wisdom tooth extraction Family History Father Dyslipidemia Myxoma of heart Tobacco dependency Other Cancer Diabetes Heart disease Lung disease Denies family history of Asthma Social History Smoking Status: Never smoker Tobacco Type: Cigarettes Cigarettes Per Day: 2; Second Hand Exposure: No; Do You Dip or Chew Tobacco: No; Hx Alcohol Use: No Hx Substance Use: Yes Last Used Substance: Days (ago) Last Used Substance Other:: 05/29/2024 Substance Use Type Other:: medical marijuana Preferred Language: Romanian Communication Ability: Effective Hearing Ability: Normal Home Improvement Advisor Required: No Beliefs That Will Affect Care: None marital status: Single Current Living Situation: Significant Other Current Living Situation Comment: Lives with boyfriend current occupational status: employed current occupation: [employer] How many Children do You have: 0 Other Information That Helps Us Care for You: No Feels Safe at Home: Yes Childhood Exposure to Second-Hand Smoke: Yes Diet: regular caffeine: Yes Dental Care, Regularly: Yes Physical Activity Frequency: Daily Seatbelt Use: sometimes Sunscreen Use: Yes Assistive Devices: None Results & Data Vital Signs (Past 12 Hours) Vital Signs Temp Pulse Pulse Pulse Resp BP BP 06/01/24 15:32 37.1 C 70 17 127/76 06/01/24 12:48 74 16 122/90 06/01/24 12:46 122/90 06/01/24 09:05 78 18 133/72 06/01/24 08:13 72 06/01/24 08:10 06/01/24 08:10 85 18 127/82 06/01/24 07:19 36.8 C 72 20 143/84 H Pulse Ox O2 Del Method 06/01/24 15:32 99 Room Air 06/01/24 12:48 100 06/01/24 12:46 06/01/24 09:05 100 Room Air 06/01/24 08:13 06/01/24 08:10 100 Room Air 06/01/24 08:10 100 Room Air 06/01/24 07:19 97 Room Air Code Status & VTE Plan VTE Prophylaxis Plan VTE Prophylaxis will be ordered: Yes Supervising Physician Co-Signing Physician Notes I examined the patient and reviewed patient's chart , laboratory data and imaging studies. I agree with with assessment and plan of care as suggested by advanced practice provider. Recurrent acute colitis, Shiga toxin producing E. coli. Continue supportive measures. Advance diet as tolerated. Avoid antibiotics. Coding Level of Care Code INT OBSERVATION CARE 50M LVL 2
[2024-06-01] MEDS: LEVALBUTEROL TARTRATE 15 GM HFA.AER.AD INH PRN (16:01)
[2024-06-01] MEDS: NSS + 20MEQ KCL 20 MEQ/1,000 ML BAG IV SCH (16:38)
[2024-06-01] MEDS: ONDANSETRON INJ 2 MG/ML 2 ML VIAL IV PRN (18:31)
[2024-06-01] MEDS: MONTELUKAST SODIUM 10 MG TABLET PO SCH (19:42)
[2024-06-01] MEDS: BUDESONIDE 0.5 MG/2 ML VIAL (PULMICORT) INH SCH (20:38)
[2024-06-01] MEDS: hydrOXYzine HCl 25 MG TAB PO PRN (21:49)
--- OUTSIDE RECORDS SUMMARY | 2024-06-02 00:06 | External Medical Summary | Continuity of Care Document ---
Author Name Unknown Organization [facility] [address] [place] [address] [place] [id number] Care Team Providers Care Sider Mechanic Name Role Phone Sarah May Primary Care Physician [phone] Encounter [facility] [id number] Date(s): 05/29/24 - 05/29/24 [facility] [address] [facility] Otolaryngology - Head and Neck Surgery [address], [address], [address] [place] [address] [phone] Encounter Diagnosis Body mass index [BMI] 23.0-23.9, adult(Discharge Diagnosis) - 05/29/24 Chronic pansinusitis(Discharge Diagnosis) - 05/29/24 Nasal polyps(Discharge Diagnosis) - 05/29/24 Discharge Disposition: Home or Self Care Attending Physician: MD Harrington Johnathan D Referring Physician: ZACHARY May Elizabeth Allergies, Adverse Reactions, Alerts Substance Criticality Severity Reaction Reaction Severity Status ibuprofen Wheezing Shortness of breath Active Tylenol Shortness of br eath Wheezing Active traMADol Lip swelling Active escitalopram 1 Tingling Low blood pressure Active Cats Itchy eyes Hives Active Dogs Itchy eyes Hives Active 1Outside Source Comment: elevated blood pressure Assessment and Plan Extracted from: Title:Office Visit Note Author:MD Juany, Hannah Vale Date:05/29/24 1.Chronic pansinusitis 2.Nasal polyps Ms. Schwartz chronic rhinosinusitis nasal polyposis. Her pathology did show only few eosinophilsalthough she did have a moderate bulky polyp disease intraoperatively. I have asked her to continue through budesonide irrigations twice daily given theedematous findings still seen on her endoscopy and that known preoperative polyposis level. I did refill her budesonide prescription to the compounding pharmacy in [place] for her today. I will plan to see her back in 4 to 6 weeks time for reevaluation unless issues arise in the meantime. All of her questions were answeredand she agrees with the plan. Disclaimer: This note was completed in part using Wizeline Voice Recognition Software. Grammatical errors and word substitutions are possible. Ifthere areany concerns regarding the content of this dictation, please contact the provider for clarification. Immunizations Given and Recorded Vaccine Date Status Refusal Reason influenza virus vaccine, inactivated 05/25/17 Give n influenza virus vaccine, inactivated 05/29/16 Give n tetanus/diphtheria/pertuss, acel (Tdap) 05/29/16 G iven tetanus/diphtheria/pertuss, acel (Tdap) 06/02/11 G iven tetanus/diphtheria/pertuss, acel (Tdap) 10/11/97 R ecorded human papillomavirus vaccine 06/11/11 Given varicella virus vaccine 1 06/11/11 Given varicella virus vaccine 10/11/97 Recorded meningococcal conjugate vaccine 06/02/11 Given diphtheria-tetanus toxoids, DT (Ped) 02/05/05 Lavon rded diphtheria-tetanus toxoids, DT (Ped) 2 02/05/05 Re corded measles/mumps/rubella virus vaccine 10/11/97 Recor ded measles/mumps/rubella virus vaccine 10/20/94 Recor ded poliovirus vaccine, inactivated 10/08/97 Recorded poliovirus vaccine, inactivated 06/16/94 Recorded poliovirus vaccine, inactivated 01/23/94 Recorded poliovirus vaccine, inactivated 93 Recorded diphtheria/tetanus/pertuss, acel (DTaP) 11/23/95 R ecorded diphtheria/tetanus/pertuss, acel (DTaP) 05/18/94 R ecorded diphtheria/tetanus/pertuss, acel (DTaP) 01/23/94 R ecorded diphtheria/tetanus/pertuss, acel (DTaP) 93 R ecorded haemophilus b conjugate (PRP-T) vaccine 10/20/94 R ecorded haemophilus b conjugate (PRP-T) vaccine 02/20/94 R ecorded haemophilus b conjugate (PRP-T) vaccine 93 R ecorded haemophilus b conjugate (PRP-T) vaccine 93 R ecorded hepatitis B pediatric vaccine 02/20/94 Recorded hepatitis B pediatric vaccine 93 Recorded hepatitis B pediatric vaccine 93 Recorded 1Result Comment: [06/11/2011] verified by Radha Wright LPN 2Result Comment: [05/19/2011 Uncharted] in error Medications albuterol CFC free 90 mcg/inh MDI Start: 12/02/20 2:09:00 PM EDT, 2 puff, inhaled, qid, Disp# 1 each, Refills: 11, PRN: as needed for wheezing, Pharmacy: [facility] Start Date: 12/02/20 Status: Ordered budesonide 0.5 mg/2 mL inhalation suspension Start: 05/29/24 10:48:00 AM EDT, See Instructions, Disp# 60 mL, Refills: 11, Use 0.6mg/dose in sinusrinse bottle in each nostril twice daily, Note to Pharmacy: Use 0.6mg/dose in sinus rinse bottle ineach nostril twice daily, Pharmacy: [facility] Start Date: 05/29/24 Status: Ordered Fasenra Pen 30 mg/mL SQ solution Start: 01/24/24 2:05:00 PM EDT, 1 unknown unit, 0 Refill(s) Start Date: 01/24/24 Status: Ordered Florajen Acidophilus oral capsule Start: 04/27/24 8:36:00 AM EDT, 1 cap, PO, Daily, Disp# 7 cap, Please take while on antibiotic to prevent upset stomach, Pharmacy: [facility] Start Date: 04/27/24 Stop Date: 05/04/24 Status: Ordered hydrOXYzine hydrochloride 25 mg oral tablet Start: 01/24/24 2:06:00 PM EDT, 30 each, 0 Refill(s), TAKE 1 TABLET BY MOUTH NEEDED FOR ANXIETY Start Date: 01/24/24 Status: Ordered Keflex 500 mg oral capsule Start: 04/27/24 8:35:00 AM EDT, 1 cap, PO, q8h, Disp# 21 cap, Refills: 0, Pharmacy: [facility] Start Date: 04/27/24 Stop Date: 05/04/24 Status: Ordered levalbuterol 1.25 mg/3 mL for nebulization Start: 01/24/24 2:06:00 PM EDT, 90 mL, 0 Refill(s), INHALE 3 ML VIA NEBULIZER EVERY 4 HOURS NEEDED FOR WHEEZING. Start Date: 01/24/24 Status: Ordered Haswell 0.65% nasal spray Start: 04/27/24 12:18:00 PM EDT, 1 spray, each nostril, q2hWA (6a-10p) Start Date: 04/27/24 Status: Ordered oxyCODONE 5 mg oral tablet Start: 05/01/24 12:12:00 PM EDT, 1 tab, PO, q6h, Disp# 6 tab, Refills: 0, PRN: as needed for pain, Pharmacy: [facility] [id number] [facility] [place] Start Date: 05/01/24 Status: Ordered oxyCODONE 5 mg oral tablet Start: 04/27/24 12:37:00 PM EDT, 1 tab, PO, q6h, Disp# 15 tab, Refills: 0, Please take 1/2 tab or full tab as needed for breakthrough pain, PRN: as needed for pain, Pharmacy: [facility] Start Date: 04/27/24 Stop Date: 04/30/24 Status: Ordered sertraline 100 mg oral tablet Start: 01/24/24 2:05:00 PM EDT, 30 each, 0 Refill(s), TAKE 1 TABLET BY MOUTH EVERY DAY IN THE MORNING Start Date: 01/24/24 Status: Ordered Singulair 10 mg oral tablet Start: 01/06/21 12:47:00 PM EDT, 1 tab, PO, qPM, Disp# 30 tab, Refills: 3, Pharmacy: [facility] Start Date: 01/06/21 Status: Ordered Trelegy Ellipta Start: 04/27/24 7:03:00 AM EDT Start Date: 04/27/24 Status: Ordered Mental Status 05/29/24 Barriers to Learning one year None evide nt Mandatory Health Literacy Documentation Yes Health Literacy Communication Barriers N ever Primary Language Honduran Problem List Condition Confirmation Course Effective Dates Status Health St atus Informant Acne Confirmed Active Acute UTI Confirmed Active Anxiety and depression Confirmed Active Asthma Confirmed Active Chronic pansinusitis Confirmed Active Deviated septum Confirmed Active Exercise-induced asthma Confirmed Active Hx of extrinsic asthma Confirmed Active Nasal polyposis Confirmed Active Tobacco user Confirmed Active Diagnosis Diagnosis Type Effective Dates Health Status Clinical Service Informant Body mass index [BMI] 23.0-23.9, adult Discharge Diagnosis 05/29/24 Non-Specified Chronic pansinusitis Discharge Diagnosis 05/29/24 Nasal polyps Discharge Diagnosis 05/29/24 Vital Signs Most recent to oldest [Reference Range]: 1 Height 160.5 cm (05/29/24 10:43 AM) Patient Weight 60.5 kg (05/29/24 10:43 AM) Body Mass Index 23.49 kg/m2 (05/29/24 10:43 AM) Temperature [36.5-37.9 DegC] 36.1 DegC *LOW* (05/29/24 10:43 AM) Heart Rate 79 bpm (05/29/24 10:43 AM) Respiratory Rate 16 br/min (05/29/24 10:43 AM) Blood Pressure 124/79mmHg (05/29/24 10:43 AM) Social History Social History Type Response Tobacco Former smoker, Cigar ettes 1 Smoking Status Never smoked cigaret melissa Sex Female Sex Representation Female (finding) 1Quit about one year ago Otolaryngology Outpt Note * MD Juany, Jay D: PERFORM Event Display: Otolaryngology Outpt Note Authored Date: [id number] Chief Complaint Follow up: FESS, Chronic pansinusitis, Deviated septum History of Present Illness Ms. Burch a 28-year-old woman with a history of chronic rhinosinusitis nasal polyposis who status post endoscopic sinus surgeryin April for that condition. As since her first postoperative visit she feels like she is breathing much better through her nose. She is having no postnasal drainage or rhinorrhea. She does still feel likeShe has some crusting in her nose with hard mucusat times. She is doing nasal saline irrigations with budesonide twice daily. Physical Exam Vitals & Measurements T:36.1C HR:79(Monitored) RR:16 BP:124/79 SpO2:98% HT:160.5cm WT:60.500kg(Dosing) WT:60.5kg BMI:23.49 PHQ2 Data(Data Documented on:05/29/2024 09:18) Emotional health assessment NEGATIVE General:Well developed,Ambulatory Communication:Normalvoice quality Respiration:Unlabored,no stridor,no stertor Orientation: Oriented to person, place, time Mood/Affect:Pleasant,No acute distress Eyes: Extraocular movements intact, no chemosis or proptosis Head and Face: NCAT, no swelling/erythema/induration, salivary glands within normal limits, no facial asymmetry Nares: The nasal mucosa wasmoist. The inferior turbinates were essentially normal. Nasal blood vessels showed no sign of recent bleeding. Nasal septum wasmidline. Oral cavity/Oropharynx:Normal dentition,Nomandibular evelin, No gross lesions,oropharynxsymmetric, Mucous membranesmoist Neck: Thyrohyoid tendernesswas notpresent. No masses. Trachea midline. No thyromegaly or thyroid nodules are appreciated. Lymphatic: No palpable cervical adenopathy. PROCEDURE: Nasal endoscopy was carried out under topical lidocaine and Afrin spray with verbal consent for thepurpose of evaluatingthe patient'ssurgical cavities. [id number] rigid endoscope was placedinto the left nasal passage. Inspection of the entire nasal passage and nasopharynx revealswidely patent ethmoid, maxillary, andsphenoid cavities as well as frontal sinus. There is some mild edematous change along the roof of the ethmoid. There is no crusting or debris.The scope was then withdrawn and placed to the right nasal passage. In a similar fashion the entire nasal passagewas inspectedrevealing some lateralization with middle turbinate the small synechiae superiorly. However the ethmoid, maxillary, and sphenoid sinuses are widely patent with some edema along the roof and frontal recessno crusting or debris is noted. The patient tolerated the procedure well. Assessment/Plan 1.Chronic pansinusitis 2.Nasal polyps Ms. Schwartz chronic rhinosinusitis nasal polyposis. Her pathology did show only few eosinophilsalthough she did have a moderate bulky polyp disease intraoperatively. I have asked her to continue through budesonide irrigations twice daily given theedematous findings still seen on her endoscopy and that known preoperative polyposis level. I did refill her budesonide prescription to the compounding pharmacy in [place] for her today. I will plan to see her back in 4 to 6 weeks time for reevaluation unless issues arise in the meantime. All of her questions were answeredand she agrees with the plan. Disclaimer: This note was completed in part using Wizeline Voice Recognition Software. Grammatical errors and word substitutions are possible. Ifthere areany concerns regarding the content of this dictation, please contact the provider for clarification. Problem List/Past Medical History Ongoing Acne Acute UTI Anxiety and depression Asthma Chronic pansinusitis Deviated septum Exercise-induced asthma Hx of extrinsic asthma Nasal polyposis Tobacco user Resolved Hyperhydrosis disorder Tobacco user Medications albuterol(albuterol CFC free 90 mcg/inh MDI), 2 puff, inhaled, qid, PRN, 11 refills benralizumab(Fasenra Pen 30 mg/mL SQ solution) budesonide(budesonide 0.5 mg/2 mL inhalation suspension), See Instructions, 11 refills cephalexin(Keflex 500 mg oral capsule), 500 mg= 1 cap, PO, q8h fluticasone/umeclidinium/vilanterol(Trelegy Ellipta) hydrOXYzine(hydrOXYzine hydrochloride 25 mg oral tablet) lactobacillus acidophilus(Florajen Acidophilus oral capsule), 1 cap, PO, Daily levalbuterol(levalbuterol 1.25 mg/3 mL for nebulization) montelukast(Singulair 10 mg oral tablet), 10 mg= 1 tab, PO, qPM, 3 refills oxyCODONE(oxyCODONE 5 mg oral tablet), 5 mg= 1 tab, PO, q6h, PRN oxyCODONE(oxyCODONE 5 mg oral tablet), 5 mg= 1 tab, PO, q6h, PRN sertraline(sertraline 100 mg oral tablet) sodium chloride nasal(Haswell 0.65% nasal spray), 1 spray, each nostril, q2h (6a-10p) Allergies CatsItchy eyes, Hives DogsItchy eyes, Hives TylenolShortness of breath, Wheezing escitalopramTingling, Low blood pressure ibuprofenWheezing, Shortness of breath traMADolLip swelling Social History Smoking Status Never smoked cigarettes Tobacco - Denies Tobacco Use Type:Cigarettes Use:Former smoker - Comments: Quit about one year ago Immunizations Vaccine Date Status influenza virus vaccine, inactivated 05/25/2017 Given tetanus/diphtheria/pertuss, acel (Tdap) 05/29/2016 Given influenza virus vaccine, inactivated 05/29/2016 Given human papillomavirus vaccine 06/11/2011 Given varicella virus vaccine 06/11/2011 Given Comments : [06/11/2011] verified by Radha Wright LPN meningococcal conjugate vaccine 06/02/2011 Given tetanus/diphtheria/pertuss, acel (Tdap) 06/02/2011 Given diphtheria-tetanus toxoids, DT (Ped) 02/05/2005 Recorded varicella virus vaccine 10/11/1997 Recorded measles/mumps/rubella virus vaccine 10/11/1997 Recorded tetanus/diphtheria/pertuss, acel (Tdap) 10/11/1997 Recorded poliovirus vaccine, inactivated 10/08/1997 Recorded diphtheria/tetanus/pertuss, acel (DTaP) 11/23/1995 Recorded measles/mumps/rubella virus vaccine 10/20/1994 Recorded haemophilus b conjugate (PRP-T) vaccine 10/20/1994 Recorded poliovirus vaccine, inactivated 06/16/1994 Recorded diphtheria/tetanus/pertuss, acel (DTaP) 05/18/1994 Recorded haemophilus b conjugate (PRP-T) vaccine 02/20/1994 Recorded hepatitis B pediatric vaccine 02/20/1994 Recorded poliovirus vaccine, inactivated 01/23/1994 Recorded diphtheria/tetanus/pertuss, acel (DTaP) 01/23/1994 Recorded haemophilus b conjugate (PRP-T) vaccine 1993 Recorded diphtheria/tetanus/pertuss, acel (DTaP) 1993 Recorded poliovirus vaccine, inactivated 1993 Recorded haemophilus b conjugate (PRP-T) vaccine 1993 Recorded hepatitis B pediatric vaccine 1993 Recorded hepatitis B pediatric vaccine 1993 Recorded Recommendations Health Maintenance Pending(in the next year) OverDue Adult Folic Acid Supplementation due05/29/19and every 3year Adult Influenza Vaccine due03/05/24and every 1year Due Adult COVID-19 Vaccination due05/29/24Unknown Frequency Adult Social Determinants of Health Screening due05/29/24Unknown Frequency Cervical Cancer Screening due05/29/24Unknown Frequency Hepatitis C Screening due05/29/24One-time only Lipid Screening due05/29/24Unknown Frequency Pneumococcal Vaccine Adults and Adolescents with Chronic Illness due05/29/24One-time only Shingles Vaccine due05/29/24One-time only Satisfied(in the past 1 year) Satisfied Body Mass Index on05/29/24.Satisfied by ENEDINA Pa Kyla Electronic Signature on File CC: ZACHARY Middleton [facility] [address] [facility] [place] [id number] * Electronically Reviewed/Signed by: Jay Harrington MD, FACS Author Signature Dt/Tm:05/29/2024 10:58 AM Professor and Clinical Geneticist Department of Otolaryngology - Head & Neck Surgery [facility] [address] [place] [address] [place] Patient Care team information Care Team Personnel Name: Lissette De Dios Ann Position: Pharmacist Member Role: Pharmacy - Lifetime Name: ZACHARY May Elizabeth Position: Referring Member Role: Primary Care Provider Address: [facility] [address] [facility] [place] [address] [place] Care Team Related Persons Name: TRAN GREER
[2024-06-02 06:27] LABS: Hemoglobin 13.3 g/dl (12.0-16.0); Mean Corpuscular Hemoglobin 30.2 pg (25.0-34.0); Mean Corpuscular Hgb Conc 34.1 g/dL (32.0-36.0); Mean Corpuscular Volume 88.6 fL (80.0-100.0); Mean Platelet Volume 10.3 fL (9.4-12.4); Platelet Count 187 K/uL (130-400); RDW Coefficient of Variation 12.5 % (11.5-14.5); RDW Standard Deviation 40.9 fL (36.4-46.3); White Blood Count 7.03 K/ul (4.8-10.8)
[2024-06-02 06:48] LABS: Calcium 8.5 mg/dl (8.6-10.3); Creatinine Clr Calc Pharmacy 119.4 ml/min; Est GFR (African American) 144.2 ml/min; Est GFR (Non-African American) 124.4 ml/min; Magnesium 1.8 mg/dl (1.7-2.4); Phosphorus 2.8 mg/dl (2.5-4.9); Potassium 3.9 mmol/L (3.5-5.1)
[2024-06-02 07:48] VITALS: RESP 16; O2SAT 99
[2024-06-02] MEDS: UMECLIDINIUM/VILANTEROL 62.5/25MCG 7 PUFFS/INHALER INH SCH (08:09)
[2024-06-02] MEDS: FLUTICASONE FUROATE 200MCG 14 PUFFS/INHALER INH SCH (08:10)
[2024-06-02] MEDS: SERTRALINE HCL 100 MG TABLET PO SCH (08:10)
[2024-06-02] MEDS ORDERED: NON-FORMULARY MEDICATION (Fluticasone-Umeclidin-Vilanter [Trelegy Ellipta] 200-62.5-25 mcg INH SCH (09:00)
--- NOTE | 2024-06-02 12:38 | Hospitalist Progress Note ---
Date of Service June 02, 2024 Assessment & Plan (1) Intractable nausea and vomiting: (2) Shiga toxin-producing Escherichia coli (E. coli) (STEC), unspecified: Renetta Olsen is a 28y/o F with PMHx significant for eosinophilic asthma, chronic frontal sinusitis, nasal polyps, scoliosis of thoracolumbar spine, left cervical radiculopathy, PTSD/PAIGE and medical marijuana use who presented to the ED on 06/01/24 for evaluation of nausea/vomiting and diarrhea. Patient was experiencing 8-10 episodes of vomiting per day along with 3 episodes of loose, bloody diarrhea every hour x 5 days at time of admission. Patient had been seen at [facility] in the ED on 05/31/24 was was given IVF and Zofran with some relief. She tested negative for C. difficile at that time. Intractable N/V, Shiga Toxin-Producing E. Coli: Patient had a previous admission in March 2023 with positive Shiga toxin which resolved spontaneously with conservative management. She was evaluated by GI during that admission but at that time her symptoms had generally resolved so there was no follow-up appointment established. Lab work on admission was rather unremarkable with exception of a low K+ level 2/2 dehydration. CTAP this admission revealed a moderate right colon wall thickening with adjacent stranding consistent with a nonspecific colitis. Stool culture was positive for shiga toxin-producing E. coli, C.diff testing ended up being negative once again. GI was consulted. Conversation was had regarding whether or not to start ABX therapy, however according to GI --> antibiotics should be avoided as they have not been demonstrated to reduce symptoms and are associated with increased risk of HUS. Continue IVF w/ NSS + KCl until she tolerates a good diet. She will need a GI follow-up appointment in order to pursue a routine colonoscopy as an outpatient once her acute infection resolves given her repeated E. coli infections --> would exclude an underlying bowel condition making her vulnerable to repeated bacterial infections. Will switch her from PRN IV Zofran to PRN IV Benadryl for N/V, could use Droperidol PRN if needed. Zofran is not recommended in patients with shiga toxin-producing E. coli infections according to [employer] due to its QT interval prolonging effect. K+ level has improved to 3.9 today. Eosinophilic Asthma: Currently on for Fasenra every other month, will continue as outpatient. Can continue home meds. Chronic, currently following with her PCP. Was following with Dr. Mcgovern [[facility]], however stopped due to insurance. Anxiety and Depression: Chronic, continue home Zoloft. DVT Prophylaxis: TEDs/SCDs Code Status: FULL CODE PCP: ZACHARY Middleton Disposition: Currently admitted in Med/Surg - If able to advance her diet with good tolerance, she may be able to be discharged home today. Patient seen in collaboration with Dr. Huizar. Please see addendum. I spent a total of 50 minutes coordinating, documenting, and providing care for this patient excluding time spent in the performance of separately billed services. This included personally reviewing all current laboratories and imaging studies, medical reconciliation, outpatient chart review and discussion with specialists. This chart was completed in part utilizing Speech Voice Recognition Software. Grammatical errors, random word insertions, pronoun errors, and incomplete sentences are an occasional consequence of this system due to software limitations, ambient noise, and hardware issues. Any formal questions or concerns about the content, text, or information contained within the body of this dictation should be directly addressed to the provider for clarification. Admission and Anticipated Discharge Date Admission Date: June 01, 2024 Subjective Patient reports that she had approximately 15 bouts of loose, bloody diarrhea since last night. She was still feeling rather nauseous and had an episode of vomiting before I entered her room. She mentions that she had taken her Zoloft this morning and thinks that may have upset her stomach. She did tolerate some Jell-O last night without issue. Discussed advancing her diet slowly and she was agreeable. She is not having any abdominal pain. She has been up and moving around to the bathroom without any issue. Denies any lightheadedness or dizziness. Review of Systems Review of Systems: At least ten systems reviewed and negative, except as noted in the subjective section. Physical Exam Physical Exam: General: WD/WN, vitals as above, NAD, ill-appearing, sitting up at the side of the bed, very pleasant. A+Ox3, euthymic affect. HEENT: Normocephalic, atraumatic. Normal inspection, PERRL, conjunctivae normal, anicteric sclerae, oropharynx normal. Respiratory: Normal respiratory effort, lungs clear to auscultation, no wheeze, rales, rhonchi. No accessory muscle use. Cardiovascular: Regular rate, rhythm, no murmur, normal peripheral pulses, no BLE edema. Vessels: No JVD. Abdomen/GI: Normal bowel sounds, soft, very mildly tender throughout, no hepatosplenomegaly. Extremities/Musculoskeletal: No cyanosis or clubbing, extremities motor strength intact, moves all extremities. Neurologic: EOMI, no focal deficits, CN's II-XI not formally tested but appear grossly intact bilaterally. Skin: No rashes, normal color, warm/dry. Results & Data Results & Data Vital Signs (Past 12 Hours) Vital Signs Temp Pulse Resp BP Pulse Ox O2 Del Method 06/02/24 07:47 36.8 C 66 16 113/67 99 Room Air Laboratory Results Short CBC 06/02/24 Range/Units 06:07 WBC 7.03 (4.8-10.8) K/ul Hgb 13.3 (12.0-16.0) g/dl Hct 39.0 (37.0-47.0) % Plt Count 187 (130-400) K/uL BMP 06/02/24 06:07 Sodium 140 Potassium 3.9 Chloride 110 H Carbon Dioxide 24 BUN 4 L Creatinine 0.57 L Glucose 82 Calcium 8.5 L
[2024-06-02] MEDS ORDERED: diphenhydrAMINE 50 MG/ML VIAL IV PRN (13:42)
--- NOTE | 2024-06-02 14:39 | Discharge Summary ---
Date of Service June 02, 2024 Admission HPI Per Admitting Provider Ms. Olsen is a 28-year-old female that presented to the ED today with complaints of nausea, vomiting and diarrhea that has been occurring for the past 5 days; with up to 8-10 bouts of vomiting. She reports that she is unable to keep any food or water down. Patient was seen at [facility] in [place] last evening and was given IV fluids and Zofran with relief. She did test negative for C. difficile at that time. Reportedly her white count was 12 last evening. 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 She does report insensitivities to certain dairy products. Patient has a recent admission March 2023 with positive Shiga toxin which was resolved spontaneously with conservative management. She was evaluated by GI during that admission but at that time her symptoms have generally resolved so there was no follow-up appointment established. She reports that her symptoms do exacerbate around her period which she reports heavy menses. Additional past medical history includes eosinophilic asthma for which she was following with navigating officer Dr. Mcgovern however stopped due to insurance reasons and is currently being managed with Fasenra. She had sinus surgery 04/27; with polyp removal And was on antibiotics including azithromycin postop without any issues. She reports significant sensitivities to certain pain medications that includes tongue and lip numbness and swelling. CTAP: nonspecific colitis; no free air or abscess. Trace associated ascites. Normal appendix. No bowel obstruction. No leukocytosis today; reportedly last evening at [facility] 12k. Pt denies SALAZAR, dizziness, chest pain, palpitations, neuropathy, recent falls or trauma. Pt denies tobacco use, alcohol use, daily recreational edible marijuana. She reports that her pain improved overnight however today it has returned and she is unable to keep any liquids or food down. She presented to the ED today abdominal pelvis CT was performed revealing nonspecific colitis with trace abdominal ascites. She has received 1 LNS be she does have a history having the positive should have E. coli and occurred 1 year ago and tediously resolved with conservative measures Patient has a past medical history that includes eosinophilic asthma and anxiety/depression. She gets Fasenra Q8 weeks. She is hemodynamically stable and on room air. No leukocytosis today mild hypokalemia with a K of 3.4. hCG negative today. Patient will be admitted for further evaluation and management of her Shiga E. Coli toxin, N/V/D, work up for hematochezia with GI consultation. Clear Liquid diet with lactose intolerance added. Considered starting Cipro/Flagyl; however, strong correlation with HUS. Continue IVF @ 100mL/hour x2 bags and reassess; given her ketonuria believe she is intravascularly dry due to vomiting. Low threshold to consider an autoimmune contribution to her symptoms like IBD/Celiacs; likely needing a colonoscopy for diagnosis once colitis resolved. Please see A/P for further details. Admission Exam Per Admitting Provider General Appearance:Moderately built and nourished, no apparent distress Head: normocephalic, Atraumatic Eyes: normal inspection, EOMI Neck: supple, Trachea midline Respiratory/Chest: Normal breath sounds, CTA, No accessory muscle use Cardiovascular: S1, S2, No murmur Abdomen/GI:Soft, epigastric tender, Bowel sounds present Extremities/Musculoskeletal:normal inspection, no edema Neurologic/Psych:AAOX3, grossly no focal neurological deficits Skin: normal color, warm Principal Diagnosis Diarrhea, Nausea/Vomiting 2/2 Shiga Toxin-Producing E. Coli Infection Discharge Exam General: WD/WN, vitals as above, NAD, sitting up in bed, very pleasant. A+Ox3, euthymic affect. HEENT: Normocephalic, atraumatic. Normal inspection, PERRL, conjunctivae normal, anicteric sclerae, oropharynx normal. Respiratory: Normal respiratory effort, lungs clear to auscultation, no wheeze, rales, rhonchi. No accessory muscle use. Cardiovascular: Regular rate, rhythm, no murmur, normal peripheral pulses, no BLE edema. Vessels: No JVD. Abdomen/GI: Normal bowel sounds, soft, nontender, no hepatosplenomegaly. Extremities/Musculoskeletal: No cyanosis or clubbing, extremities motor strength intact, moves all extremities. Neurologic: EOMI, no focal deficits, CN's II-XI not formally tested but appear grossly intact bilaterally. Skin: No rashes, normal color, warm/dry. Discharge Data Allergies Allergy/AdvReac Type Severity Reaction Status Date / Time acetaminophen [From Tylenol] Allergy Severe Wheezing Verified 06/02/24 13:32 dicyclomine [From Bentyl] Allergy Severe Lip Verified 06/02/24 13:32 Swelling & Wheezing ketorolac [From Toradol] Allergy Severe Lip Verified 06/02/24 13:32 Swelling & Wheezing promethazine [From Phenergan] Allergy Severe Lip Verified 06/02/24 13:32 Swelling & Wheezing tramadol Allergy Severe Swelling Verified 06/02/24 13:32 of Lip/Tongue/Throat escitalopram [From Lexapro] AdvReac Severe increased Verified 06/02/24 13:32 BP, HR, dizziness, and leg weakness. Consultations 06/01/24 11:30 Consult Gastroenterology Routine Ordered Studies 06/01/24 07:49 CT abd pelvis IV con only Stat Hospital Course (1) Diarrhea: (2) Nausea and vomiting: (3) Shiga toxin-producing Escherichia coli (E. coli) (STEC), unspecified: Renetta Olsen is a 28y/o F with PMHx significant for eosinophilic asthma, chronic frontal sinusitis, nasal polyps, scoliosis of thoracolumbar spine, left cervical radiculopathy, PTSD/PAIGE and medical marijuana use who presented to the ED on 06/01/24 for evaluation of nausea/vomiting and diarrhea. Patient was experiencing 8-10 episodes of vomiting per day along with 3 episodes of loose, bloody diarrhea every hour x 5 days at time of admission. Patient had been seen at [facility] in the ED on 05/31/24 was was given IVF and Zofran with some relief. She tested negative for C. difficile at that time. Intractable N/V, Shiga Toxin-Producing E. Coli: Patient had a previous admission in March 2023 with positive Shiga toxin which resolved spontaneously with conservative management. She was evaluated by GI during that admission but at that time her symptoms had generally resolved so there was no follow-up appointment established. Lab work on admission was rather unremarkable with exception of a low K+ level 2/2 dehydration. CTAP this admission revealed a moderate right colon wall thickening with adjacent stranding consistent with a nonspecific colitis. Stool culture was positive for shiga toxin-producing E. coli, C.diff testing ended up being negative once again. GI was consulted. Conversation was had regarding whether or not to start ABX therapy, however according to GI --> antibiotics should be avoided as they have not been demonstrated to reduce symptoms and are associated with increased risk of HUS. Patient has improved significantly with IVF, her K+ level is now WNL. She is tolerating a soft, regular diet without any issue. No more episodes of vomiting since this morning. She is scheduled to establish with [facility] in July 2024. Patient has her PCP follow-up next week with Dr. Murguia. SHE NEEDS TO HAVE 2 NEGATIVE SHIGA TOXIN STOOL TESTS IN ORDER TO RETURN TO WORK. Instructed patient to also ask Dr. Murguia if she could possibly get in sooner with [facility]. Patient will need to have a routine colonoscopy done as an outpatient once her acute infection resolves in order to rule out any underlying bowel condition(s) making her more vulnerable to repeated bacterial infections. Eosinophilic Asthma: Currently on for Fasenra every other month, will continue as outpatient. Can continue home meds. Chronic, currently following with her PCP. Was following with Dr. Mcgovern [[facility]], however stopped due to insurance. Anxiety and Depression: Chronic, continue home Zoloft. PCP: ZACHARY Middleton Disposition: Patient is being discharged home in stable condition. Return precautions were discussed, including fever, increase in frequency/amount of bloody diarrhea, poor oral intake, etc. Will send patient home with a prescription for Zofran to take PRN for nausea/vomiting. She was instructed to take no more than 2-3 doses/day due to the risk of QT prolongation. Patient seen in collaboration with Dr. Huizar. Please see addendum. I spent a total of 55 minutes coordinating, documenting, and providing care for this patient excluding time spent in the performance of separately billed services. This included personally reviewing all current laboratories and imaging studies, medical reconciliation, outpatient chart review and discussion with specialists. This chart was completed in part utilizing Speech Voice Recognition Software. Grammatical errors, random word insertions, pronoun errors, and incomplete sentences are an occasional consequence of this system due to software limitations, ambient noise, and hardware issues. Any formal questions or concerns about the content, text, or information contained within the body of this dictation should be directly addressed to the provider for clarification. Home Health Attestation I certify that this patient is under my care and that I, or a physicians botany laboratory assistant working with me, had a face to-face encounter that meets the home health [id number] encounter requirements with this patient. The encounter with the patient was in whole, or in part, for the following medical condition, which is the primary reason for home health care (list m edical condition): I certify that, based on my findings, the following services are medically necessary home health services: My clinical findings support the need for the above services because: Further, I certify that my clinical findings support that this patient is homebound (i.e. absences from home require considerable and taxing effort and are for medical reasons or restorationist services or infrequently or of short duration when for other reasons) because: Certification for Home Health Services: Based on the above findings, I certify that this patient is confined to the home and needs intermittent [facility] care, physical therapy and/or speech t herapy or continues to need occupational therapy. The patient is under my care, and I have initiated the establishment of the plan of care. This patient will be followed by a physician who will periodically review the plan of care. Total Time Total Time Spent Total Time Spent (In Minutes): 55 Discharge Plan Discharge Items Patient Disposition: Home - Self-Care Reason For Visit: N/V/D (+) SHIGA ECOLI Discharge Diagnosis: Diarrhea & Nausea/Vomiting 2/2 Shiga Toxin-Producing E. Coli Infection Activity: Resume your previous activity Non-emergency contact: Primary Care Provider Call non-emergency contact if: you have any medication questions, your symptoms worsen, your pain is not controlled and you have a fever Follow-up/Referrals: Sarah May CRNP [Primary Care Provider] - (Date & Time 06/07/2024 3:20 PM Provider Elmer Murguia MD Department Family Practice [facility] ) Diet: Lactose Intolerant Addtl Attending Provider Instructions: Ingrid, You were admitted to the hospital due to nausea/vomiting/diarrhea and found to have a shiga toxin-producing E. coli infection. We treated you with IV fluids and IV anti-nausea medication as well with improvement of your symptoms. We are discharging you home. Please continue to hydrate yourself appropriately with adequate fluid intake. As we had discussed earlier, I recommend that you consume electrolyte replacing drinks such as Gatorade or Pedialyte to help maintain your hydration status. Please continue to slowly advance your diet as tolerated and make sure you are taking your medications on a full stomach to avoid any additional gastrointestinal upset. You are being sent home with a prescription for oral Zofran. This is a medication to help with your nausea and vomiting. Please use this medication sparingly and do NOT take more than 2-3 doses per day as this medication can cause cardiac arrhythmias. Although this reaction is RARE, your risk is elevated given your shiga toxin-producing E. coli infection as we have previously discussed. This medication was sent to the [facility] pharmacy in [employer] on [address] in [place]. You have a follow-up appointment in July to establish with [facility] gastroenterology as outline below. However, please ask Dr. Murguia next week if you are able to get in any sooner time with [facility] gastroenterology. This will hopefully shorten the wait for you to have a routine colonoscopy done sooner rather than later. A work order has been provided for you. UPCOMING APPOINTMENTS Date & Time: 06/07/2024 @ 3:20 PM Provider: Elmer Murguia MD Department: [facility] Date & Time: 07/28/2024 @ 10:00 AM Department: [facility] Provider: Marylou Vital PA-C Location: [address] [place] [address] SEEK MEDICAL ATTENTION IF YOU HAVE: * temperature above 101F * chest pain or trouble breathing * abdominal pain, nausea, vomiting * diarrhea, dark stools or bloody stools * any unanswered questions or concerns Call 911 if symptoms are severe. Please take good care of yourself. It has been a pleasure taking care of you. If you have any questions regarding your recent hospitalization please contact [facility] and request [facility] Hospitalist @ [phone]. Pending Studies at Discharge: No Stand-Alone Forms: My [facility], Work/School Release, Smoking Cessation Medications and DC Order Prescriptions: New ondansetron 4 mg tablet,disintegrating 4 mg PO Q8H PRN (Reason: nausea and vomiting) Qty: 14 0RF Continued montelukast 10 mg tablet 10 mg PO HS Qty: 90 1RF levalbuterol HCl 1.25 mg/3 mL solution for nebulization 1.25 mg inhalation Q4H PRN (Reason: shortness of breath or wheezing) Qty: 75 5RF albuterol sulfate 90 mcg/actuation HFA aerosol inhaler 2 puff INHALATION Q4H PRN (Reason: Shortness Of Breath Or Wheezing) Qty: 8.5 2RF Trelegy Ellipta 200-62.5-25 mcg blister with device 1 inh inhalation DAILY Qty: 3 3RF sertraline 100 mg tablet 100 mg PO DAILY triamcinolone acetonide [Nasacort Allergy] 55 mcg Aerosol,[employer] 2 spray INTRANASAL DAILY PRN (Reason: allergies) Rx Instructions: administer into each nostril hydroxyzine HCl 25 mg tablet 25 mg PO DAILY PRN (Reason: Anxiety) Fasenra 30 mg/mL syringe 30 mg subcut .Q OTHER MONTH Rx Instructions: INJECT 30MG SQ EVERY 8 WEEKS APPROVEDTHR MEDICAL BENEFIT GOOD 09/25/22-09/24/23 [id number] budesonide 0.5 mg/2 mL suspension for nebulization 0.5 mg inhalation UD Rx Instructions: not sure of this medication but recently filled 05/29 levalbuterol tartrate 45 mcg/actuation HFA aerosol inhaler 1 - 2 inh inhalation .[id number] PRN (Reason: shortness of breath or wheezing) Qty: 15 1RF Rx Instructions: 1 to 2 puffs every 4-6 hours as needed for shortness of breath/wheezing Discharge Orders: Discharge Order (Routine); Ordered 06/02/24 Ordered By: Jia Pérez/Other Patient Handouts: E. Coli Infection Admission Data Admit Date/Time: 06/01/24 11:11 Attending Provider: Jennifer Huizar Admit Provider: Sd Maya Primary Care Provider: Sarah May Other Providers: Colt Mcclain Other Interventions: Discharge Summary Assessment (RN) Last Done: 06/02/24 16:31 Supervising Physician Co-Signing Physician Notes Patient is a 28-year-old female with history of eosinophilic asthma, mood disorder and other medical problems presents with history of nausea, vomiting, diarrhea which has been ongoing and gradually worsening since 5 days duration. Patient is unable to keep any food due to significant nausea and vomiting. She had similar episode last year was found to have Shiga toxin E. coli which was treated conservatively. Patient also states that she has been having some blood in stool. Stool for C. difficile is negative. CT abdomen showed moderate right colon wall thickening and adjacent stranding consistent with nonspecific colitis similar to prior CT in 2022. I personally reviewed blood work and imaging st udies. Physical Exam: Vitals signs as noted above General Appearance:Moderately built and nourished, no apparent distress Head: normocephalic, Atraumatic Eyes: normal inspection, EOMI Neck: supple, Trachea midline Respiratory/Chest: Normal breath sounds, CTA, No accessory muscle use Cardiovascular: S1, S2, No murmur Abdomen/GI:Soft, epigastric tender, Bowel sounds present Extremities/Musculoskeletal:normal inspection, no edema Neurologic/Psych:AAOX3, grossly no focal neurological deficits Skin: normal color, warm Intractable nausea, vomiting Colitis DD: Infectious/inflammatory bowel disease/due to THC Hypokalemia Stool for C. difficile negative Given Shiga toxin E. coli on stool studies, will avoid antibiotics given risk for HUS Will consult GI IV fluids, advance diet as tolerated Monitor for any significant bleeding issues Monitor and replete electrolytes as needed Will benefit from colonoscopy eventually as outpatient I personally interviewed and examined at bedside. Patient's care is coordinated with Sommer SHARMA. I have reviewed the advanced practitioner's documentation, and I agree with plan of care. Please refer to the documentation above for details of patient's presentation and for discussion of other issues. I spent a total [id number] coordinating, documenting, and providing care for this patient excluding time spent in the performance of separately billed services. Notes For Next Care Provider Patient needs to have 2 NEGATIVE SHIGA TOXIN STOOL TESTS in order to return back to work! Medication Changes From Visit I have seen and discussed the case with the collaborating advanced practitioner. I agree with the above DS. I have reviewed and confirmed the patients medical history, the findings on physical examination, and the patients diagnosis and treatment plan with Justyn PHAM and agree with the information documented. Ms Olsen is a 28 year old woman with shiga toxin induced diarrhea. Exam benign. Patient with history of this same occurrence 2022. Patient treated conservatively with improvement in symptoms. On day of discharge patient eating well and ambulating. Patient with reduced stool output and no vomiting. Discussed given history of sinusitis, eosinollic asthma, and recurrent gi infections/food bourne, that patient should follow up and consider immunological eval. Patient verbalized understanding. Rest of plan as above. I spent a total of 20 minutes coordinating, documenting, and providing care for this patient excluding time spent in the performance of separately billed services. All of the aforementioned completed outside of collaborating with the assigned advanced practitioner for a full treatment plan. I have reviewed the advanced practitioner's documentation, and I agree with, and take responsibility for the plan of care
[2024-06-02 16:15] VITALS: BP 127/78; PULSE 67; TEMP 98.6
== END 2024-06-02 17:14 | disposition home or self-care (01) | DRG 372 ==
LOC: ED 07:09 → 3E 11:11 → SUATTDRO 11:11 → 3E 14:10